=== PATIENT | female | born 1965 | race African-American/Black ===

== ENCOUNTER 2018-07-12 09:28 | Inpatient (IN) | payer OTHER ==
[2018-07-12 09:46] VITALS: BMI 20.9
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
[2018-07-12] MEDS ORDERED: P-EPHED 60MG/TRIPROLIDI 2.5MG TABLET PO PRN (11:48)
[2018-07-12] MEDS ORDERED: LOPERAMIDE HCL 2 MG CAPSULE PO PRN (11:48)
[2018-07-12] MEDS ORDERED: ACETAMINOPHEN 325 MG TABLET (FP) PO PRN (11:48)
[2018-07-12] MEDS ORDERED: hydrOXYzine PAMOATE 25 MG CAPSULE (FP) PO PRN (11:48)
[2018-07-12] MEDS ORDERED: MAG HYDROX/AL HYDROX/SIMETH 30 ML UNIT-DOSE CUP PO PRN (11:48)
[2018-07-12] MEDS ORDERED: MENTHOL/PHENOL 1 EACH UD MM PRN (11:48)
[2018-07-12] MEDS ORDERED: guaiFENesin/D-METHORPHAN HB 10 ML UNIT-DOSE CUPS PO PRN (11:48)
[2018-07-12] MEDS ORDERED: MAGNESIUM CITRATE 300 ML BOTTLE PO PRN (11:48)
[2018-07-12] MEDS ORDERED: METHADONE HCL 10 MG TABLET (FOR DETOX USE ONLY) PO ONE ×2 (12:30→23:00)
[2018-07-12] MEDS: diazePAM 5 MG TABLET PO PRN ×2 (12:35→22:36)
[2018-07-12] MEDS: AMMONIUM LACTATE 12% LOTION 225 GM BOTTLE TP SCH ×2 (14:01→22:37)
[2018-07-12] MEDS: cloNIDine HCL 0.1 MG TABLET PO SCH (22:36)
[2018-07-12] MEDS: MELATONIN 5 MG TABLETS PO PRN (22:36)
[2018-07-12] MEDS: CYCLOBENZAPRINE HCL 10 MG TABLET (FP) PO PRN (22:36)
[2018-07-12] MEDS: MAGNESIUM HYDROX 2400MG/30ML ORAL SUSPENSION 30 ML CUP PO PRN (22:40)
[2018-07-12 22:49] LABS: URINE APPEARANCE SLCLOUDY; URINE BILIRUBIN NEGATIVE (<2.0 mg/dL); URINE COLOR YELLOW; URINE GLUCOSE (UA) NEGATIVE (NEGATIVE); URINE KETONE NEGATIVE (NEGATIVE); URINE LEUK ESTERASE NEGATIVE (NEGATIVE); URINE NITRITE POSITIVE (NEGATIVE); URINE PROTEIN NEGATIVE (NEGATIVE); URINE UROBILINOGEN NEGATIVE mg/dL (0.2-1.0)
[2018-07-12 22:55] LABS: EPI CELLS RARE /HPF (FEW); URINE MUCUS RARE
[2018-07-12] MEDS: THIAMINE HCL 100 MG TABLET (FP) PO SCH (23:00)
--- NOTE | 2018-07-13 09:59 | PN ---
S COWS - Scale Resting Pulse: 0= [place] 80 or Below Sweatin= Chills/Flushing Restless Observation: 1= Difficult to Sit Still Pupil Size: 1= Pupils >than Normal Bone or Joint Aches: 2= Severe Diffuse Aches Runny Nose/ Eye Tearin= Runny Nose/Eyes GI Upset > 30mins: 1= Stomach Cramp Tremor Observation of Outstretched Hands: 1= Tremor [place], Not Seen Yawning Observation: 1= 1-2x During Session Anxiety or Irritability: 1=Feels Anxious/Irritable Goose Flesh Skin: 3=Piloerection COWS Score: 14 BHS Progress Note (SOAP) Subjective: running nose body aches joints pain back pain tremor sweat anxiety Objective: 07/13/18 09:59 Vital Signs Temperature 98.3 F 07/13/18 09:23 Pulse Rate 65 07/13/18 09:23 Respiratory Rate 18 07/13/18 09:23 Blood Pressure 113/71 07/13/18 09:23 O2 Sat by Pulse Oximetry (%) Laboratory Last Values Urine Color Yellow 07/12/18 22:30 Urine Appearance Slcloudy 07/12/18 22:30 Urine pH 6.0 (5.0-8.0) 07/12/18 22:30 Ur Specific [place] 1.020 (1.010-1.035) 07/12/18 22:30 Urine Protein Negative (NEGATIVE) 07/12/18 22:30 Urine Glucose (UA) Negative (NEGATIVE) 07/12/18 22:30 Urine Ketones Negative (NEGATIVE) 07/12/18 22:30 Urine Blood Negative (NEGATIVE) 07/12/18 22:30 Urine Nitrite Positive (NEGATIVE) 07/12/18 22:30 Urine Bilirubin Negative (<2.0 mg/dL) 07/12/18 22:30 Urine Urobilinogen Negative mg/dL (0.2-1.0) 07/12/18 22:30 Ur Leukocyte Esterase Negative (NEGATIVE) 07/12/18 22:30 Urine WBC (Auto) 2 /hpf (3-5) 07/12/18 22:30 Urine RBC (Auto) <1 /hpf (0-3) 07/12/18 22:30 Ur Epithelial Cells Rare /HPF (FEW) 07/12/18 22:30 Urine Mucus Rare 07/12/18 22:30 lab noted Assessment: 07/13/18 10:00 withdrawal sx Plan: continue detox
[2018-07-13] MEDS ORDERED: METHADONE HCL 10 MG TABLET (FOR DETOX USE ONLY) PO ONE (10:00)
[2018-07-13 10:30] LABS: HEMOGLOBIN 11.3 GM/dL (10.7-15.3); MCH 36.3 pg (25.7-33.7); MCHC 35.2 g/dl (32.0-36.0); MEAN CELL VOLUME 103.2 fl (80-96); MEAN PLT VOLUME 8.6 fl (7.5-11.1); PLATELET COUNT 202 K/MM3 (134-434); RBC 3.11 M/mm3 (3.60-5.2); RDW 14.5 % (11.6-15.6); WHITE BLOOD COUNT 2.3 K/mm3 (4.0-10.0)
[2018-07-13 10:45] LABS: ALK PHOS 113 U/L (45-117); ANION GAP 6 MMOL/L (8-16); BILIRUBIN,TOTAL 0.1 mg/dL (0.2-1); BLOOD UREA NITROGEN 25 mg/dL (7-18); CALCIUM 8.3 mg/dL (8.5-10.1); CHLORIDE 106 mmol/L (98-107); CO2 29 mmol/L (21-32); CREATININE 0.9 mg/dL (0.55-1.3); GLUCOSE,RANDOM 85 mg/dL (74-106); POTASSIUM 4.3 mmol/L (3.5-5.1); SGOT/AST 35 U/L (15-37); SGPT/ALT 58 U/L (13-61); SODIUM 141 mmol/L (136-145); TOT PROT 6.8 g/dl (6.4-8.2)
[2018-07-13] MEDS: AMMONIUM LACTATE 12% LOTION 225 GM BOTTLE TP SCH ×2 (11:00→22:09)
[2018-07-13] MEDS: PRENATAL VITAMINS W/ FOLIC ACID TABLET (FP) PO SCH (11:10)
[2018-07-13] MEDS: cloNIDine HCL 0.1 MG TABLET PO SCH ×2 (11:10→22:07)
[2018-07-13] MEDS: diazePAM 5 MG TABLET PO PRN ×2 (11:14→22:07)
[2018-07-13] MEDS: IBUPROFEN 400 MG TABLET (FP) PO PRN (19:27)
[2018-07-13] MEDS: MAGNESIUM HYDROX 2400MG/30ML ORAL SUSPENSION 30 ML CUP PO PRN (22:06)
[2018-07-13] MEDS: THIAMINE HCL 100 MG TABLET (FP) PO SCH (22:06)
[2018-07-14] MEDS ORDERED: METHADONE HCL 5 MG TABLET (FOR DETOX USE ONLY) PO ONE (10:00)
[2018-07-14] MEDS: cloNIDine HCL 0.1 MG TABLET PO SCH ×2 (10:29→22:11)
[2018-07-14] MEDS: PRENATAL VITAMINS W/ FOLIC ACID TABLET (FP) PO SCH (10:29)
[2018-07-14] MEDS: diazePAM 5 MG TABLET PO PRN (10:30)
[2018-07-14] MEDS: AMMONIUM LACTATE 12% LOTION 225 GM BOTTLE TP SCH ×2 (10:30→22:36)
--- NOTE | 2018-07-14 11:58 | PN ---
BHS COWS - Scale Resting Pulse: 0= [place] 80 or Below Sweatin= No chills or Flushing Restless Observation: 1= Difficult to Sit Still Pupil Size: 2= Moderately Dilated Bone or Joint Aches: 2= Severe Diffuse Aches Runny Nose/ Eye Tearin= None GI Upset > 30mins: 2= Nausea/Diarrhea Tremor Observation of Outstretched Hands: 0= None Yawning Observation: 0= None Anxiety or Irritability: 2=Irritable/Anxious Goose Flesh Skin: 0=Smooth Skin COWS Score: 9 BHS Progress Note (SOAP) Subjective: PATIENT ANXIETY, RESTLESS. C/O NAUSEA/DIARRHEA AND DISCHARGE FROM NIPPLES X MONTHS. DENIES PAIN/TENDERNESS BREASTS. Objective: 07/14/18 11:58 Laboratory Tests 07/12/18 07/13/18 07/13/18 22:30 07:30 07:30 WBC 2.3 L RBC 3.11 L Hgb 11.3 Hct 32.0 L MCV 103.2 H MCH 36.3 H MCHC 35.2 RDW 14.5 Plt Count 202 MPV 8.6 Sodium 141 Potassium 4.3 Chloride 106 Carbon Dioxide 29 Anion Gap 6 L BUN 25 H Creatinine 0.9 Creat Clearance w eGFR > 60 Random Glucose 85 Calcium 8.3 L Total Bilirubin 0.1 L AST 35 ALT 58 Alkaline Phosphatase 113 Total Protein 6.8 Albumin 3.0 L Urine Color Yellow Urine Appearance Slcloudy Urine pH 6.0 Ur Specific [place] 1.020 Urine Protein Negative Urine Glucose (UA) Negative Urine Ketones Negative Urine Blood Negative Urine Nitrite Positive Urine Bilirubin Negative Urine Urobilinogen Negative Ur Leukocyte Esterase Negative Urine WBC (Auto) 2 Urine RBC (Auto) <1 Ur Epithelial Cells Rare Urine Mucus Rare RPR Titer 07/13/18 07:30 WBC RBC Hgb Hct MCV MCH MCHC RDW Plt Count MPV Sodium Potassium Chloride Carbon Dioxide Anion Gap BUN Creatinine Creat Clearance w eGFR Random Glucose Calcium Total Bilirubin AST ALT Alkaline Phosphatase Total Protein Albumin Urine Color Urine Appearance Urine pH Ur Specific [place] Urine Protein Urine Glucose (UA) Urine Ketones Urine Blood Urine Nitrite Urine Bilirubin Urine Urobilinogen Ur Leukocyte Esterase Urine WBC (Auto) Urine RBC (Auto) Ur Epithelial Cells Urine Mucus RPR Titer Nonreactive PE: SKIN WARM AND DRY ALERT AND ORIENTED X 3 B/L BREAST SOFT, NO PALPABLE LUMPS, + SMALL AMOUNT OF MILKY DISCHARGE FROM B/L NIPPLES CAR S1S2 RESP CTA BL EXT FULL ROM, AMB AD SUBHASH +ANXIETY 07/14/18 12:01 Assessment: 07/14/18 12:01 WITHDRAWAL SX NIPPLE DISCHARGE Plan: CONTINUE DETOX ENCOURAGE ORAL FLUIDS PATIENT RECOMMENDED TO FOLLOW UP WITH PCP UPON D/C TO ADDRESS BREAST SYMPTOMS AND EDUCATED ON IMPORTANCE OF HAVING FOLLOW UP DONE CASSIDY PATIENT VERBALIZED UNDERSTANDING OF INFORMATION PROVIDED CONTINUE TO MONITOR CLINICALLY
[2018-07-14] MEDS: MELATONIN 5 MG TABLETS PO PRN (22:12)
[2018-07-14] MEDS: THIAMINE HCL 100 MG TABLET (FP) PO SCH (22:12)
--- NOTE | 2018-07-15 08:47 | PN ---
BHS Progress Note (SOAP) Subjective: sweats shakes irritable interrupted sleep Objective: 07/15/18 08:43 Vital Signs Temperature 98.2 F 07/15/18 06:38 Pulse Rate 68 07/15/18 06:38 Respiratory Rate 18 07/15/18 06:38 Blood Pressure 121/74 07/15/18 06:38 O2 Sat by Pulse Oximetry (%) Laboratory Tests 07/12/18 07/13/18 07/13/18 22:30 07:30 07:30 WBC 2.3 L RBC 3.11 L Hgb 11.3 Hct 32.0 L MCV 103.2 H MCH 36.3 H MCHC 35.2 RDW 14.5 Plt Count 202 MPV 8.6 Sodium 141 Potassium 4.3 Chloride 106 Carbon Dioxide 29 Anion Gap 6 L BUN 25 H Creatinine 0.9 Creat Clearance w eGFR > 60 Random Glucose 85 Calcium 8.3 L Total Bilirubin 0.1 L AST 35 ALT 58 Alkaline Phosphatase 113 Total Protein 6.8 Albumin 3.0 L Urine Color Yellow Urine Appearance Slcloudy Urine pH 6.0 Ur Specific [place] 1.020 Urine Protein Negative Urine Glucose (UA) Negative Urine Ketones Negative Urine Blood Negative Urine Nitrite Positive Urine Bilirubin Negative Urine Urobilinogen Negative Ur Leukocyte Esterase Negative Urine WBC (Auto) 2 Urine RBC (Auto) <1 Ur Epithelial Cells Rare Urine Mucus Rare RPR Titer 07/13/18 07:30 WBC RBC Hgb Hct MCV MCH MCHC RDW Plt Count MPV Sodium Potassium Chloride Carbon Dioxide Anion Gap BUN Creatinine Creat Clearance w eGFR Random Glucose Calcium Total Bilirubin AST ALT Alkaline Phosphatase Total Protein Albumin Urine Color Urine Appearance Urine pH Ur Specific [place] Urine Protein Urine Glucose (UA) Urine Ketones Urine Blood Urine Nitrite Urine Bilirubin Urine Urobilinogen Ur Leukocyte Esterase Urine WBC (Auto) Urine RBC (Auto) Ur Epithelial Cells Urine Mucus RPR Titer Nonreactive aaox3 ambulating no acute distress Assessment: 07/15/18 08:46 withdrawal sx Plan: continue detox increase fluids
[2018-07-15] MEDS ORDERED: METHADONE HCL 5 MG TABLET (FOR DETOX USE ONLY) PO ONE (10:00)
[2018-07-15] MEDS: cloNIDine HCL 0.1 MG TABLET PO SCH ×2 (10:18→22:34)
[2018-07-15] MEDS: PRENATAL VITAMINS W/ FOLIC ACID TABLET (FP) PO SCH (10:18)
[2018-07-15] MEDS: CYCLOBENZAPRINE HCL 10 MG TABLET (FP) PO PRN ×2 (10:18→19:29)
[2018-07-15] MEDS: diazePAM 5 MG TABLET PO PRN (10:19)
[2018-07-15 10:25] LABS: BASO % 0.3 % (0-2.0); EOS % 2.7 % (0-4.5); HEMATOCRIT 32.8 % (32.4-45.2); HEMOGLOBIN 10.9 GM/dL (10.7-15.3); LYMPH % 40.6 % (8-40); MCH 31.9 pg (25.7-33.7); MCHC 33.1 g/dl (32.0-36.0); MEAN CELL VOLUME 96.6 fl (80-96); MEAN PLT VOLUME 8.6 fl (7.5-11.1); NEUT % 42.4 % (42.8-82.8); PLATELET COUNT 214 K/MM3 (134-434); RDW 14.9 % (11.6-15.6); WHITE BLOOD COUNT 3.4 K/mm3 (4.0-10.0)
[2018-07-15] MEDS: AMMONIUM LACTATE 12% LOTION 225 GM BOTTLE TP SCH ×2 (11:00→22:37)
[2018-07-15] MEDS: MELATONIN 5 MG TABLETS PO PRN (22:34)
[2018-07-15] MEDS: THIAMINE HCL 100 MG TABLET (FP) PO SCH (22:34)
[2018-07-16] MEDS ORDERED: METHADONE HCL 10 MG TABLET (FOR DETOX USE ONLY) PO ONE (10:00)
[2018-07-16] MEDS: PRENATAL VITAMINS W/ FOLIC ACID TABLET (FP) PO SCH (10:27)
[2018-07-16] MEDS: cloNIDine HCL 0.1 MG TABLET PO SCH ×2 (10:27→22:18)
[2018-07-16] MEDS: AMMONIUM LACTATE 12% LOTION 225 GM BOTTLE TP SCH ×2 (10:28→22:20)
--- NOTE | 2018-07-16 10:33 | PN ---
S Progress Note (SOAP) Subjective: feeling better no body aches no joints pain sleep better at night social with peers in day room and hallway Objective: 07/16/18 10:31 Vital Signs Temperature 100.4 F H 07/16/18 09:06 Pulse Rate 69 07/16/18 09:06 Respiratory Rate 18 07/16/18 09:06 Blood Pressure 120/68 07/16/18 09:06 O2 Sat by Pulse Oximetry (%) Laboratory Last Values WBC 3.4 K/mm3 (4.0-10.0) L 07/15/18 07:00 RBC 3.40 M/mm3 (3.60-5.2) L 07/15/18 07:00 Hgb 10.9 GM/dL (10.7-15.3) 07/15/18 07:00 Hct 32.8 % (32.4-45.2) 07/15/18 07:00 MCV 96.6 fl (80-96) H D 07/15/18 07:00 MCH 31.9 pg (25.7-33.7) D 07/15/18 07:00 MCHC 33.1 g/dl (32.0-36.0) 07/15/18 07:00 RDW 14.9 % (11.6-15.6) 07/15/18 07:00 Plt Count 214 K/MM3 (134-434) 07/15/18 07:00 MPV 8.6 fl (7.5-11.1) 07/15/18 07:00 Absolute Neuts (auto) 1.4 K/mm3 (1.5-8.0) L 07/15/18 07:00 Neutrophils % 42.4 % (42.8-82.8) L 07/15/18 07:00 Lymphocytes % 40.6 % (8-40) H 07/15/18 07:00 Monocytes % 14.0 % (3.8-10.2) H 07/15/18 07:00 Eosinophils % 2.7 % (0-4.5) 07/15/18 07:00 Basophils % 0.3 % (0-2.0) 07/15/18 07:00 Nucleated RBC % 0 % (0-0) 07/15/18 07:00 Sodium 141 mmol/L (136-145) 07/13/18 07:30 Potassium 4.3 mmol/L (3.5-5.1) 07/13/18 07:30 Chloride 106 mmol/L (98-107) 07/13/18 07:30 Carbon Dioxide 29 mmol/L (21-32) 07/13/18 07:30 Anion Gap 6 MMOL/L (8-16) L 07/13/18 07:30 BUN 25 mg/dL (7-18) H 07/13/18 07:30 Creatinine 0.9 mg/dL (0.55-1.3) 07/13/18 07:30 Creat Clearance w eGFR > 60 (>60) 07/13/18 07:30 Random Glucose 85 mg/dL (74-106) 07/13/18 07:30 Calcium 8.3 mg/dL (8.5-10.1) L 07/13/18 07:30 Total Bilirubin 0.1 mg/dL (0.2-1) L 07/13/18 07:30 AST 35 U/L (15-37) 07/13/18 07:30 ALT 58 U/L (13-61) 07/13/18 07:30 Alkaline Phosphatase 113 U/L (45-117) 07/13/18 07:30 Total Protein 6.8 g/dl (6.4-8.2) 07/13/18 07:30 Albumin 3.0 g/dl (3.4-5.0) L 07/13/18 07:30 Urine Color Yellow 07/12/18 22:30 Urine Appearance Slcloudy 07/12/18 22:30 Urine pH 6.0 (5.0-8.0) 07/12/18 22:30 Ur Specific [place] 1.020 (1.010-1.035) 07/12/18 22:30 Urine Protein Negative (NEGATIVE) 07/12/18 22:30 Urine Glucose (UA) Negative (NEGATIVE) 07/12/18 22: Urine Ketones Negative (NEGATIVE) 07/12/18 22:30 Urine Blood Negative (NEGATIVE) 07/12/18 22:30 Urine Nitrite Positive (NEGATIVE) 07/12/18 22:30 Urine Bilirubin Negative (<2.0 mg/dL) 07/12/18 22: Urine Urobilinogen Negative mg/dL (0.2-1.0) 07/12/18 22:30 Ur Leukocyte Esterase Negative (NEGATIVE) 07/12/18 22:30 Urine WBC (Auto) 2 /hpf (3-5) 07/12/18 22:30 Urine RBC (Auto) <1 /hpf (0-3) 07/12/18 22:30 Ur Epithelial Cells Rare /HPF (FEW) 07/12/18 22:30 Urine Mucus Rare 07/12/18 22:30 RPR Titer Nonreactive (NONREACTIVE) 07/13/18 07:30 lab noted Assessment: 07/16/18 10:32 mild withdrawal sx Plan: medically supervised detox
[2018-07-16] MEDS: IBUPROFEN 400 MG TABLET (FP) PO PRN (20:37)
[2018-07-16] MEDS: THIAMINE HCL 100 MG TABLET (FP) PO SCH (22:18)
[2018-07-16] MEDS: MELATONIN 5 MG TABLETS PO PRN (22:18)
[2018-07-17] MEDS ORDERED: METHADONE HCL 5 MG TABLET (FOR DETOX USE ONLY) PO ONE (06:00)
--- NOTE | 2018-07-17 08:45 | DS ---
[facility] Detox Discharge Summary Admission Date: 07/12/18 Discharge Date: 07/17/18 - History Present History: Opioid Dependence Additional Comments: 52 years old female admitted on 07/12/18 for opiate withdrawal sx completed opiate detox regimen tolerated well denies opiate withdrawal sx alert oriented x 3 no acute distress aftercare [facility] - Physical Exam Results Vital Signs: Vital Signs Temperature 98.1 F 07/17/18 06:56 Pulse Rate 53 L 07/17/18 06:56 Respiratory Rate 18 07/17/18 06:56 Blood Pressure 130/77 07/17/18 06:56 O2 Sat by Pulse Oximetry (%) Pertinent Admission Physical Exam Findings: opiate withdrawal sx Vital Signs Temperature 98.2 F 07/17/18 09:43 Pulse Rate 65 07/17/18 09:43 Respiratory Rate 18 07/17/18 09:43 Blood Pressure 114/78 07/17/18 09:43 O2 Sat by Pulse Oximetry (%) Laboratory Last Values WBC 3.4 K/mm3 (4.0-10.0) L 07/15/18 07:00 RBC 3.40 M/mm3 (3.60-5.2) L 07/15/18 07:00 Hgb 10.9 GM/dL (10.7-15.3) 07/15/18 07:00 Hct 32.8 % (32.4-45.2) 07/15/18 07:00 MCV 96.6 fl (80-96) H D 07/15/18 07:00 MCH 31.9 pg (25.7-33.7) D 07/15/18 07:00 MCHC 33.1 g/dl (32.0-36.0) 07/15/18 07:00 RDW 14.9 % (11.6-15.6) 07/15/18 07:00 Plt Count 214 K/MM3 (134-434) 07/15/18 07:00 MPV 8.6 fl (7.5-11.1) 07/15/18 07:00 Absolute Neuts (auto) 1.4 K/mm3 (1.5-8.0) L 07/15/18 07:00 Neutrophils % 42.4 % (42.8-82.8) L 07/15/18 07:00 Lymphocytes % 40.6 % (8-40) H 07/15/18 07:00 Monocytes % 14.0 % (3.8-10.2) H 07/15/18 07:00 Eosinophils % 2.7 % (0-4.5) 07/15/18 07:00 Basophils % 0.3 % (0-2.0) 07/15/18 07:00 Nucleated RBC % 0 % (0-0) 07/15/18 07:00 Sodium 141 mmol/L (136-145) 07/13/18 07:30 Potassium 4.3 mmol/L (3.5-5.1) 07/13/18 07:30 Chloride 106 mmol/L (98-107) 07/13/18 07:30 Carbon Dioxide 29 mmol/L (21-32) 07/13/18 07:30 Anion Gap 6 MMOL/L (8-16) L 07/13/18 07:30 BUN 25 mg/dL (7-18) H 07/13/18 07:30 Creatinine 0.9 mg/dL (0.55-1.3) 07/13/18 07:30 Creat Clearance w eGFR > 60 (>60) 07/13/18 07:30 Random Glucose 85 mg/dL (74-106) 07/13/18 07:30 Calcium 8.3 mg/dL (8.5-10.1) L 07/13/18 07:30 Total Bilirubin 0.1 mg/dL (0.2-1) L 07/13/18 07:30 AST 35 U/L (15-37) 07/13/18 07:30 ALT 58 U/L (13-61) 07/13/18 07:30 Alkaline Phosphatase 113 U/L (45-117) 07/13/18 07:30 Total Protein 6.8 g/dl (6.4-8.2) 07/13/18 07:30 Albumin 3.0 g/dl (3.4-5.0) L 07/13/18 07:30 Urine Color Yellow 07/12/18 22:30 Urine Appearance Slcloudy 07/12/18 22:30 Urine pH 6.0 (5.0-8.0) 07/12/18 22:30 Ur Specific [place] 1.020 (1.010-1.035) 07/12/18 22:30 Urine Protein Negative (NEGATIVE) 07/12/18 22:30 Urine Glucose (UA) Negative (NEGATIVE) 07/12/18 22:30 Urine Ketones Negative (NEGATIVE) 07/12/18 22:30 Urine Blood Negative (NEGATIVE) 07/12/18 22:30 Urine Nitrite Positive (NEGATIVE) 07/12/18 22:30 Urine Bilirubin Negative (<2.0 mg/dL) 07/12/18 22:30 Urine Urobilinogen Negative mg/dL (0.2-1.0) 07/12/18 22:30 Ur Leukocyte Esterase Negative (NEGATIVE) 07/12/18 22:30 Urine WBC (Auto) 2 /hpf (3-5) 07/12/18 22:30 Urine RBC (Auto) <1 /hpf (0-3) 07/12/18 22:30 Ur Epithelial Cells Rare /HPF (FEW) 07/12/18 22:30 Urine Mucus Rare 07/12/18 22:30 RPR Titer Nonreactive (NONREACTIVE) 07/13/18 07:30 lab noted - Treatment Hospital Course: Detox Protocol Followed, Detoxed Safely, Responded well, Discharged Condition Good, Rehab Referral Accepted Patient has Accepted a Rehab Referral to: [facility] - Medication Discharge Medications: Ambulatory Orders NK [No Known Home Medication] 07/12/18 - Diagnosis (1) Nicotine dependence Current Visit: Yes Status: Acute Qualifiers: Nicotine product type: cigarettes Substance use status: in withdrawal Qualified Code(s): F17.213 - Nicotine dependence, cigarettes, with withdrawal (2) Weight loss Current Visit: Yes Status: Acute (3) HIV (human immunodeficiency virus infection) Current Visit: Yes Status: Chronic (4) Opioid dependence with withdrawal Current Visit: Yes Status: Acute - AMA Did Patient Leave Against Medical Advice: No
[2018-07-17 09:43] VITALS: BP 114/78; PULSE 65; TEMP 98.2
[2018-07-17] MEDS: PRENATAL VITAMINS W/ FOLIC ACID TABLET (FP) PO SCH (10:42)
[2018-07-17] MEDS: AMMONIUM LACTATE 12% LOTION 225 GM BOTTLE TP SCH (10:43)
[2018-07-17] MEDS: cloNIDine HCL 0.1 MG TABLET PO SCH (10:44)
== END 2018-07-17 11:37 | disposition other institution (70) | DRG 773 ==
LOC: YASAS 09:28 → Y6N 11:46
PROVIDERS: ADMIT Neuromusculoskeletal Medicine & OMM; ATTEND Neuromusculoskeletal Medicine & OMM
PROC: HZ2ZZZZ Detoxification Services for Substance Abuse Treatment (ICD-10-PCS; principal; 2018-07-12)
DX: F11.23 Opioid dependence with withdrawal (principal); F14.20 Cocaine dependence, uncomplicated; F17.213 Nicotine dependence, cigarettes, with withdrawal; L85.3 Xerosis cutis; B18.1 Chronic viral hepatitis B without delta-agent; Z21 Asymptomatic human immunodeficiency virus [HIV] infection status; R63.4 Abnormal weight loss; Z68.21 Body mass index [BMI] 21.0-21.9, adult; Z90.49 Acquired absence of other specified parts of digestive tract; Z87.59 Personal history of other complications of pregnancy, childbirth and the puerperium; S22.32XD Fracture of one rib, left side, subsequent encounter for fracture with routine healing; X58.XXXD Exposure to other specified factors, subsequent encounter
CPT/HCPCS: 36415; 80053; 81003; 81015; 85025; 85027; 86593; J0735

== ENCOUNTER 2018-07-17 11:08 | Inpatient (IN) | payer OTHER ==
[2018-07-17 12:04] VITALS: BMI 21.8
[2018-07-17] MEDS ORDERED: LOPERAMIDE HCL 2 MG CAPSULE PO PRN (12:53)
[2018-07-17] MEDS ORDERED: MAGNESIUM HYDROX 2400MG/30ML ORAL SUSPENSION 30 ML CUP PO PRN (12:53)
[2018-07-17] MEDS ORDERED: MAG HYDROX/AL HYDROX/SIMETH 30 ML UNIT-DOSE CUP PO PRN (12:53)
[2018-07-17] MEDS ORDERED: ACETAMINOPHEN 325 MG TABLET (FP) PO PRN (12:53)
[2018-07-17] MEDS ORDERED: guaiFENesin/D-METHORPHAN HB 10 ML UNIT-DOSE CUPS PO PRN (12:53)
[2018-07-17] MEDS ORDERED: NICOTINE POLACRILEX 2 MG GUM BUC PRN (12:53)
[2018-07-17] MEDS ORDERED: P-EPHED 60MG/TRIPROLIDI 2.5MG TABLET PO PRN (12:53)
[2018-07-17] MEDS ORDERED: MAGNESIUM CITRATE 300 ML BOTTLE PO PRN (12:53)
[2018-07-17] MEDS ORDERED: MENTHOL/PHENOL 1 EACH UD MM PRN (12:53)
--- NOTE | 2018-07-17 12:55 | HP ---
JOSEPH [facility] Rehab Assess/Revision - Admission History Admitted to Rehab from: [facility] Date of Admission to Rehab: 07/17/18 - Vital signs Vital Signs: Vital Signs Period Temp Pulse Resp BP Sys/Gaines Pulse Ox Last 24 Hr 97.9 F-97.9 F 78-78 18-18 123-123/88-88 - Findings Detox History & Physical reviewed: Yes Concur with findings: Yes Inpatient Rehab Admission - Initial Determination Are CD services needed?: Yes Free of communicable disease: Yes Not in need of hospitalization: Yes - Rehab Admission Criteria Patient is meeting Inpatient Rehab admission criteria:: Yes
[2018-07-17] MEDS: THIAMINE HCL 100 MG TABLET (FP) PO SCH (21:49)
[2018-07-18] MEDS: hydrOXYzine PAMOATE 50 MG CAPSULE (FP) PO PRN ×2 (00:38→21:16)
[2018-07-18] MEDS: PRENATAL VITAMINS W/ FOLIC ACID TABLET (FP) PO SCH (10:01)
[2018-07-18] MEDS: NICOTINE 14 MG/24 HOURS TOPICAL PATCH TD SCH (10:02)
--- NOTE | 2018-07-18 12:15 | HP ---
Psychiatrist Admission - Data Date of interview: 07/18/18 Admission source: [facility] Identifying data: This is the first admission to [facility] for thsi 52 years old female AA single mother of 30 yo son,supported by [facility]. Medical History: Significnant for HIV+,H/O Cholecystectomy,Ectopic . Psychiatric History: Patient denies . Physical/Sexual Abuse/Trauma History: Patient denies. Vital Signs: Vital Signs - 24 hr 07/18/18 07/18/18 03:30 06:58 Temperature 98.0 F Pulse Rate 54 L Respiratory 16 17 Rate Blood Pressure 131/89 Allergies/Adverse Reactions: Allergies Allergy/AdvReac Type Severity Reaction Status Date / Time No Known Allergies Allergy Verified 07/12/18 10:11 Concur with the findings of this exam: Yes - Substance Abuse/Tx History Hx Alcohol Use: No Hx Substance Use: Yes (crack since 18 yo,spending $200 daily,heroin since 29 yo, 10 bags daily) Substance Use Type: Cocaine, Heroin Hx Substance Use Treatment: Yes (completed inpatient rehab [facility],was absinent 6 months) Mental Status Exam - Mental Status Exam Alert and Oriented to: Time, Place, Person Cognitive Function: Grossly Intact Patient Appearance: Well Groomed Mood: Euthymic Affect: Normal Range Patient Behavior: Cooperative Speech Pattern: Clear Voice Loudness: Normal Thought Process: Goal Oriented Thought Disorder: Not Present Hallucinations: Denies Suicidal Ideation: Denies Homicidal Ideation: Denies Insight/Judgement: Fair Sleep: Fair Appetite: Good Muscle strength/Tone: Normal Gait/Station: Normal Psychiatric Findings - Problem List ([place] 1, 2,3) (1) Cocaine dependence Current Visit: Yes Status: Chronic Qualifiers: (2) Fracture of rib of left side Current Visit: Yes Status: Resolved (3) History of cholecystectomy Current Visit: Yes Status: Inactive (4) History of ectopic Current Visit: Yes Status: Resolved (5) Nicotine dependence Current Visit: Yes Status: Chronic Qualifiers: (6) Opioid dependence Current Visit: Yes Status: Acute (7) HIV (human immunodeficiency virus infection) Current Visit: Yes Status: Chronic - Initial Treatment Plan Initial Treatment Plan: Will monitor progress.
[2018-07-18] MEDS: THIAMINE HCL 100 MG TABLET (FP) PO SCH (21:16)
[2018-07-19] MEDS: PRENATAL VITAMINS W/ FOLIC ACID TABLET (FP) PO SCH (11:00)
[2018-07-19] MEDS: NICOTINE 14 MG/24 HOURS TOPICAL PATCH TD SCH (11:00)
[2018-07-19] MEDS: THIAMINE HCL 100 MG TABLET (FP) PO SCH (23:06)
[2018-07-20] MEDS: NICOTINE 14 MG/24 HOURS TOPICAL PATCH TD SCH (09:33)
[2018-07-20] MEDS: PRENATAL VITAMINS W/ FOLIC ACID TABLET (FP) PO SCH (09:33)
[2018-07-20] MEDS: IBUPROFEN 400 MG TABLET (FP) PO PRN (15:35)
[2018-07-20] MEDS: hydrOXYzine PAMOATE 50 MG CAPSULE (FP) PO PRN (21:43)
[2018-07-20] MEDS: THIAMINE HCL 100 MG TABLET (FP) PO SCH (21:43)
[2018-07-20] MEDS: MELATONIN 5 MG TABLETS PO PRN (21:43)
[2018-07-21] MEDS: NICOTINE 14 MG/24 HOURS TOPICAL PATCH TD SCH (11:00)
[2018-07-21] MEDS: PRENATAL VITAMINS W/ FOLIC ACID TABLET (FP) PO SCH (11:00)
[2018-07-21] MEDS: LIDOCAINE 5% TOPICAL PATCH TP SCH (13:18)
[2018-07-21] MEDS: LIDOCAINE PATCH REMOVAL MC SCH (22:13)
[2018-07-21] MEDS: THIAMINE HCL 100 MG TABLET (FP) PO SCH (22:13)
[2018-07-22] MEDS: IBUPROFEN 400 MG TABLET (FP) PO PRN (09:00)
[2018-07-22] MEDS: LIDOCAINE 5% TOPICAL PATCH TP SCH (09:01)
[2018-07-22] MEDS: PRENATAL VITAMINS W/ FOLIC ACID TABLET (FP) PO SCH (09:01)
[2018-07-22] MEDS: NICOTINE 14 MG/24 HOURS TOPICAL PATCH TD SCH (09:01)
[2018-07-22] MEDS: hydrOXYzine PAMOATE 50 MG CAPSULE (FP) PO PRN (21:25)
[2018-07-22] MEDS: THIAMINE HCL 100 MG TABLET (FP) PO SCH (21:25)
[2018-07-22] MEDS: LIDOCAINE PATCH REMOVAL MC SCH (21:25)
[2018-07-22] MEDS: MELATONIN 5 MG TABLETS PO PRN (21:25)
[2018-07-23] MEDS: PRENATAL VITAMINS W/ FOLIC ACID TABLET (FP) PO SCH (09:52)
[2018-07-23] MEDS: NICOTINE 14 MG/24 HOURS TOPICAL PATCH TD SCH (09:53)
[2018-07-23] MEDS: LIDOCAINE 5% TOPICAL PATCH TP SCH (09:53)
[2018-07-23] MEDS: MELATONIN 5 MG TABLETS PO PRN (21:20)
[2018-07-23] MEDS: THIAMINE HCL 100 MG TABLET (FP) PO SCH (21:20)
[2018-07-23] MEDS: LIDOCAINE PATCH REMOVAL MC SCH (21:20)
[2018-07-23] MEDS: hydrOXYzine PAMOATE 50 MG CAPSULE (FP) PO PRN (21:20)
[2018-07-24 07:17] VITALS: TEMP 98.2
[2018-07-24] MEDS ORDERED: PT OWN MED DRAWER 7, Y5N ONE (08:19)
[2018-07-24] MEDS: PRENATAL VITAMINS W/ FOLIC ACID TABLET (FP) PO SCH (09:34)
[2018-07-24] MEDS: LIDOCAINE 5% TOPICAL PATCH TP SCH (09:34)
[2018-07-24] MEDS: IBUPROFEN 400 MG TABLET (FP) PO PRN (09:35)
[2018-07-24] MEDS: NICOTINE 14 MG/24 HOURS TOPICAL PATCH TD SCH (09:38)
[2018-07-24] MEDS: MELATONIN 5 MG TABLETS PO PRN (21:23)
[2018-07-24] MEDS: THIAMINE HCL 100 MG TABLET (FP) PO SCH (21:23)
[2018-07-24] MEDS: hydrOXYzine PAMOATE 50 MG CAPSULE (FP) PO PRN (21:23)
[2018-07-24] MEDS: LIDOCAINE PATCH REMOVAL MC SCH (21:24)
[2018-07-25] MEDS: PRENATAL VITAMINS W/ FOLIC ACID TABLET (FP) PO SCH (09:47)
[2018-07-25] MEDS: NICOTINE 14 MG/24 HOURS TOPICAL PATCH TD SCH (09:47)
[2018-07-25] MEDS: LIDOCAINE 5% TOPICAL PATCH TP SCH (09:47)
[2018-07-25] MEDS: IBUPROFEN 400 MG TABLET (FP) PO PRN (09:47)
[2018-07-25] MEDS ORDERED: COLLOIDAL OATMEAL 1 BAR EACH TP PRN (10:08)
[2018-07-25] MEDS: MELATONIN 5 MG TABLETS PO PRN (21:44)
[2018-07-25] MEDS: hydrOXYzine PAMOATE 50 MG CAPSULE (FP) PO PRN (21:45)
[2018-07-25] MEDS: LIDOCAINE PATCH REMOVAL MC SCH (21:45)
[2018-07-25] MEDS: THIAMINE HCL 100 MG TABLET (FP) PO SCH (21:46)
[2018-07-26] MEDS: PRENATAL VITAMINS W/ FOLIC ACID TABLET (FP) PO SCH (10:00)
[2018-07-26] MEDS: LIDOCAINE 5% TOPICAL PATCH TP SCH (10:00)
[2018-07-26] MEDS: NICOTINE 14 MG/24 HOURS TOPICAL PATCH TD SCH (10:01)
[2018-07-26] MEDS: LIDOCAINE PATCH REMOVAL MC SCH (21:53)
[2018-07-26] MEDS: THIAMINE HCL 100 MG TABLET (FP) PO SCH (21:53)
[2018-07-27 07:36] VITALS: BP 140/92; PULSE 77
[2018-07-27] MEDS: IBUPROFEN 400 MG TABLET (FP) PO PRN (10:05)
[2018-07-27] MEDS: LIDOCAINE 5% TOPICAL PATCH TP SCH (10:46)
[2018-07-27] MEDS: PRENATAL VITAMINS W/ FOLIC ACID TABLET (FP) PO SCH (11:00)
[2018-07-27] MEDS: NICOTINE 14 MG/24 HOURS TOPICAL PATCH TD SCH (11:00)
[2018-07-27] MEDS: MELATONIN 5 MG TABLETS PO PRN (21:13)
[2018-07-27] MEDS: hydrOXYzine PAMOATE 50 MG CAPSULE (FP) PO PRN (21:14)
[2018-07-27] MEDS: THIAMINE HCL 100 MG TABLET (FP) PO SCH (21:14)
[2018-07-27] MEDS: LIDOCAINE PATCH REMOVAL MC SCH (21:23)
--- NOTE | 2018-07-28 08:24 | PN ---
Psychiatric Progress Note Vital Signs: Vital Signs Period Temp Pulse Resp BP Sys/Gaines Pulse Ox Last 24 Hr Date of Session: 07/28/18 Chief Complaint:: Discharge visit HPI: Patient addressed Cocaine,Opioid dependence . Current Medications: Active Medications Generic Name Dose Route Start Last Admin Trade Name Freq PRN Reason Stop Dose Admin Acetaminophen 650 mg 07/17/18 12:53 Tylenol - PO Q4H PRN FEVER Al Hydroxide/Mg Hydroxide 30 ml 07/17/18 12:53 07/25/18 09:46 Mylanta Oral Suspension - PO 30 ml Q6H PRN Administration DYSPEPSIA Colloidal Oatmeal 1 applic 07/25/18 10:08 07/25/18 12:38 Aveeno Soap - TP 1 bar DAILY PRN Administration HYGEINE Eucalyptus/Menthol/Phenol/Sorbitol 1 each 07/17/18 12:53 Cepastat Lozenge - MM Q4H PRN SORE THROAT Guaifenesin 10 ml 07/17/18 12:53 Robitussin Dm - PO Q6H PRN COUGH Hydroxyzine Pamoate 50 mg 07/17/18 12:53 07/27/18 21:14 Vistaril - PO 50 mg Q4H PRN Administration AGITATION Ibuprofen 400 mg 07/17/18 12:53 07/27/18 10:05 Motrin - PO 400 mg Q6H PRN Administration Pain Level 4-6 Lidocaine 1 patch 07/21/18 12:00 07/27/18 10:46 Lidoderm Patch - TP 1 patch DAILY MYRA Administration Loperamide HCl 4 mg 07/17/18 12:53 Imodium - PO Q6H PRN DIARRHEA Magnesium Citrate 300 ml 07/17/18 12:53 07/25/18 21:45 Citroma - PO 300 ml Q48H PRN Administration CONSTIPATION Magnesium Hydroxide 30 ml 07/17/18 12:53 07/24/18 16:05 Milk Of Magnesia - PO 30 ml DAILY PRN Administration CONSTIPATION Melatonin 5 mg 07/17/18 22:00 07/27/18 21:13 Melatonin PO 5 mg HS PRN Administration INSOMNIA Miscellaneous 1 each 07/21/18 22:00 07/27/18 21:23 Lidoderm Patch Removal MC Not Given DAILY@2200 MYRA Nicotine 14 mg 07/18/18 10:00 07/27/18 11:00 Nicoderm Patch - TD Not Given DAILY MYRA Nicotine Polacrilex 2 mg 07/17/18 12:53 07/25/18 19:09 Nicorette Gum - BUC 2 mg Q2H PRN Administration NICOTINE REPLACEMENT RX Multivit/Folic Acid/Iron 1 tab 07/18/18 10:00 07/27/18 11:00 Vitamins (Sjr) - PO Not Given DAILY MYRA Pseudoephedrine/Triprolidine 1 combo 07/17/18 12:53 Actifed - PO TID PRN NASAL CONGESTION Thiamine HCl 100 mg 07/17/18 22:00 07/27/18 21:14 Vitamin B1 - PO Not Given HS MYRA Current Side Effect: No Lab tests ordered: No Lab tests reviewed: Yes Provider note:: Patient completed this program today .she has met her treatment goals and dana continue to address her issues on outpatient basis. Patient identifies areas of difficulties.Supportive therapy Psychiatric Treatment Plan - Problem List (1) Cocaine dependence Qualifiers: (5) Nicotine dependence Qualifiers:
== END 2018-07-28 08:35 | disposition home or self-care (01) | DRG 772 ==
LOC: YASAS 11:08 → Y3E 11:10
PROVIDERS: ADMIT Psychiatry & Neurology Psychiatry; ATTEND Psychiatry & Neurology Psychiatry
PROC: HZ42ZZZ Group Counseling for Substance Abuse Treatment, Cognitive-Behavioral (ICD-10-PCS; principal; 2018-07-17)
DX: F11.20 Opioid dependence, uncomplicated (principal); F14.20 Cocaine dependence, uncomplicated; F17.210 Nicotine dependence, cigarettes, uncomplicated; Z21 Asymptomatic human immunodeficiency virus [HIV] infection status; S22.32XA Fracture of one rib, left side, initial encounter for closed fracture; Z90.49 Acquired absence of other specified parts of digestive tract; Z87.59 Personal history of other complications of pregnancy, childbirth and the puerperium

== ENCOUNTER 2018-11-06 16:10 | Inpatient (IN) | payer OTHER ==
[2018-11-06 17:10] VITALS: BMI 21.6
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
[2018-11-06] MEDS ORDERED: MAGNESIUM CITRATE 300 ML BOTTLE PO PRN (19:26)
[2018-11-06] MEDS ORDERED: P-EPHED 60MG/TRIPROLIDI 2.5MG TABLET PO PRN (19:26)
[2018-11-06] MEDS ORDERED: MAGNESIUM HYDROX 2400MG/30ML ORAL SUSPENSION 30 ML CUP PO PRN (19:26)
[2018-11-06] MEDS ORDERED: MELATONIN 5 MG TABLETS PO PRN (19:26)
[2018-11-06] MEDS ORDERED: NICOTINE POLACRILEX 2 MG GUM BUC PRN (19:26)
[2018-11-06] MEDS ORDERED: MAG HYDROX/AL HYDROX/SIMETH 30 ML UNIT-DOSE CUP PO PRN (19:26)
[2018-11-06] MEDS ORDERED: ACETAMINOPHEN 325 MG TABLET (FP) PO PRN ×2 (19:26)
[2018-11-06] MEDS ORDERED: BISMUTH SUBSALICYLATE 524 MG/30 ML UD PO PRN (19:26)
[2018-11-06] MEDS ORDERED: guaiFENesin 200 MG/10 ML 10 ML UNIT-DOSE CUPS PO PRN (19:26)
[2018-11-06] MEDS ORDERED: cloNIDine HCL 0.1 MG TABLET PO PRN (19:26)
[2018-11-06] MEDS ORDERED: METHADONE HCL 10 MG TABLET (FOR DETOX USE ONLY) PO ONE ×2 (20:30→23:00)
[2018-11-06] MEDS ORDERED: BACITRACIN 0.9 GM PACKET TP ONE (20:45)
[2018-11-06] MEDS: THIAMINE HCL 100 MG TABLET (FP) PO SCH (22:36)
[2018-11-06] MEDS: CHLORHEXIDINE GLUCONATE 0.12% 15ML CUP MM SCH (22:36)
[2018-11-07] MEDS: MENTHOL/PHENOL 1 EACH UD MM PRN ×3 (04:00→20:02)
[2018-11-07] MEDS: CHLORHEXIDINE GLUCONATE 0.12% 15ML CUP MM SCH ×2 (09:41→22:03)
[2018-11-07] MEDS: PRENATAL VITAMINS W/ FOLIC ACID TABLET (FP) PO SCH (09:41)
[2018-11-07] MEDS: NICOTINE 14 MG/24 HOURS TOPICAL PATCH TD SCH (09:43)
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
[2018-11-07] MEDS ORDERED: METHADONE HCL 10 MG TABLET (FOR DETOX USE ONLY) PO ONE (10:00)
[2018-11-07 11:21] LABS: HEMATOCRIT 34.7 % (32.4-45.2); HEMOGLOBIN 11.8 GM/dL (10.7-15.3); MCH 32.4 pg (25.7-33.7); MCHC 34.1 g/dl (32.0-36.0); PLATELET COUNT 188 K/MM3 (134-434); RBC 3.65 M/mm3 (3.60-5.2); WHITE BLOOD COUNT 2.8 K/mm3 (4.0-10.0)
[2018-11-07 12:00] LABS: ALBUMIN 3.6 g/dl (3.4-5.0); ALK PHOS 114 U/L (45-117); ANION GAP 6 MMOL/L (8-16); BILIRUBIN,TOTAL 0.2 mg/dL (0.2-1); BLOOD UREA NITROGEN 26 mg/dL (7-18); CALCIUM 9.1 mg/dL (8.5-10.1); CHLORIDE 107 mmol/L (98-107); CO2 29 mmol/L (21-32); CREATININE 0.8 mg/dL (0.55-1.3); GLUCOSE,RANDOM 72 mg/dL (74-106); POTASSIUM 4.4 mmol/L (3.5-5.1); SGOT/AST 73 U/L (15-37); SGPT/ALT 85 U/L (13-61); SODIUM 142 mmol/L (136-145); TOT PROT 8.3 g/dl (6.4-8.2)
--- NOTE | 2018-11-07 14:59 | PN ---
BHS COWS - Scale Resting Pulse: 0= ND 80 or Below Sweatin= Chills/Flushing Restless Observation: 0= Sits Still Pupil Size: 0= Normal to Room Light Bone or Joint Aches: 1= Mild Discomfort Runny Nose/ Eye Tearin= Nasal Congestion GI Upset > 30mins: 1= Stomach Cramp Tremor Observation of Outstretched Hands: 1= Tremor [place], Not Seen Yawning Observation: 0= None Anxiety or Irritability: 0= None Goose Flesh Skin: 3=Piloerection COWS Score: 8 BHS Progress Note (SOAP) Subjective: pt states she was fine this morning, with sore throat this afternoon- same as yesterday- no fevers O: Vital Signs - 24 hr 11/06/18 11/06/18 11/07/18 17:08 22:13 06:00 Temperature 98.2 F 99.0 F 98.2 F Pulse Rate 87 81 68 Respiratory 18 18 16 Rate Blood Pressure 126/73 143/86 133/70 11/07/18 11/07/18 09:20 13:53 Temperature 96.3 F L 98.2 F Pulse Rate 67 63 Respiratory 18 18 Rate Blood Pressure 135/73 130/67 Laboratory Tests 11/07/18 11/07/18 11/07/18 07:00 07:00 07:00 WBC 2.8 L RBC 3.65 Hgb 11.8 Hct 34.7 MCV 95.0 MCH 32.4 MCHC 34.1 RDW 15.0 Plt Count 188 MPV 9.0 Sodium 142 Potassium 4.4 Chloride 107 Carbon Dioxide 29 Anion Gap 6 L BUN 26 H Creatinine 0.8 Creat Clearance w eGFR 75.03 Random Glucose 72 L Calcium 9.1 Total Bilirubin 0.2 AST 73 H ALT 85 H Alkaline Phosphatase 114 Total Protein 8.3 H Albumin 3.6 RPR Titer Nonreactive pt with h/o HIV continue heroin detox protocol- d/w pt MAT- suboxone/methadone f/u PCP at discharge
[2018-11-07] MEDS: THIAMINE HCL 100 MG TABLET (FP) PO SCH (22:03)
[2018-11-07] MEDS: METHOCARBAMOL 500 MG TABLET PO PRN (22:03)
[2018-11-07] MEDS: traZODone HCL 50 MG TABLET (FP) PO SCH (22:03)
[2018-11-08] MEDS ORDERED: METHADONE HCL 10 MG TABLET (FOR DETOX USE ONLY) PO ONE (10:00)
[2018-11-08] MEDS: PRENATAL VITAMINS W/ FOLIC ACID TABLET (FP) PO SCH (10:25)
[2018-11-08] MEDS: NICOTINE 14 MG/24 HOURS TOPICAL PATCH TD SCH (10:25)
--- NOTE | 2018-11-08 10:56 | PN ---
BHS Progress Note (SOAP) Subjective: c/o body aches, back pain, sore throat Objective: 11/08/18 10:56 Vital Signs Temperature 97.7 F 11/08/18 09:35 Pulse Rate 71 11/08/18 09:35 Respiratory Rate 18 11/08/18 09:35 Blood Pressure 142/88 11/08/18 09:35 O2 Sat by Pulse Oximetry (%) Laboratory Last Values WBC 2.8 K/mm3 (4.0-10.0) L 11/07/18 07:00 RBC 3.65 M/mm3 (3.60-5.2) 11/07/18 07:00 Hgb 11.8 GM/dL (10.7-15.3) 11/07/18 07:00 Hct 34.7 % (32.4-45.2) 11/07/18 07:00 MCV 95.0 fl (80-96) 11/07/18 07:00 MCH 32.4 pg (25.7-33.7) 11/07/18 07:00 MCHC 34.1 g/dl (32.0-36.0) 11/07/18 07:00 RDW 15.0 % (11.6-15.6) 11/07/18 07:00 Plt Count 188 K/MM3 (134-434) 11/07/18 07:00 MPV 9.0 fl (7.5-11.1) 11/07/18 07:00 Sodium 142 mmol/L (136-145) 11/07/18 07:00 Potassium 4.4 mmol/L (3.5-5.1) 11/07/18 07:00 Chloride 107 mmol/L (98-107) 11/07/18 07:00 Carbon Dioxide 29 mmol/L (21-32) 11/07/18 07:00 Anion Gap 6 MMOL/L (8-16) L 11/07/18 07:00 BUN 26 mg/dL (7-18) H 11/07/18 07:00 Creatinine 0.8 mg/dL (0.55-1.3) 11/07/18 07:00 Creat Clearance w eGFR 75.03 (>60) 11/07/18 07:00 Random Glucose 72 mg/dL (74-106) L 11/07/18 07:00 Calcium 9.1 mg/dL (8.5-10.1) 11/07/18 07:00 Total Bilirubin 0.2 mg/dL (0.2-1) 11/07/18 07:00 AST 73 U/L (15-37) H 11/07/18 07:00 ALT 85 U/L (13-61) H 11/07/18 07:00 Alkaline Phosphatase 114 U/L (45-117) 11/07/18 07:00 Total Protein 8.3 g/dl (6.4-8.2) H 11/07/18 07:00 Albumin 3.6 g/dl (3.4-5.0) 11/07/18 07:00 RPR Titer Nonreactive (NONREACTIVE) 11/07/18 07:00 11/08/18 14:27 Ax3 no distress back pain full ROM ambulating Assessment: 11/08/18 11:14 withdrawal sx acute pharyngitis Plan: withdrawal continue detox increase PO fluids continue to monitor
[2018-11-08] MEDS: CHLORHEXIDINE GLUCONATE 0.12% 15ML CUP MM SCH ×2 (12:56→22:26)
[2018-11-08] MEDS: MENTHOL/PHENOL 1 EACH UD MM PRN (19:42)
[2018-11-08] MEDS: traZODone HCL 50 MG TABLET (FP) PO SCH (22:26)
[2018-11-08] MEDS: THIAMINE HCL 100 MG TABLET (FP) PO SCH (22:26)
[2018-11-09] MEDS ORDERED: METHADONE HCL 10 MG TABLET (FOR DETOX USE ONLY) PO ONE (10:00)
[2018-11-09] MEDS ORDERED: IBUPROFEN 400 MG TABLET (FP) PO ONE (10:08)
[2018-11-09] MEDS: NICOTINE 14 MG/24 HOURS TOPICAL PATCH TD SCH (10:24)
[2018-11-09] MEDS: CHLORHEXIDINE GLUCONATE 0.12% 15ML CUP MM SCH ×2 (10:24→22:25)
[2018-11-09] MEDS: PRENATAL VITAMINS W/ FOLIC ACID TABLET (FP) PO SCH (10:24)
[2018-11-09] MEDS ORDERED: cloNIDine HCL 0.1 MG TABLET PO PRN (15:53)
--- NOTE | 2018-11-09 15:54 | PN ---
[facility] Progress Note (SOAP) Subjective: Headache, neck pain Objective: 11/09/18 15:49 Last Vital Signs Temp Pulse Resp BP Pulse Ox 98.3 F 71 18 149/79 11/09/18 13:13 11/09/18 13:13 11/09/18 13:13 11/09/18 13:13 b/p noted Laboratory Tests 11/07/18 11/07/18 11/07/18 07:00 07:00 07:00 WBC 2.8 L RBC 3.65 Hgb 11.8 Hct 34.7 MCV 95.0 MCH 32.4 MCHC 34.1 RDW 15.0 Plt Count 188 MPV 9.0 Sodium 142 Potassium 4.4 Chloride 107 Carbon Dioxide 29 Anion Gap 6 L BUN 26 H Creatinine 0.8 Creat Clearance w eGFR 75.03 Random Glucose 72 L Calcium 9.1 Total Bilirubin 0.2 AST 73 H ALT 85 H Alkaline Phosphatase 114 Total Protein 8.3 H Albumin 3.6 RPR Titer Nonreactive Labs reviewed: bun 26 Assessment: 11/09/18 15:51 Withdrawal symptoms Noted with azotemia and elevated b/p Plan: Continue detox Azotemia: encouraged PO water intake Elevated b/p without dx of htn: clonidine 0.1mg PO q8hr prn if b/p > 140/90
[2018-11-09] MEDS: METHOCARBAMOL 500 MG TABLET PO PRN (20:08)
[2018-11-09] MEDS: IBUPROFEN 400 MG TABLET (FP) PO PRN (20:08)
[2018-11-09] MEDS: THIAMINE HCL 100 MG TABLET (FP) PO SCH (22:24)
[2018-11-09] MEDS: traZODone HCL 50 MG TABLET (FP) PO SCH (22:25)
[2018-11-10] MEDS: IBUPROFEN 400 MG TABLET (FP) PO PRN (05:57)
[2018-11-10] MEDS ORDERED: METHADONE HCL 5 MG TABLET (FOR DETOX USE ONLY) PO ONE (06:00)
[2018-11-10 09:45] VITALS: BP 128/70; PULSE 68; TEMP 98.4
[2018-11-10] MEDS: CHLORHEXIDINE GLUCONATE 0.12% 15ML CUP MM SCH (10:10)
[2018-11-10] MEDS: PRENATAL VITAMINS W/ FOLIC ACID TABLET (FP) PO SCH (10:10)
[2018-11-10] MEDS: NICOTINE 14 MG/24 HOURS TOPICAL PATCH TD SCH (10:11)
--- NOTE | 2018-11-10 16:07 | DS ---
[facility] Detox Discharge Summary Admission Date: 11/06/18 Discharge Date: 11/10/18 - History Present History: Cocaine Dependence, Opioid Dependence Additional Comments: PATIENT SCHEDULED FOR DISCHARGE FROM DETOX UNIT TO DAY. PATIENT GOING TO [facility] ([place] [place]) FOR AFTERCARE. PATIENT WAS DISCHARGED FROM DETOX UNIT TO BE TAKEN OVER TO REHAB UNIT IN STABLE MEDICAL CONDITION. Pertinent Past History: H.I.V., History of Schizophrenia, Nicotine Dependence, Weight Loss, Dry Skin, History of Back Pain, Sore Throat. - Physical Exam Results Vital Signs: Vital Signs Temperature 98.4 F 11/10/18 09:45 Pulse Rate 68 11/10/18 09:45 Respiratory Rate 16 11/10/18 09:45 Blood Pressure 128/70 11/10/18 09:45 O2 Sat by Pulse Oximetry (%) Pertinent Admission Physical Exam Findings: WITHDRAWAL SYMPTOMS. Laboratory Tests 11/07/18 11/07/18 11/07/18 07:00 07:00 07:00 WBC 2.8 L RBC 3.65 Hgb 11.8 Hct 34.7 MCV 95.0 MCH 32.4 MCHC 34.1 RDW 15.0 Plt Count 188 MPV 9.0 Sodium 142 Potassium 4.4 Chloride 107 Carbon Dioxide 29 Anion Gap 6 L BUN 26 H Creatinine 0.8 Creat Clearance w eGFR 75.03 Random Glucose 72 L Calcium 9.1 Total Bilirubin 0.2 AST 73 H ALT 85 H Alkaline Phosphatase 114 Total Protein 8.3 H Albumin 3.6 RPR Titer Nonreactive LABS NOTED. - Treatment Hospital Course: Detox Protocol Followed, Detoxed Safely, Responded well, Discharged Condition Good, Rehab Referral Accepted Patient has Accepted a Rehab Referral to: [facility] ([place], [place]). - Medication Discharge Medications: Ambulatory Orders NK [No Known Home Medication] 07/12/18 - Diagnosis (1) Dry skin Status: Acute (2) Opioid dependence with withdrawal Status: Acute (3) Sore throat Status: Acute (4) Weight loss Status: Acute (5) Back pain Status: Chronic Qualifiers: Back pain location: low back pain Chronicity: unspecified Back pain laterality: unspecified Sciatica presence: unspecified whether sciatica present Qualified Code(s): M54.5 - Low back pain (6) Cocaine dependence Status: Chronic Qualifiers: Substance use status: in withdrawal Qualified Code(s): F14.23 - Cocaine dependence with withdrawal (7) HIV (human immunodeficiency virus infection) Status: Chronic Qualifiers: HIV symptom status: unspecified Qualified Code(s): B20 - Human immunodeficiency virus [HIV] disease (8) Nicotine dependence Status: Chronic Qualifiers: Nicotine product type: cigarettes Substance use status: uncomplicated Qualified Code(s): F17.210 - Nicotine dependence, cigarettes, uncomplicated (9) Substance-induced sleep disorder Status: Acute - AMA Did Patient Leave Against Medical Advice: No
== END 2018-11-10 13:21 | disposition other institution (70) | DRG 773 ==
LOC: YASAS 16:10 → Y6N 20:20
PROVIDERS: ADMIT Surgery; ATTEND Surgery
PROC: HZ2ZZZZ Detoxification Services for Substance Abuse Treatment (ICD-10-PCS; principal; 2018-11-06)
DX: F11.23 Opioid dependence with withdrawal (principal); F14.20 Cocaine dependence, uncomplicated; F17.213 Nicotine dependence, cigarettes, with withdrawal; F20.9 Schizophrenia, unspecified; F19.282 Other psychoactive substance dependence with psychoactive substance-induced sleep disorder; Z21 Asymptomatic human immunodeficiency virus [HIV] infection status; L85.3 Xerosis cutis; M54.5 Low back pain; J02.9 Acute pharyngitis, unspecified; R51 Headache; R63.4 Abnormal weight loss; Z68.21 Body mass index [BMI] 21.0-21.9, adult
CPT/HCPCS: 36415; 80053; 85027; 86593

== ENCOUNTER 2018-11-10 13:43 | Inpatient (IN) | payer OTHER ==
[2018-11-10] MEDS ORDERED: ACETAMINOPHEN 325 MG TABLET (FP) PO PRN (16:12)
[2018-11-10] MEDS ORDERED: MAG HYDROX/AL HYDROX/SIMETH 30 ML UNIT-DOSE CUP PO PRN (16:12)
[2018-11-10] MEDS ORDERED: MAGNESIUM CITRATE 300 ML BOTTLE PO PRN (16:12)
[2018-11-10] MEDS ORDERED: MAGNESIUM HYDROX 2400MG/30ML ORAL SUSPENSION 30 ML CUP PO PRN (16:12)
[2018-11-10] MEDS ORDERED: P-EPHED 60MG/TRIPROLIDI 2.5MG TABLET PO PRN (16:12)
[2018-11-10] MEDS ORDERED: LOPERAMIDE HCL 2 MG CAPSULE PO PRN (16:12)
[2018-11-10] MEDS ORDERED: guaiFENesin 200 MG/10 ML 10 ML UNIT-DOSE CUPS PO PRN (16:12)
--- NOTE | 2018-11-10 16:14 | HP ---
[facility] Rehab Assess/Revision - Admission History Admitted to Rehab from: [facility] Date of Admission to Rehab: 11/10/2018 - Vital signs Vital Signs: NOTED; STABLE. - Findings Detox History & Physical reviewed: Yes Concur with findings: Yes Comments/Additional Findings: PATIENT'S MEDICAL / MEDICATION HISTORY REVIEWED PRIOR TO DISCHARGE FROM DETOX UNIT. PATIENT WAS DISCHARGED FROM DETOX UNIT TO BE TAKEN OVER TO REHAB UNIT IN STABLE MEDICAL CONDITION. Inpatient Rehab Admission - Rehab Decision to Admit Inpatient rehab admission?: Yes - Initial Determination Are CD services needed?: Yes Free of communicable disease: Yes Not in need of hospitalization: Yes - Rehab Admission Criteria Previous failed treatment: Yes Poor recovery environment: Yes Comorbidities: Yes Lacks judgement: No Patient is meeting Inpatient Rehab admission criteria:: Yes
[2018-11-10] MEDS: IBUPROFEN 400 MG TABLET (FP) PO PRN (16:57)
[2018-11-10] MEDS: MENTHOL/PHENOL 1 EACH UD MM PRN (16:58)
[2018-11-10] MEDS ORDERED: NICOTINE POLACRILEX 2 MG GUM BUC PRN (21:03)
[2018-11-10] MEDS: THIAMINE HCL 100 MG TABLET (FP) PO SCH (21:45)
[2018-11-10] MEDS: MELATONIN 5 MG TABLETS PO PRN (21:45)
[2018-11-10] MEDS: traZODone HCL 50 MG TABLET (FP) PO SCH (21:45)
[2018-11-10] MEDS: CHLORHEXIDINE GLUCONATE 0.12% 15ML CUP MM SCH (21:46)
[2018-11-11] MEDS: MENTHOL/PHENOL 1 EACH UD MM PRN ×2 (06:22→16:01)
[2018-11-11] MEDS: NICOTINE 14 MG/24 HOURS TOPICAL PATCH TD SCH (10:10)
[2018-11-11] MEDS: PRENATAL VITAMINS W/ FOLIC ACID TABLET (FP) PO SCH (10:10)
[2018-11-11] MEDS: IBUPROFEN 400 MG TABLET (FP) PO PRN (10:11)
[2018-11-11] MEDS: CHLORHEXIDINE GLUCONATE 0.12% 15ML CUP MM SCH ×2 (10:12→21:32)
--- NOTE | 2018-11-11 12:30 | PN ---
S Progress Note (SOAP) Subjective: patient c/o sore throat, painhful swallowing, difficulty eating, swollen neck, gargle has not helped,voice is hoarse Objective: some exudates on tonsils, lymph nodes swollen in neck 11/11/18 12:25 Assessment: throat infection 11/11/18 12:28 Plan: amoxicillin given
--- NOTE | 2018-11-11 19:30 | PN ---
[facility] Progress Note (SOAP) Subjective: Pt complaining of constipation for the last 3 days- no BM. Says Maalox does not work for her. d/w pt to try mag citrate
[2018-11-11] MEDS: traZODone HCL 50 MG TABLET (FP) PO SCH (21:31)
[2018-11-11] MEDS: THIAMINE HCL 100 MG TABLET (FP) PO SCH (21:31)
[2018-11-11] MEDS: AMOXICILLIN 500 MG CAPSULE (FP) PO SCH (21:32)
[2018-11-11] MEDS: MELATONIN 5 MG TABLETS PO PRN (21:32)
[2018-11-11] MEDS ORDERED: AMOXICILLIN ORAL SUSPENSION - 250 MG/5 ML PO SCH (22:00)
[2018-11-12] MEDS: IBUPROFEN 400 MG TABLET (FP) PO PRN ×2 (06:17→15:08)
[2018-11-12] MEDS ORDERED: cloNIDine HCL 0.1 MG TABLET PO ONE (06:24)
--- NOTE | 2018-11-12 06:27 | PN ---
S Progress Note Note: Patient's blood pressure is B/P 183/112. Patient is asymptomatic Vital Signs Temperature 100.4 F H 11/12/18 06:29 Pulse Rate 75 11/12/18 06:29 Respiratory Rate 18 11/12/18 06:29 Blood Pressure 183/112 H 11/12/18 06:29 O2 Sat by Pulse Oximetry (%) Action: Clonidine 0.1mg tablet oral ordered
[2018-11-12] MEDS: CHLORHEXIDINE GLUCONATE 0.12% 15ML CUP MM SCH ×2 (10:38→21:57)
[2018-11-12] MEDS: AMOXICILLIN 500 MG CAPSULE (FP) PO SCH (10:38)
[2018-11-12] MEDS: PRENATAL VITAMINS W/ FOLIC ACID TABLET (FP) PO SCH (10:38)
[2018-11-12] MEDS: NICOTINE 14 MG/24 HOURS TOPICAL PATCH TD SCH (10:38)
--- NOTE | 2018-11-12 10:43 | PN ---
[facility] Progress Note (SOAP) Subjective: Patient with fever and hypertensive this AM. Seen yesterday for sore throat and started on Amoxicillin. Objective: 11/12/18 10:39 Vital Signs - 24 hr 11/12/18 11/12/18 11/12/18 00:30 03:30 06:29 Temperature 100.4 F H Pulse Rate 75 Respiratory 20 18 18 Rate Blood Pressure 183/112 H 11/12/18 11/12/18 11/12/18 06:57 08:01 10:11 Temperature 100.4 F H 99.1 F 98.1 F Pulse Rate 75 67 Respiratory 18 18 Rate Blood Pressure 183/112 H 145/100 119/75 11/12/18 10:39 Patient found resting in bed, lethargic. Skin warn, moist, Lungs clear, heart rate audible, S1 S2 Regular, neck lymph nodes tender. 11/12/18 10:42 Assessment: 11/12/18 10:41 Fever Plan: Continue Amoxicillin, temperature/BP every 4 hours during this shift, Continue to monitor.
[2018-11-12] MEDS ORDERED: PT OWN MED DRAWER 7, Y5N ONE (11:11)
[2018-11-12] MEDS: MENTHOL/PHENOL 1 EACH UD MM PRN ×2 (15:08→21:58)
--- NOTE | 2018-11-12 20:03 | PN ---
S Progress Note Note: Pt with HIV. Last Cd4> 400 according to pt and had undetectable VL. But pt has not taken ARV meds for several months. Pt with sore throat- empirically put on amoxacillin- pt states not getting better- consider esophageal candidiasis if still with difficultly swallowing. Pt with fever 101.3 and R thumb pain- O: Vital Signs - 24 hr 11/12/18 11/12/18 11/12/18 00:30 03:30 06:29 Temperature 100.4 F H Pulse Rate 75 Respiratory 20 18 18 Rate Blood Pressure 183/112 H 11/12/18 11/12/18 11/12/18 06:57 08:01 10:11 Temperature 100.4 F H 99.1 F 98.1 F Pulse Rate 75 67 Respiratory 18 18 Rate Blood Pressure 183/112 H 145/100 119/75 11/12/18 16:12 Temperature 101.3 F H Pulse Rate 83 Respiratory 18 Rate Blood Pressure 163/106 H fever 101 BP high a/p: R thumb paronychia- will give bactrim and pt to put warm soaks tonight. If not better may need to have I and D of thumb. d/w pt and nurse
[2018-11-12] MEDS: SULFAMETHOXAZOLE/TRIMETHOPRIM 800MG/160MG D.S. TABLET PO SCH (21:56)
[2018-11-12] MEDS: THIAMINE HCL 100 MG TABLET (FP) PO SCH (21:56)
[2018-11-12] MEDS: traZODone HCL 50 MG TABLET (FP) PO SCH (21:56)
[2018-11-12] MEDS: MELATONIN 5 MG TABLETS PO PRN (21:57)
[2018-11-13] MEDS: IBUPROFEN 400 MG TABLET (FP) PO PRN ×2 (06:42→23:07)
[2018-11-13] MEDS ORDERED: PT OWN MED DRAWER 7, Y5N ONE (08:32)
[2018-11-13] MEDS: SULFAMETHOXAZOLE/TRIMETHOPRIM 800MG/160MG D.S. TABLET PO SCH ×2 (09:22→22:07)
[2018-11-13] MEDS: PRENATAL VITAMINS W/ FOLIC ACID TABLET (FP) PO SCH (09:23)
[2018-11-13] MEDS: CHLORHEXIDINE GLUCONATE 0.12% 15ML CUP MM SCH (09:23)
[2018-11-13] MEDS: NICOTINE 14 MG/24 HOURS TOPICAL PATCH TD SCH (09:23)
--- NOTE | 2018-11-13 11:02 | PN ---
[facility] Progress Note (SOAP) Subjective: Client continues with fever. Dry cough. Objective: Continues with fevers, in bed 11/13/18 11:00 Vital Signs - 24 hr 11/12/18 11/12/18 11/12/18 14:50 16:12 20:57 Temperature 100.3 F H 101.3 F H 101.2 F H Pulse Rate 83 78 Respiratory 18 18 Rate Blood Pressure 163/106 H 159/104 H 11/12/18 11/12/18 11/13/18 22:34 23:23 00:30 Temperature 101.2 F H 100.4 F H Pulse Rate 78 78 Respiratory 18 18 18 Rate Blood Pressure 159/104 H 152/94 11/13/18 11/13/18 11/13/18 03:30 07:06 07:55 Temperature 101.3 F H 99.4 F Pulse Rate 104 H Respiratory 18 20 Rate Blood Pressure 131/92 11/13/18 10:27 Temperature 99.0 F Pulse Rate Respiratory Rate Blood Pressure 11/13/18 11:00 Assessment: Fevers of unknown origin, possibly PJP (PCP) 11/13/18 11: Plan: Continue Bactrim, CXR tomorrow.
[2018-11-13] MEDS: MELATONIN 5 MG TABLETS PO PRN (22:07)
[2018-11-13] MEDS: traZODone HCL 50 MG TABLET (FP) PO SCH (22:07)
[2018-11-13] MEDS: MENTHOL/PHENOL 1 EACH UD MM PRN (22:07)
[2018-11-13] MEDS: THIAMINE HCL 100 MG TABLET (FP) PO SCH (22:07)
[2018-11-14] MEDS: PRENATAL VITAMINS W/ FOLIC ACID TABLET (FP) PO SCH (10:04)
[2018-11-14] MEDS: SULFAMETHOXAZOLE/TRIMETHOPRIM 800MG/160MG D.S. TABLET PO SCH ×2 (10:04→22:21)
[2018-11-14] MEDS: NICOTINE 14 MG/24 HOURS TOPICAL PATCH TD SCH (10:05)
[2018-11-14] MEDS: IBUPROFEN 400 MG TABLET (FP) PO PRN (11:19)
[2018-11-14] MEDS: THIAMINE HCL 100 MG TABLET (FP) PO SCH (22:21)
[2018-11-14] MEDS: MELATONIN 5 MG TABLETS PO PRN (22:21)
[2018-11-14] MEDS: traZODone HCL 50 MG TABLET (FP) PO SCH (22:21)
[2018-11-15] MEDS: PRENATAL VITAMINS W/ FOLIC ACID TABLET (FP) PO SCH (10:44)
[2018-11-15] MEDS: SULFAMETHOXAZOLE/TRIMETHOPRIM 800MG/160MG D.S. TABLET PO SCH ×2 (10:44→22:10)
[2018-11-15] MEDS: NICOTINE 14 MG/24 HOURS TOPICAL PATCH TD SCH (10:44)
[2018-11-15] MEDS: MENTHOL/PHENOL 1 EACH UD MM PRN (15:32)
[2018-11-15] MEDS: traZODone HCL 50 MG TABLET (FP) PO SCH (22:10)
[2018-11-15] MEDS: MELATONIN 5 MG TABLETS PO PRN (22:10)
[2018-11-15] MEDS: THIAMINE HCL 100 MG TABLET (FP) PO SCH (22:10)
[2018-11-16] MEDS: NICOTINE 14 MG/24 HOURS TOPICAL PATCH TD SCH (09:59)
[2018-11-16] MEDS: SULFAMETHOXAZOLE/TRIMETHOPRIM 800MG/160MG D.S. TABLET PO SCH ×2 (09:59→22:00)
[2018-11-16] MEDS: PRENATAL VITAMINS W/ FOLIC ACID TABLET (FP) PO SCH (09:59)
[2018-11-16] MEDS: MELATONIN 5 MG TABLETS PO PRN (21:58)
[2018-11-16] MEDS: traZODone HCL 50 MG TABLET (FP) PO SCH (21:58)
[2018-11-16] MEDS: THIAMINE HCL 100 MG TABLET (FP) PO SCH (21:58)
--- NOTE | 2018-11-17 09:48 | PN ---
[facility] Progress Note Note: CXR RESULTS APPRECIATED. NEGATIVE FOR ACUTE INFECTION/PNA. BACTRIM CONTINUED AND PATIENT REMAINS AFEBRILE. CONTINUE TO MONITOR CLINICALLY. Vital Signs Temperature 98.2 F 11/16/18 06:55 Pulse Rate 84 11/16/18 06:55 Respiratory Rate 16 11/17/18 00:30 Blood Pressure 105/71 11/16/18 06:55 O2 Sat by Pulse Oximetry (%)
[2018-11-17] MEDS: SULFAMETHOXAZOLE/TRIMETHOPRIM 800MG/160MG D.S. TABLET PO SCH ×2 (10:11→21:59)
[2018-11-17] MEDS: NICOTINE 14 MG/24 HOURS TOPICAL PATCH TD SCH (10:11)
[2018-11-17] MEDS: PRENATAL VITAMINS W/ FOLIC ACID TABLET (FP) PO SCH (10:12)
[2018-11-17] MEDS: CHLORHEXIDINE GLUCONATE 0.12% 15ML CUP MM SCH ×2 (11:06→22:00)
--- NOTE | 2018-11-17 12:34 | PN ---
[facility] Progress Note Note: PATIENT SEEN FOR C/O SORE THROAT AND REQUEST TO START SUBOXONE MAT FOR OPIOD DEPENDENCE. PATIENT WAS TREATED FOR FEVER LAST WEEK WITH BACTRIM AND HAD CXR COMPLETED. RESULTS NEGATIVE FOR ACUTE INFECTION. PATIENT ALSO C/O OPIOD CRAVINGS AND HAS HX OF OPIOD DEPENDENCE( 10 BAGS DAILY) AND HIV. PATIENT IS NONCOMPLIANT WITH HIV MEDICATION. NO FEVERS REPORTED IN LAST 24 HOURS. AND HIV. PATIENT IS NONCOMPLIANT WITH HIV MEDICATION. NO FEVERS REPORTED IN LAST 24 HOURS. Vital Signs Temperature 98.2 F 11/16/18 06:55 Pulse Rate 84 11/16/18 06:55 Respiratory Rate 16 11/17/18 00:30 Blood Pressure 105/71 11/16/18 06:55 O2 Sat by Pulse Oximetry (%) PE: ALERT AND ORIENTED X 3 SKIN WARM AND DRY ENT NO NASAL DISCHARGE, PHARYNX PINK, SMALL PINPOINT WHITE SUBSTANCE NOTED AT LEFT TONSILAR AREA, NO REDNESS NOTED NECK SUPPLE, NO JVD CAR S1S2 RESP CTA BL EXT FULL ROM, AMB AD SUBHASH, NO TREMORS A/P: PHARYNGITIS OPIOD DEPENDENCE WILL ORDER THROAT C/S RESUME PERIDEX MM CHECK URINE HCG/DRUG SCREEN PATIENT [facility] [place], [place] [phone] BY FAHAD COUNSELOR ISTOP REVIEWED AND NEGATIVE FOR ACTIVE NARCOTIC PRESCRIPTIONS ONCE URINE RESULTS AVAILABLE, START SUBOXONE.
[2018-11-17] MEDS: THIAMINE HCL 100 MG TABLET (FP) PO SCH (21:59)
[2018-11-17] MEDS: traZODone HCL 50 MG TABLET (FP) PO SCH (21:59)
[2018-11-17] MEDS: MELATONIN 5 MG TABLETS PO PRN (22:00)
--- NOTE | 2018-11-18 09:40 | PN ---
S Progress Note Note: Patient with urine toxicology positive for methadone; will repeat today. Discussed with patient. On trazadone.
[2018-11-18] MEDS: PRENATAL VITAMINS W/ FOLIC ACID TABLET (FP) PO SCH (09:54)
[2018-11-18] MEDS: CHLORHEXIDINE GLUCONATE 0.12% 15ML CUP MM SCH ×2 (09:54→22:52)
[2018-11-18] MEDS: NICOTINE 14 MG/24 HOURS TOPICAL PATCH TD SCH (09:54)
[2018-11-18] MEDS: SULFAMETHOXAZOLE/TRIMETHOPRIM 800MG/160MG D.S. TABLET PO SCH ×2 (09:54→22:51)
--- NOTE | 2018-11-18 09:56 | PN ---
S Progress Note (SOAP) Subjective: Client continuing to complain of throat pain on left side. States that peridex mouthwash helps for a few minutes after use. Reports no difficulty swallowing, but drinking juice darby. HIV positive, has not take medications in 3 months, reports that her CD4 count was 3; viral load unknown. Objective: PE: Vital Signs (72 hours) 11/16/18 11/16/18 11/16/18 00:30 03:30 06:55 Temperature 98.2 F Pulse Rate 84 Respiratory 18 18 18 Rate Blood Pressure 105/71 11/17/18 11/18/18 11/18/18 00:30 00:30 03:30 Temperature Pulse Rate Respiratory 16 18 18 Rate Blood Pressure 11/18/18 06:39 Temperature 98.3 F Pulse Rate 84 Respiratory 18 Rate Blood Pressure 103/78 PE: Afebrile, voice hoarse, small white area on left side of throat, skin dry, cool to touch, lungs clear, heart rate regular. CXR negative. Throat culture negative. 11/18/18 09:58 11/18/18 10:00 11/18/18 10:01 Assessment: Impression: Based on client history of HIV, it is possible that she may have thrush. 11/18/18 10:00 Plan: Will treat empirically for Thrush, Nystatin Swish and Swallow ordered.
[2018-11-18] MEDS ORDERED: PT OWN MED DRAWER 7, Y5N ONE (10:34)
[2018-11-18] MEDS: NYSTATIN 500,000 UNITS/5 ML SUSPENSION PO SCH ×4 (11:42→23:30)
[2018-11-18] MEDS: traZODone HCL 50 MG TABLET (FP) PO SCH (22:51)
[2018-11-18] MEDS: THIAMINE HCL 100 MG TABLET (FP) PO SCH (22:52)
[2018-11-19] MEDS: NYSTATIN 500,000 UNITS/5 ML SUSPENSION PO SCH ×2 (06:00→11:43)
--- NOTE | 2018-11-19 09:55 | PN ---
[facility] Progress Note (SOAP) Subjective: sore on inner lip under lower denture, reports it is painful.Pt has hx of herpes and HIV; presently being treated empirically for esophageal thrush. Objective: 11/19/18 09:52 Open area under denture, surrounded with raised red area. Assessment: 11/19/18 09:54 aphthous ulcer Plan: Patient already has Peridex mouthwash, which should help with discomfort of ulcer. Self-resolving
[2018-11-19] MEDS: SULFAMETHOXAZOLE/TRIMETHOPRIM 800MG/160MG D.S. TABLET PO SCH ×2 (10:05→21:54)
[2018-11-19] MEDS: NICOTINE 14 MG/24 HOURS TOPICAL PATCH TD SCH (10:05)
[2018-11-19] MEDS: CHLORHEXIDINE GLUCONATE 0.12% 15ML CUP MM SCH ×2 (10:05→21:55)
[2018-11-19] MEDS: PRENATAL VITAMINS W/ FOLIC ACID TABLET (FP) PO SCH (10:05)
[2018-11-19] MEDS: hydrOXYzine PAMOATE 50 MG CAPSULE (FP) PO PRN (10:07)
[2018-11-19] MEDS: BENZOCAINE 20 % GEL TUBE MM PRN (16:50)
[2018-11-19] MEDS: THIAMINE HCL 100 MG TABLET (FP) PO SCH (21:54)
[2018-11-19] MEDS: MELATONIN 5 MG TABLETS PO PRN (21:54)
[2018-11-19] MEDS: traZODone HCL 50 MG TABLET (FP) PO SCH (21:54)
[2018-11-20] MEDS: NYSTATIN 500,000 UNITS/5 ML SUSPENSION PO SCH ×4 (01:15→17:00)
[2018-11-20] MEDS: SULFAMETHOXAZOLE/TRIMETHOPRIM 800MG/160MG D.S. TABLET PO SCH ×2 (09:51→21:16)
[2018-11-20] MEDS: CHLORHEXIDINE GLUCONATE 0.12% 15ML CUP MM SCH ×2 (09:52→21:17)
[2018-11-20] MEDS: PRENATAL VITAMINS W/ FOLIC ACID TABLET (FP) PO SCH (09:52)
[2018-11-20] MEDS: NICOTINE 14 MG/24 HOURS TOPICAL PATCH TD SCH (09:53)
[2018-11-20] MEDS: THIAMINE HCL 100 MG TABLET (FP) PO SCH (21:16)
[2018-11-20] MEDS: traZODone HCL 50 MG TABLET (FP) PO SCH (21:16)
[2018-11-20] MEDS: MELATONIN 5 MG TABLETS PO PRN (21:17)
[2018-11-20] MEDS: BENZOCAINE 20 % GEL TUBE MM PRN (21:17)
[2018-11-21] MEDS: NYSTATIN 500,000 UNITS/5 ML SUSPENSION PO SCH ×4 (00:20→17:16)
[2018-11-21] MEDS: SULFAMETHOXAZOLE/TRIMETHOPRIM 800MG/160MG D.S. TABLET PO SCH ×2 (09:55→21:50)
[2018-11-21] MEDS: NICOTINE 14 MG/24 HOURS TOPICAL PATCH TD SCH (09:56)
[2018-11-21] MEDS: CHLORHEXIDINE GLUCONATE 0.12% 15ML CUP MM SCH ×2 (09:56→21:51)
[2018-11-21] MEDS: PRENATAL VITAMINS W/ FOLIC ACID TABLET (FP) PO SCH (09:56)
--- NOTE | 2018-11-21 13:33 | PN ---
[facility] COWS - Scale Resting Pulse: 0= IN 80 or Below Sweatin= Chills/Flushing Restless Observation: 1= Difficult to Sit Still Pupil Size: 2= Moderately Dilated Bone or Joint Aches: 1= Mild Discomfort Runny Nose/ Eye Tearin= None GI Upset > 30mins: 2= Nausea/Diarrhea Tremor Observation of Outstretched Hands: 0= None Yawning Observation: 0= None Anxiety or Irritability: 2=Irritable/Anxious Goose Flesh Skin: 0=Smooth Skin COWS Score: 9 [facility] Progress Note (SOAP) Subjective: PATIENT SEEN TO INITIATE SUBOXONE MAT. PATIENT HAS HX OF OPIOD DISORDER AND DETOXED OFF HEROIN HERE AT [facility] BEFORE BEING ADMITTED TO REHAB. PATIENT HAS HX OF SUBOXONE TREATMENT IN PAST AND CURRENTLY CONNECTED TO [facility] IN [place], [place]. FOR AFTERCARE. URINE DRUG SCREEN COMPLETED TODAY AND NEGATIVE FOR ALL CONTROLLED SUBSTANCES INCLUDING METHADONE. Vital Signs Temperature 98.5 F 11/21/18 06:55 Pulse Rate 90 11/21/18 06:55 Respiratory Rate 18 11/21/18 06:55 Blood Pressure 112/81 11/21/18 06:55 O2 Sat by Pulse Oximetry (%) PE: ALERT AND ORIENTED X 3 SKIN WARM AND DRY, + CHILLS CAR S1S2 RESP CTA BL EXT NO VISIBLE TREMORS AMB AD SUBHASH +ANXIETY AND MILDLY RESTLESS A/P: WITHDRAWAL SX OPIOD USE DISORDER SUBOXONE MAT WILL START SUBOXONE 2MG BID TODAY THEN INCREASE TO 8MG DAILY STARTING TOMORROW CONTINUE TO MONITOR CLINICALLY
[2018-11-21] MEDS: BENZOCAINE 20 % GEL TUBE MM PRN (13:39)
[2018-11-21] MEDS ORDERED: BUPRENORPHINE/NALOXONE 2 MG/0.5 MG FILM PACKET SL ONE ×2 (13:45→22:00)
[2018-11-21] MEDS: THIAMINE HCL 100 MG TABLET (FP) PO SCH (21:49)
[2018-11-21] MEDS: MELATONIN 5 MG TABLETS PO PRN (21:50)
[2018-11-21] MEDS: traZODone HCL 50 MG TABLET (FP) PO SCH (21:50)
[2018-11-22] MEDS: NYSTATIN 500,000 UNITS/5 ML SUSPENSION PO SCH ×5 (00:08→23:57)
[2018-11-22] MEDS: hydrOXYzine PAMOATE 50 MG CAPSULE (FP) PO PRN (02:49)
[2018-11-22] MEDS: BENZOCAINE 20 % GEL TUBE MM PRN (09:05)
[2018-11-22] MEDS: CHLORHEXIDINE GLUCONATE 0.12% 15ML CUP MM SCH ×2 (10:07→21:00)
[2018-11-22] MEDS: SULFAMETHOXAZOLE/TRIMETHOPRIM 800MG/160MG D.S. TABLET PO SCH ×2 (10:07→21:00)
[2018-11-22] MEDS: BUPRENORPHINE/NALOXONE 8 MG/2 MG FILM PACKET SL SCH (10:07)
[2018-11-22] MEDS: PRENATAL VITAMINS W/ FOLIC ACID TABLET (FP) PO SCH (10:07)
[2018-11-22] MEDS: NICOTINE 14 MG/24 HOURS TOPICAL PATCH TD SCH (10:08)
[2018-11-22] MEDS: THIAMINE HCL 100 MG TABLET (FP) PO SCH (21:00)
[2018-11-22] MEDS: MELATONIN 5 MG TABLETS PO PRN (21:00)
[2018-11-22] MEDS: traZODone HCL 50 MG TABLET (FP) PO SCH (21:00)
[2018-11-23] MEDS ORDERED: PT OWN MED DRAWER 7, Y5N ONE (00:45)
[2018-11-23] MEDS: NYSTATIN 500,000 UNITS/5 ML SUSPENSION PO SCH ×4 (06:19→23:43)
[2018-11-23] MEDS: NICOTINE 14 MG/24 HOURS TOPICAL PATCH TD SCH (09:56)
[2018-11-23] MEDS: PRENATAL VITAMINS W/ FOLIC ACID TABLET (FP) PO SCH (09:56)
[2018-11-23] MEDS: SULFAMETHOXAZOLE/TRIMETHOPRIM 800MG/160MG D.S. TABLET PO SCH ×2 (09:56→23:40)
[2018-11-23] MEDS: BUPRENORPHINE/NALOXONE 8 MG/2 MG FILM PACKET SL SCH (09:56)
[2018-11-23] MEDS: CHLORHEXIDINE GLUCONATE 0.12% 15ML CUP MM SCH ×2 (09:57→23:40)
[2018-11-23] MEDS: IBUPROFEN 400 MG TABLET (FP) PO PRN (17:58)
--- NOTE | 2018-11-23 18:39 | PN ---
S Progress Note (SOAP) Subjective: c/o sore throat x several days. Throat is getting worse. C/o chills. [place] SOB. Denies ear pain. Objective: A&O x3. Lungs CTA. No nasal congestion/discharge. Throat w/ diffuse white patches. Slight increased erythema posterior pharynx. Vital Signs - 24 hr 11/23/18 11/23/18 11/23/18 00:30 03:30 06:56 Temperature 101.9 F H Pulse Rate 100 H Respiratory 18 18 18 Rate Blood Pressure 111/67 11/23/18 17:55 Temperature 103.2 F H Pulse Rate Respiratory Rate Blood Pressure Microbiology 11/17/18 12:10 Throat Throat Culture - Final NO BETA HEMOLYTIC STREPTOCOCCI ISOLATED Assessment: Oral candidacies. HIV(+) Possible URI Suboxone Maintenance Plan: Encourage increased fluids. Continue nystatin swish and swallow Ibuprofen 400 mg PO Q6H x 3 doses, then prn Monitor temperature Q4H Zithromax 1000 mg once. Valtrex 1000 mg once
[2018-11-23] MEDS ORDERED: AZITHROMYCIN 250 MG TABLET PO ONE (18:42)
[2018-11-23] MEDS ORDERED: valACYclovir HCL 500 MG TABLET (FP) PO ONE (23:00)
[2018-11-23] MEDS: THIAMINE HCL 100 MG TABLET (FP) PO SCH (23:40)
[2018-11-23] MEDS: traZODone HCL 50 MG TABLET (FP) PO SCH (23:40)
[2018-11-24] MEDS ORDERED: diphenhydrAMINE HCL 25 MG CAPSULE (FP) PO ONE (04:30)
[2018-11-24] MEDS: IBUPROFEN 400 MG TABLET (FP) PO PRN (05:54)
[2018-11-24] MEDS: NYSTATIN 500,000 UNITS/5 ML SUSPENSION PO SCH (05:54)
[2018-11-24] MEDS: BENZOCAINE 20 % GEL TUBE MM PRN (05:55)
[2018-11-24 06:54] VITALS: BP 112/56; PULSE 95
[2018-11-24 08:02] VITALS: TEMP 99
[2018-11-24] MEDS: SULFAMETHOXAZOLE/TRIMETHOPRIM 800MG/160MG D.S. TABLET PO SCH (09:41)
[2018-11-24] MEDS: PRENATAL VITAMINS W/ FOLIC ACID TABLET (FP) PO SCH (09:41)
[2018-11-24] MEDS: BUPRENORPHINE/NALOXONE 8 MG/2 MG FILM PACKET SL SCH (09:41)
[2018-11-24] MEDS: NICOTINE 14 MG/24 HOURS TOPICAL PATCH TD SCH (09:41)
[2018-11-24] MEDS: CHLORHEXIDINE GLUCONATE 0.12% 15ML CUP MM SCH (09:42)
[2018-11-24] MEDS ORDERED: PT OWN MED DRAWER 7, Y5N ONE (09:44)
--- NOTE | 2018-11-24 12:44 | PN ---
[facility] Progress Note Note: REHAB DISCHARGE NOTE: PATIENT COMPLETED REHAB TODAY AND REPORTS ACCOMPLISHING ALL REHAB GOALS. ALTHOUGH PATIENT HAD FEVER YESTERDAY WHICH WAS TREATED WITH AZITHROMYCIN AND STARTED ON [place] S/S, PATIENT IS MEDICALLY STABLE AND DENIES SI/HI. PATIENT ALSO HAD THROAT C/S AND CXR DONE WHICH WERE BOTH NEGATIVE. FEVER LIKELY RELATED TO HIV STATUS AND NONCOMPLIANCE WITH TREATMENT. PATIENT RECOMMENDED TO STAY IN REHAB FOR OBSERVATION BUT REQUESTED TO BE D/C HOME DUE TO DAY. PATIENT HAS APPT WITH [facility] TO CONTINUE MAT AND MEDICAL FOLLOW UP. PATIENT ENCOURAGED TO ATTEND GROUP MEETINGS AND OUTPATIEN TREATMENT PREVENT RELAPSE. Vital Signs Temperature 99 F 11/24/18 08:01 Pulse Rate 95 H 11/24/18 06:53 Respiratory Rate 18 11/24/18 06:53 Blood Pressure 112/56 L 11/24/18 06:53 O2 Sat by Pulse Oximetry (%) PE: ALERT AND ORIENTED X 3 SKIN WARM AND DRY CAR S1S2 RESP CTA BL EXT FULL ROM, NO EDEMA Home Medications Medication Instructions Recorded Buprenorphine/Naloxone [Suboxone 1 each SL DAILY #7 packet MDD 11/24/18 8Mg/2Mg Sl Film -] 8mg/2mg Naloxone HCl [Narcan] 4 mg NS PRN PRN #1 kit 11/24/18 Nystatin Oral Suspension - 500,000 units PO Q6H #240 ml 11/24/18 [Nystatin Oral Susp 097250 Units/5 ML -]
== END 2018-11-24 09:50 | disposition home or self-care (01) | DRG 772 ==
LOC: YASAS 13:43 → Y3W 13:44
PROVIDERS: ADMIT Neuromusculoskeletal Medicine & OMM; ATTEND Neuromusculoskeletal Medicine & OMM
PROC: HZ42ZZZ Group Counseling for Substance Abuse Treatment, Cognitive-Behavioral (ICD-10-PCS; principal; 2018-11-10)
DX: F10.20 Alcohol dependence, uncomplicated (principal); F14.20 Cocaine dependence, uncomplicated; F17.210 Nicotine dependence, cigarettes, uncomplicated; B20 Human immunodeficiency virus [HIV] disease; B37.0 Candidal stomatitis; B37.81 Candidal esophagitis; J06.9 Acute upper respiratory infection, unspecified; J02.9 Acute pharyngitis, unspecified; R50.9 Fever, unspecified; L03.011 Cellulitis of right finger; Z91.5 Personal history of self-harm
CPT/HCPCS: 71046-TC-FY; 87070; J0735

== ENCOUNTER 2019-09-23 15:44 | Emergency (ER) | payer OTHER ==
[2019-09-23 16:13] VITALS: TEMP 98.4; BMI 24.1
--- NOTE | 2019-09-23 16:51 | PDOC ---
Documentation entered by Arlene Nova SCRIBE, acting as scribe for Leon Corrigan MD. Leon Corrigan MD: This documentation has been prepared by the Rohini knox Xhesika, SCRIBE, under my direction and personally reviewed by me in its entirety. I confirm that the documentation accurately reflects all work, treatment, procedures, and medical decision making performed by me. Attending Attestation - Resident Resident Name: RustamsandyLiberty - ED Attending Attestation I have performed the following: I have examined & evaluated the patient, The case was reviewed & discussed with the resident, I agree w/resident's findings & plan, Exceptions are as noted - HPI HPI: 09/23/19 16:48 The patient is a 54 year old female with a significant PMH of HIV, heroin (nasal ) and crack/cocaine dependence who presents to the emergency department [facility] from [facility] for overdose. Per [facility] note the patient was seen to be vomiting during registration and unresponsive to verbal questioning. Pt was given intranasal narcan x 2 with improved level of consciousness prior to arrival to ED. Pt admits to using heroin and crack/cocaine (lasted used this morning). She has no complaints at this time and is requesting to return to detox. Last dose of narcan was given prior to pt's arrival to ED, at approx 3:30. Allergies: NKDA - Physicial Exam PE: 09/23/19 16:49 GENERAL: Awake, alert, and fully oriented, in no acute distress. HEAD: No signs of trauma EYES: PERRLA, EOMI, sclera anicteric, conjunctiva clear ENT: Auricles normal inspection, hearing grossly normal, nares patent, oropharynx clear without exudates. Moist mucosa NECK: Nontender, no stepoffs, Normal ROM, supple, no lymphadenopathy, JVD, or masses LUNGS: Breath sounds equal, clear to auscultation bilaterally. No wheezes, and no crackles HEART: Regular rate and rhythm, normal S1 and S2, no murmurs, rubs or gallops ABDOMEN: Soft, nontender, normoactive bowel sounds. No guarding, no rebound. No masses EXTREMITIES: Normal range of motion, no edema. No clubbing or cyanosis. No cords, erythema, or tenderness NEUROLOGICAL: Cranial nerves II through XII intact. 5/5 strength and sensation in all extremities, Normal speech, normal gait, normal cerebellar function SKIN: Warm, Dry, normal turgor, no rashes or lesions noted. - Medical Decision Making 09/23/19 16:52 54 F with likely heroin overdose, now awake and alert. Pt last received narcan over 1.5 hours ago and continues to protect her airway without significant signs of opiate overdose. Denies SI/HI/AVH. Clinically stable to return to detox. Pt is well appearing, with normal vitals. Clinically stable for DC at this time. I discussed the physical exam findings, ancillary test results and final diagnoses with the patient. I answered all of the patient's questions. The patient was satisfied with the care received and felt comfortable with the discharge plan and treatment plan. The patient agrees to follow up with the primary care physician within 24-72 hours.
--- NOTE | 2019-09-23 16:54 | PDOC ---
History of Present Illness - General Chief Complaint: Overdose Stated Complaint: OVERDOSE Time Seen by Provider: 09/23/19 16:37 - History of Present Illness Initial Comments: Sabrina Cottrell is a 54yo woman with a PMH of polysubstance abuse (heroin, crack cocaine) who presents from detox intake due to unresponsiveness. Per notes from detox, Ms Cottrell was unresponsive and apnic unless stimulated. She was given intranasal narcan x2 with marked improvement in her mental status and level of alertness. Currently, Ms Cottrell endorses using "a pinch" of heroin but is unable to say when; she states it was at 5:30pm today. She additionally endorses using crack cocaine, most recently this morning, and "has been up for 2 days." She reports being sleepy. Past History - Past Medical History Allergies/Adverse Reactions: Allergies Allergy/AdvReac Type Severity Reaction Status Date / Time No Known Allergies Allergy Verified 11/06/18 20:19 Home Medications: Ambulatory Orders Clindamycin [Cleocin -] 150 mg PO Q8H 7 Days #63 capsule 09/23/19 Anemia: No Asthma: No Cancer: No Cardiac Disorders: No CVA: No COPD: No CHF: No Dementia: No Diabetes: No GI Disorders: No Disorders: No HTN: No Hypercholesterolemia: No Kidney Stones: No Liver Disease: No Seizures: No Thyroid Disease: No - Surgical History Abdominal Surgery: No Appendectomy: No Cardiac Surgery: No Cholecystectomy: Yes (in 1988) Lung Surgery: No Neurologic Surgery: No Orthopedic Surgery: No - Reproductive History PID: No - Psycho Social/Smoking Cessation Hx Smoking History: Current every day smoker Have you smoked in the past 12 months: Yes Number of Cigarettes Smoked Daily: 5 Cigars Per Day: 0 Information on smoking cessation initiated: No 'Breaking Loose' booklet given: 11/06/18 Hx Alcohol Use: Yes Drug/Substance Use Hx: Yes Substance Use Type: Cocaine, Heroin Hx Substance Use Treatment: Yes Review of Systems - Review of Systems Comments:: Pt declines to answer questions *Physical Exam - Vital Signs Last Vital Signs Temp Pulse Resp BP Pulse Ox 98.4 F 77 20 144/85 100 09/23/19 16:07 09/23/19 16:07 09/23/19 16:07 09/23/19 16:07 09/23/19 16:11 - Physical Exam General: In no acute distress HEENT: Atraumatic, PERRL, EOMI, voice normal Cards: RRR Pulm: Comfortable on room air, normal RR rate, sats in high 90's while sleeping Ext: Atraumatic. No LE edema. ROM intact. Moves all extremities Neuro: Somnolent but easily arousable. Oriented x3, CN grossly intact, normal speech, motor/sensory grossly intact and symmetric Psych: Agitated, angry Medical Decision Making - Medical Decision Making 09/23/19 16:48 Sabrina Cottrell is a 54yo woman with a PMH of polysubstance abuse (heroin, crack cocaine) who presents from detox intake due to unresponsiveness, reportedly apnic unless stimulated. Her breathing and mental status normalized after being given narcan. She endorses taking "a pinch" of heroin today but is unsure what time. - Somnolent but easily arousable. Alert and oriented though - Vitals WNL, no respiratory compromise - Pt becoming agitated w/ questioning, states she needs to go back to detox. States that she does not need to answer questions, yelled at staff to leave her alone, and she can "do whatever I want to do" when asked to stop yelling at staff. - Awake, responsive, breathing normally one hour after receiving narcan. Will send back to detox for additional management. 09/23/19 17:18 - Pt now reporting painful, swollen LLE for one week. States she was seen at [facility] and was "supposed to get shots" for the pain/swelling - LLE noted to have swelling, TTP and fluctuance over anterior sullivan. No posterior calf pain w/ palpation or foot dorsiflexion. No swelling of posterior leg, ankle, or foot. No erythema appreciated though pt has dark skin, difficult to determine - Suspect possible superficial abscess, possible superficial thrombophlebitis, cellulitis. Low susp for DVT given no posterior pain or swelling, but will evaluate - Duplex US ordered for evaluation prior to transport to detox 09/23/19 18:16 - DVT study negative - Will give abx for likely LLE cellulitis given anterior swelling and pain. Seen with Dr Oneill. Discussed with Dr Corrigan. Liberty Martinez PGY2 Discharge - Discharge Information Problems reviewed: Yes Clinical Impression/Diagnosis: Opiate overdose Qualifiers: Encounter type: initial encounter Injury intent: accidental or unintentional Qualified Code(s): T40.601A - Poisoning by unspecified narcotics, accidental ( unintentional), initial encounter Cellulitis Qualifiers: Site of cellulitis: extremity Site of cellulitis of extremity: lower extremity Laterality: left Qualified Code(s): L03.116 - Cellulitis of left lower limb Condition: Stable Disposition: HOME - Admission No - Additional Discharge Information Prescriptions: Clindamycin [Cleocin -] 150 mg PO Q8H 7 Days #63 capsule - Follow up/Referral Referrals: [facility] [place] [Provider Group] - Patient Discharge Instructions Patient Printed Discharge Instructions: DI for Drug Overdose in Adults Additional Instructions: Discharge Instructions: You were seen in the emergency department after an overdose. You admitted to using heroin just before the incident. It is strongly recommended that you stop using all drugs and other substances. Please proceed directly to detox at [address] [place] [address] for assistance. Your leg swelling was evaluated for possible blood clot, but no clot or pocket of fluid was found. You most likely have a skin infection called cellulitis. You have been prescribed an antibiotic called clindamycin. You should take 450mg every 8 hours for 7 days. This has been sent to the pharmacy at [address] [place] [address]. Seek immediate care for any additional overdose, chest pain, difficulty breathing, one-sided weakness, confusion, or any medical emergency. - Post Discharge Activity
[2019-09-23 18:01] VITALS: BP 138/82; PULSE 72
--- NOTE | 2019-09-25 15:46 | EKG ---
Test Reason : Blood Pressure : / mmHG Vent. Rate : 079 BPM Atrial Rate : 079 BPM P-R Int : 122 ms QRS Dur : 094 ms QT Int : 410 ms P-R-T Axes : 019 -02 045 degrees QTc Int : 470 ms NORMAL SINUS RHYTHM NONSPECIFIC T WAVE ABNORMALITY PROLONGED QT ABNORMAL ECG NO PREVIOUS ECGS AVAILABLE Confirmed by JUAN CONNOR MD ([id number]) on 09/25/2019 3:46:40 PM Referred By: Confirmed By:JUAN CONNOR MD
== END 2019-09-23 19:00 | disposition home or self-care (01) ==
LOC: JER 15:44
PROC: 3E0337Z Introduction of Electrolytic and Water Balance Substance into Peripheral Vein, Percutaneous Approach (ICD-10-PCS; principal; 2019-09-23)
PROC: 3E03329 Introduction of Other Anti-infective into Peripheral Vein, Percutaneous Approach (ICD-10-PCS; 2019-09-23)
PROC: 3E033NZ Introduction of Analgesics, Hypnotics, Sedatives into Peripheral Vein, Percutaneous Approach (ICD-10-PCS; 2019-09-23)
DX: L03.116 Cellulitis of left lower limb (principal); F11.10 Opioid abuse, uncomplicated; F14.10 Cocaine abuse, uncomplicated; Z90.49 Acquired absence of other specified parts of digestive tract
CPT/HCPCS: 93005; 93010; 93971-TC; 99282-25

== ENCOUNTER 2019-09-23 21:46 | Emergency (ER) | payer OTHER ==
[2019-09-23 22:05] VITALS: BP 137/87; PULSE 112; TEMP 101.2; BMI 16.1
[2019-09-23] MEDS ORDERED: SODIUM CHLORIDE IV ONE (23:35)
--- NOTE | 2019-09-23 23:46 | PDOC ---
Attending Attestation - Resident Resident Name: Dillon Subramanian - ED Attending Attestation I have performed the following: The case was reviewed & discussed with the resident - HPI HPI: 09/24/19 00:29 see below - Physicial Exam PE: 09/24/19 00:29 see below - Medical Decision Making 09/24/19 00:29 54-year-old female sent for evaluation of fever On arrival due to fever sepsis evaluation ordered On attempt to examine and interview the patient patient stated she did not need an evaluation and only wanted a piece of bread She became verbally aggressive with staff stating she can do what she wants and nobody is going to tell her what to do She refused to get undressed and would not comply with questioning and or exam Security was contacted and patient refusing to leave facility Due to aggressive behavior and noncompliance with care plan [place] [employer] contacted
--- NOTE | 2019-09-24 00:31 | PDOC ---
History of Present Illness - General Chief Complaint: SIRS, Suspected/Possible Stated Complaint: FEVER Time Seen by Provider: 09/23/19 23:46 Past History - Past Medical History Allergies/Adverse Reactions: Allergies Allergy/AdvReac Type Severity Reaction Status Date / Time No Known Allergies Allergy Verified 09/23/19 22:05 Home Medications: Ambulatory Orders Unobtainable 09/24/19 Anemia: No Asthma: No Cancer: No Cardiac Disorders: No CVA: No COPD: No CHF: No Dementia: No Diabetes: No GI Disorders: No Disorders: No HTN: No Hypercholesterolemia: No Kidney Stones: No Liver Disease: No Seizures: No Thyroid Disease: No - Surgical History Abdominal Surgery: No Appendectomy: No Cardiac Surgery: No Cholecystectomy: Yes (in 1988) Lung Surgery: No Neurologic Surgery: No Orthopedic Surgery: No - Reproductive History PID: No - Psycho Social/Smoking Cessation Hx Smoking History: Never smoked Have you smoked in the past 12 months: No Number of Cigarettes Smoked Daily: 5 Cigars Per Day: 0 Information on smoking cessation initiated: No 'Breaking Loose' booklet given: 11/06/18 Hx Alcohol Use: No Drug/Substance Use Hx: No Substance Use Type: Cocaine, Heroin Hx Substance Use Treatment: Yes *Physical Exam - Vital Signs Last Vital Signs Temp Pulse Resp BP Pulse Ox 101.2 F H 112 H 22 H 137/87 100 09/23/19 21:55 09/23/19 21:55 09/23/19 21:55 09/23/19 21:55 09/23/19 21:55 ED Treatment Course - LABORATORY CBC & Chemistry Diagram: 09/24/19 01:16 09/24/19 01:16 - RADIOLOGY Radiology Studies Ordered: Category Date Time Status CHEST X-RAY PORTABLE* [RAD] Stat Radiology 09/23/19 23:35 Ordered Medical Decision Making - Medical Decision Making 09/24/19 00:27 Patient [facility]. Patient refusing to cooperate with exam and irate. Attempted multiple times to direct patient to allow examination. Patient yelling and swearing at staff. Patient able to ambulate and oriented however continually repeating she wants a sandwich and saying there is nothing wrong with her. Attempted to explain food must wait for medical evaluation however patient observed to be drinking from sink. Patient remains uncooperative. Patient refuses to leave ER. Police called - patient to be escorted from ER. 09/24/19 00:50 [place] Police presented and patient more cooperative and saying she will stay. HPI, Exam and ROS able to be performed following this. HPI: Patient is a 54 yo female w/ pmh of polysubstance abuse (crack cocaine and heroin, last use this morning), HIV (not on medications, last CD4 unknown) who presents for evaluation from [facility] for fever. Patient denies other complaints. Was previously evaluated today in this ER following heroin use w/ narcan. Patient had US performed for LLE swelling which was negative and was sent back to [facility]. Returned to ED 2/2 fever. ROS: GENERAL/CONSTITUTIONAL: +Fever today only. No weakness. HEAD, EYES, EARS, NOSE AND THROAT: No change in vision. No ear pain or discharge. No sore throat. CARDIOVASCULAR: No chest pain or shortness of breath RESPIRATORY: No cough, wheezing, or hemoptysis. GASTROINTESTINAL: No nausea, vomiting, diarrhea or constipation. GENITOURINARY: No dysuria, frequency, or change in urination. MUSCULOSKELETAL: No joint or muscle swelling or pain. No neck or back pain. SKIN: No rash NEUROLOGIC: No headache, vertigo, loss of consciousness, or change in strength/ sensation. ENDOCRINE: No increased thirst. No abnormal weight change HEMATOLOGIC/LYMPHATIC: No anemia, easy bleeding, or history of blood clots. ALLERGIC/IMMUNOLOGIC: No hives or skin allergy. PE: GENERAL: +Patient febrile. Awake, alert, and fully oriented, in no acute distress HEAD: No signs of trauma, normocephalic, atraumatic EYES: PERRLA, EOMI, sclera anicteric, conjunctiva clear ENT: Auricles normal inspection, hearing grossly normal, nares patent, oropharynx clear without exudates. Moist mucosa NECK: Normal ROM, supple, no lymphadenopathy, JVD, or masses LUNGS: No distress, speaks full sentences, clear to auscultation bilaterally HEART: Regular rate and rhythm, normal S1 and S2, no murmurs, rubs or gallops, peripheral pulses normal and equal bilaterally. ABDOMEN: +2 large scars noted to abdomen patient reports are 2/2 hernia repair and gall bladder removal. Soft, nontender, normoactive bowel sounds. No guarding, no rebound. No masses EXTREMITIES: +Left lower extremity swollen and tender. Normal inspection, Normal range of motion, no edema. No clubbing or cyanosis. NEUROLOGICAL: Cranial nerves II through XII grossly intact. Normal speech, normal gait, no focal sensorimotor deficits SKIN: Warm, Dry, normal turgor, no rashes or lesions noted. A/P: Ms. Cottrell is a 54 yo female w/ pmh as described who presents for evaluation of symptoms of fever from detox. Patient evaluated with sepsis workup. Significant findings include swollen LLE which was previously evaluated today w/ US for DVT (negative). Patient laboratory workup negative. Labs grossly wnl. EKG normal sinus. CXR negative. Suspect fever 2/2 cellulitic process on LLE. Patient given IV ABX and home Rx. Discharging to home. Discharge - Discharge Information Problems reviewed: Yes Clinical Impression/Diagnosis: Cellulitis Qualifiers: Site of cellulitis: extremity Site of cellulitis of extremity: lower extremity Laterality: left Qualified Code(s): L03.116 - Cellulitis of left lower limb Disposition: HOME - Follow up/Referral - Patient Discharge Instructions Patient Printed Discharge Instructions: DI for Fever (Symptom) -- Adult, DI for Cellulitis -- Adult Additional Instructions: You were evaluated today in the ER and found to have a cellulitis on your leg. We started you on antibiotics and believe you are safe for discharge. Take all medications as proscribed. Please follow-up with primary care physician for further evaluation. Return to ER if any fever, chills, or other concerning symptoms. - Post Discharge Activity
--- NOTE | 2019-09-24 01:03 | PDOC ---
Attending Attestation - Resident Resident Name: Kenneth Sandy - ED Attending Attestation I have performed the following: I have examined & evaluated the patient, The case was reviewed & discussed with the resident, I agree w/resident's findings & plan - HPI HPI: 09/24/19 01:02 see resident hpi - Physicial Exam PE: 09/24/19 01:02 agree with resident exam - Medical Decision Making 09/24/19 01:02 54-year-old female sent for evaluation for fever Patient originally aggressive with staff refusing to be seen After contact with security team patient is now calm and compliant with exam Plan for sepsis evaluation and admission prior to return to detox
[2019-09-24] MEDS ORDERED: ACETAMINOPHEN INJECTION 100 ML IVPB ONE (01:31)
[2019-09-24] MEDS: ACETAMINOPHEN 1000 MG/100 ML VIAL (NON FORMULARY) IVPB ONE ×2 (01:39→03:38)
[2019-09-24 02:01] LABS: BASO % 0.3 % (0-2.0); EOS % 0.2 % (0-4.5); HEMATOCRIT 32.1 % (32.4-45.2); HEMOGLOBIN 10.9 GM/dL (10.7-15.3); LYMPH % 18.6 % (8-40); MCH 33.6 pg (25.7-33.7); MCHC 34.1 g/dl (32.0-36.0); MEAN CELL VOLUME 98.5 fl (80-96); MEAN PLT VOLUME 9.3 fl (7.5-11.1); MONO % 10.6 % (3.8-10.2); NEUT % 70.3 % (42.8-82.8); PLATELET COUNT 155 K/MM3 (134-434); RBC 3.26 M/mm3 (3.60-5.2); RDW 16.5 % (11.6-15.6); WHITE BLOOD COUNT 5.5 K/mm3 (4.0-10.0)
[2019-09-24 02:02] LABS: VENOUS PC02 49.2 mmHg (38-52); VENOUS PH 7.39 (7.31-7.41)
[2019-09-24 02:05] LABS: VENOUS PO2 < 49 mmHg (28-48)
[2019-09-24 02:23] LABS: INR 0.99 (0.83-1.09); PROTHROMBIN TIME (PATIENT) 11.7 SEC (9.7-13.0)
[2019-09-24 02:26] LABS: ACTIVATED PTT 31.2 SECONDS (25.2-36.5)
[2019-09-24 02:29] LABS: BILIRUBIN,TOTAL 0.3 mg/dL (0.2-1); BLOOD UREA NITROGEN 20.8 mg/dL (7-18); CALCIUM 8.4 mg/dL (8.5-10.1); CREATININE 1.2 mg/dL (0.55-1.3); POTASSIUM 4.4 mmol/L (3.5-5.1); TOT PROT 7.8 g/dl (6.4-8.2)
[2019-09-24 02:54] LABS: URINE APPEARANCE CLEAR; URINE BILIRUBIN NEGATIVE (NEGATIVE); URINE COLOR YELLOW; URINE GLUCOSE (UA) NEGATIVE (NEGATIVE); URINE KETONE NEGATIVE (NEGATIVE); URINE LEUK ESTERASE NEGATIVE (NEGATIVE); URINE NITRITE NEGATIVE (NEGATIVE); URINE PROTEIN TRACE (NEGATIVE); URINE UROBILINOGEN 0.2 mg/dL (0.2-1.0)
[2019-09-24] MEDS ORDERED: CLINDAMYCIN 600MG PREMIX IVPB 600 MG/50 ML BAG IVPB ONE ×2 (03:35)
--- NOTE | 2019-09-24 14:25 | EKG ---
Test Reason : Blood Pressure : / mmHG Vent. Rate : 085 BPM Atrial Rate : 085 BPM P-R Int : 116 ms QRS Dur : 094 ms QT Int : 398 ms P-R-T Axes : 040 -01 053 degrees QTc Int : 473 ms NORMAL SINUS RHYTHM NORMAL ECG WHEN COMPARED WITH ECG OF 23-SEP-2019 20:56, INCOMPLETE RIGHT BUNDLE BRANCH BLOCK IS NO LONGER PRESENT QT HAS LENGTHENED Confirmed by ZACHARY GARCIA, MINERVA ([id number]) on 09/24/2019 2:25:34 PM Referred By: Confirmed By:MINERVA SHARMA MD
--- NOTE | 2019-09-27 14:17 | EKG ---
Test Reason : Blood Pressure : / mmHG Vent. Rate : 080 BPM Atrial Rate : 080 BPM P-R Int : 120 ms QRS Dur : 092 ms QT Int : 360 ms P-R-T Axes : 043 014 025 degrees QTc Int : 415 ms NORMAL SINUS RHYTHM INCOMPLETE RIGHT BUNDLE BRANCH BLOCK NONSPECIFIC T WAVE ABNORMALITY ABNORMAL ECG Confirmed by MD DOROTHY, ANYI ([id number]) on 09/27/2019 2:17:04 PM Referred By: Confirmed By:ANYI DE LA CRUZ MD
== END 2019-09-24 07:03 | disposition home or self-care (01) ==
LOC: JER 21:46
PROC: 3E033NZ Introduction of Analgesics, Hypnotics, Sedatives into Peripheral Vein, Percutaneous Approach (ICD-10-PCS; principal; 2019-09-23)
PROC: 3E03329 Introduction of Other Anti-infective into Peripheral Vein, Percutaneous Approach (ICD-10-PCS; 2019-09-23)
PROC: 3E0337Z Introduction of Electrolytic and Water Balance Substance into Peripheral Vein, Percutaneous Approach (ICD-10-PCS; 2019-09-23)
DX: L03.116 Cellulitis of left lower limb (principal)
CPT/HCPCS: 36415; 71045-TC-FY; 80053; 81003; 82803; 83605; 84484; 85025; 85610; 85730; 87040; 87086; 87804; 93005; 93010; 99282-25; J0131; J7030

== ENCOUNTER 2019-09-24 08:21 | Inpatient (IN) | payer OTHER ==
[2019-09-24 09:29] VITALS: BMI 19.3
--- NOTE | 2019-09-24 10:04 | HP ---
COWS - Scale Sweatin= Chills/Flushing Restless Observation: 0= Sits Still Pupil Size: 0= Normal to Room Light Bone or Joint Aches: 1= Mild Discomfort Runny Nose/ Eye Tearin= Nasal Congestion GI Upset > 30mins: 1= Stomach Cramp Tremor Observation: 0= None Yawning Observation: 0= None Anxiety or Irritability: 0= None Goose Flesh Skin: 0=Smooth Skin CIWA Score - Admission Criteria OASAS Guidelines: Admission for Medically Managed Detox: Requires at least one of the followin. CIWA greater than 12 2. Seizures within the past 24 hours 3. Delirium tremens within the past 24 hours 4. Hallucinations within the past 24 hours 5. Acute intervention needed for co occurring medical disorder 6. Acute intervention needed for co occurring psychiatric disorder 7. Severe withdrawal that cannot be handled at a lower level of care (continued vomiting, continued diarrhea, abnormal vital signs) requiring intravenous medication and/or fluids 8. Admitting History and Physical - Admission Chief Complaint: Ms. Cottrell is a 54 yo woman who returns from [facility] ED after an OD yesterday in the [facility] waiting area and subsequent fever. She returns for admission to detox History of Present Illness: Ms. Cottrell is a 54 yo woman who returns from [facility] ED after an OD yesterday in the [facility] waiting area. She returned to [facility] and was noted to have a fever and returned to the ED where she was tx with IV Clindamycin for the question of left leg cellulits. PMH: HIV + PSH: madan, hernia repair: incisional, ectopic Substance use history Heroin: first use age 29 y, last use yesterday, quantity: 10 bags, OD yesterday. Inhalation Crack: first use age 18 y, last use yesterday, $250/day History Source: Patient Limitations to Obtaining History: Other (sleepy) - Past Medical History ...LMP: 04/28/12 ...: No - Past Surgical History Past Surgical History: Yes: Cholecystectomy, Hernia Repair - Smoking History Smoking history: Current every day smoker Have you smoked in the past 12 months: No Aproximately how many cigarettes per day: 6 - Alcohol/Substance Use Hx Alcohol Use: No History of Substance Use: reports: Cocaine, Heroin Admission ROS S - HPI Allergies/Adverse Reactions: Allergies Allergy/AdvReac Type Severity Reaction Status Date / Time No Known Allergies Allergy Verified 09/24/19 09:24 - Ebola screening Have you traveled outside of the country in the last 21 days: No Have you had contact with anyone from an Ebola affected area: No Have you been sick,other than usual withdrawal symptoms: No Do you have a fever: No - Review of Systems Constitutional: Other (Pt unable to cooperate fully, falls asleep unless stimulated) Respiratory: reports: No Symptoms reported Cardiac: reports: No Symptoms Reported GI: reports: No Symptoms Reported Musculoskeletal: reports: Other (left calf swelling and tender) Patient History - Patient Medical History Hx Anemia: No Hx Asthma: No Hx Chronic Obstructive Pulmonary Disease (COPD): No Hx Cancer: No Hx Cardiac Disorders: No Hx Congestive Heart Failure: No Hx Hypertension: No Hx Hypercholesterolemia: No Hx Pacemaker: No HX Cerebrovascular Accident: No Hx Seizures: No Hx Dementia: No Hx Diabetes: No Hx Gastrointestinal Disorders: No Hx Liver Disease: No Hx Genitourinary Disorders: No Hx Sexually Transmitted Disorders: No Hx Renal Disease (ESRD): No Hx Thyroid Disease: No Hx Human Immunodeficiency Virus (HIV): Yes (since 1997) Hx Hepatitis C: No Hx Depression: No Hx Suicide Attempt: No Hx Bipolar Disorder: No Hx Schizophrenia: No - Patient Surgical History Past Surgical History: Yes Hx Neurologic Surgery: No Hx Cataract Extraction: No Hx Cardiac Surgery: No Hx Lung Surgery: No Hx Breast Surgery: No Hx Breast Biopsy: No Hx Abdominal Surgery: No Hx Appendectomy: No Hx Cholecystectomy: Yes (in 1988) Hx Genitourinary Surgery: No Hx Section: No Hx Orthopedic Surgery: No Other Surgical History: Incisional hernia repair/ ectopic Anesthesia Reaction: No - PPD History Previous Implant?: Yes Documented Results: Negative w/o proof Implanted On Prior R Admission?: Yes Date: 07/14/18 Results: 0mm - Reproductive History Last Menstrual Period: 04/28/12 Patient : No - Smoking Cessation Smoking history: Current every day smoker Have you smoked in the past 12 months: No Aproximately how many cigarettes per day: 6 Cigars Per Day: 0 Hx Chewing Tobacco Use: No Initiated information on smoking cessation: Yes 'Breaking Loose' booklet given: 09/24/19 - Substances abused Heroin Substance route: Inhalation Frequency: Daily Amount used: 10 bags Age of first use: 29 Date of last use: 09/23/19 Crack Substance route: Smoking Frequency: Daily Amount used: $250 Age of first use: 18 Date of last use: 09/23/19 Admission Physical Exam [facility] - Vital Signs Vital Signs: Vital Signs - 24 hr 09/24/19 09:22 Temperature 98.3 F Pulse Rate 79 Respiratory 18 Rate Blood Pressure 131/85 - Physical General Appearance: Yes: No Apparent Distress, Nourished, Thin, Other (sleepy, arousable) HEENTM: Yes: Hearing grossly Normal, Normal Voice Respiratory: Yes: Lungs Clear Neck: Yes: Within Normal Limits Cardiology: Yes: Regular Rate, S1, S2 Abdominal: Yes: Normal Bowel Sounds, Non Tender, Flat Back: Yes: Normal Inspection Extremities: Yes: Swelling (left calf tender) Neurological: Yes: Other (sleepy, easily aroused but falls back to sleep almost immediately) Integumentary: Yes: Other (multiple scars on forearms) - Diagnostic (1) Cocaine abuse Current Visit: Yes Status: Acute (2) Cellulitis Current Visit: Yes Status: Acute Qualifiers: Site of cellulitis: extremity Site of cellulitis of extremity: lower extremity Laterality: left Qualified Code(s): L03.116 - Cellulitis of left lower limb (3) Opioid dependence with withdrawal Current Visit: Yes Status: Acute Cleared for Admission [facility] - Detox or Rehab [facility] Level of Care: Medically Managed Breathalyzer - Breathalyzer Breathalyzer: 0 Urine Drug Screen - Test Device Lot number: [id number] Expiration date: 07/13/21 - Control Is test valid?: Yes - Results Drug screen NEGATIVE: Yes Urine drug screen results: SHIRA-Cocaine, FEN-Fentanyl, MOP-Opiates Inpatient Rehab Admission - Rehab Decision to Admit Inpatient rehab admission?: No
[2019-09-24] MEDS ORDERED: MAGNESIUM CITRATE 300 ML BOTTLE PO PRN (10:16)
[2019-09-24] MEDS ORDERED: IBUPROFEN 400 MG TABLET (FP) PO PRN (10:16)
[2019-09-24] MEDS ORDERED: MELATONIN 5 MG TABLETS PO PRN (10:16)
[2019-09-24] MEDS ORDERED: MAG HYDROX/AL HYDROX/SIMETH 30 ML UNIT-DOSE CUP PO PRN (10:16)
[2019-09-24] MEDS ORDERED: MENTHOL/PHENOL 1 EACH UD MM PRN (10:16)
[2019-09-24] MEDS ORDERED: BISMUTH SUBSALICYLATE 262 MG/15 ML BTL PO PRN (10:16)
[2019-09-24] MEDS ORDERED: METHOCARBAMOL 500 MG TABLET PO PRN (10:16)
[2019-09-24] MEDS ORDERED: MAGNESIUM HYDROX 2400MG/30ML ORAL SUSPENSION 30 ML CUP PO PRN (10:16)
[2019-09-24] MEDS ORDERED: ACETAMINOPHEN 325 MG TABLET (FP) PO PRN ×2 (10:16)
[2019-09-24] MEDS ORDERED: cloNIDine HCL 0.1 MG TABLET PO PRN (10:16)
[2019-09-24] MEDS ORDERED: METHADONE HCL 10 MG TABLET (FOR DETOX USE ONLY) PO ONE (10:40)
[2019-09-24] MEDS: CLINDAMYCIN HCL 150 MG CAPSULE (FP) PO SCH ×2 (12:51→17:58)
[2019-09-24] MEDS: THIAMINE HCL 100 MG TABLET (FP) PO SCH (22:38)
[2019-09-24] MEDS: hydrOXYzine PAMOATE 25 MG CAPSULE (FP) PO PRN (22:38)
[2019-09-25] MEDS: CLINDAMYCIN HCL 150 MG CAPSULE (FP) PO SCH ×4 (00:13→23:48)
[2019-09-25] MEDS ORDERED: METHADONE HCL 5 MG TABLET (FOR DETOX USE ONLY) ONE (09:02)
[2019-09-25] MEDS ORDERED: METHADONE HCL 10 MG TABLET (FOR DETOX USE ONLY) ONE (09:02)
[2019-09-25] MEDS ORDERED: METHADONE (DETOX) 20 MG, METHADONE (DETOX) 5 MG PO ONE (10:00)
[2019-09-25] MEDS: PRENATAL VITAMINS W/ FOLIC ACID TABLET (FP) PO SCH (10:54)
--- NOTE | 2019-09-25 13:40 | PN ---
BHS COWS - Scale Resting Pulse: 0= [place] 80 or Below Sweatin= Chills/Flushing Restless Observation: 1= Difficult to Sit Still Pupil Size: 0= Normal to Room Light Bone or Joint Aches: 2= Severe Diffuse Aches Runny Nose/ Eye Tearin= Nasal Congestion GI Upset > 30mins: 0= None Tremor Observation of Outstretched Hands: 2= Slight Tremor Visible Yawning Observation: 2= >3x During Session Anxiety or Irritability: 2=Irritable/Anxious Goose Flesh Skin: 0=Smooth Skin COWS Score: 11 S Progress Note (SOAP) Subjective: sweats shakes dry itchy skin body aches headache Objective: 09/25/19 13:38 Vital Signs Temperature 99.7 F H 09/25/19 09:17 Pulse Rate 77 09/25/19 09:17 Respiratory Rate 19 09/25/19 09:17 Blood Pressure 124/77 09/25/19 09:17 O2 Sat by Pulse Oximetry (%) labs noted on her visit to [place] ED; will repeat cbc and cmp aaox3 ambulating no acute distress Assessment: 09/25/19 13:41 withdrawals Plan: continue detox increase fluids pending lab results
[2019-09-25] MEDS: THIAMINE HCL 100 MG TABLET (FP) PO SCH (22:47)
[2019-09-25] MEDS: AMMONIUM LACTATE 12% LOTION 225 GM BOTTLE TP SCH (23:47)
[2019-09-26] MEDS: CLINDAMYCIN HCL 150 MG CAPSULE (FP) PO SCH ×5 (06:03→23:34)
[2019-09-26] MEDS: AMMONIUM LACTATE 12% LOTION 225 GM BOTTLE TP SCH ×3 (08:43→22:35)
[2019-09-26] MEDS ORDERED: METHADONE HCL 10 MG TABLET (FOR DETOX USE ONLY) PO ONE (10:00)
[2019-09-26 10:09] LABS: ALBUMIN 2.5 g/dl (3.4-5.0); BILIRUBIN,TOTAL 0.2 mg/dL (0.2-1); BLOOD UREA NITROGEN 21.1 mg/dL (7-18); CALCIUM 8.8 mg/dL (8.5-10.1); POTASSIUM 4.4 mmol/L (3.5-5.1); TOT PROT 7.2 g/dl (6.4-8.2)
[2019-09-26] MEDS: PRENATAL VITAMINS W/ FOLIC ACID TABLET (FP) PO SCH (10:31)
[2019-09-26 10:58] LABS: EOS % 1.6 % (0-4.5); HEMOGLOBIN 11.1 GM/dL (10.7-15.3); LYMPH % 39.6 % (8-40); MCH 33.2 pg (25.7-33.7); MCHC 33.6 g/dl (32.0-36.0); MEAN CELL VOLUME 98.9 fl (80-96); MEAN PLT VOLUME 9.5 fl (7.5-11.1); MONO % 21.6 % (3.8-10.2); NEUT % 36.2 % (42.8-82.8); PLATELET COUNT 144 K/MM3 (134-434); RBC 3.34 M/mm3 (3.60-5.2); RDW 16.7 % (11.6-15.6); WHITE BLOOD COUNT 2.8 K/mm3 (4.0-10.0)
[2019-09-26 14:04] LABS: ANISOCYTOSIS 0; MACROCYTOSIS 0; PLATELET ESTIMATE NORMAL
--- NOTE | 2019-09-26 14:58 | PN ---
S COWS - Scale Resting Pulse: 0= [place] 80 or Below Sweatin= Chills/Flushing Restless Observation: 1= Difficult to Sit Still Pupil Size: 0= Normal to Room Light Bone or Joint Aches: 1= Mild Discomfort Runny Nose/ Eye Tearin= None GI Upset > 30mins: 2= Nausea/Diarrhea Tremor Observation of Outstretched Hands: 1= Tremor [place], Not Seen Yawning Observation: 0= None Anxiety or Irritability: 1=Feels Anxious/Irritable Goose Flesh Skin: 0=Smooth Skin COWS Score: 7 S Progress Note (SOAP) Subjective: Interrupted sleep, fatigue Objective: 09/26/19 14:57 Withdrawal sx Vital Signs 09/26/19 09/26/19 09:50 13:31 Temperature 98.6 F 98.2 F Pulse Rate 73 75 Respiratory 18 20 Rate Blood Pressure 123/74 129/73 VSS Laboratory Last Values WBC 2.8 K/mm3 (4.0-10.0) L 09/26/19 07:30 RBC 3.34 M/mm3 (3.60-5.2) L 09/26/19 07:30 Hgb 11.1 GM/dL (10.7-15.3) 09/26/19 07:30 Hct 33.0 % (32.4-45.2) 09/26/19 07:30 MCV 98.9 fl (80-96) H 09/26/19 07:30 MCH 33.2 pg (25.7-33.7) 09/26/19 07:30 MCHC 33.6 g/dl (32.0-36.0) 09/26/19 07:30 RDW 16.7 % (11.6-15.6) H 09/26/19 07:30 Plt Count 144 K/MM3 (134-434) 09/26/19 07:30 MPV 9.5 fl (7.5-11.1) 09/26/19 07:30 Absolute Neuts (auto) 1.0 K/mm3 (1.5-8.0) L 09/26/19 07:30 Neutrophils % 36.2 % (42.8-82.8) L D 09/26/19 07:30 Neutrophils % (Manual) 43.9 % (42.8-82.8) 09/26/19 07:30 Band Neutrophils % 0.0 % 09/26/19 07:30 Lymphocytes % 39.6 % (8-40) D 09/26/19 07:30 Lymphocytes % (Manual) 32.7 % (8-40) 09/26/19 07:30 Monocytes % 21.6 % (3.8-10.2) H D 09/26/19 07:30 Monocytes % (Manual) 15 % (3.8-10.2) H 09/26/19 07:30 Eosinophils % 1.6 % (0-4.5) D 09/26/19 07:30 Eosinophils % (Manual) 2.0 % (0-4.5) 09/26/19 07:30 Basophils % 1.0 % (0-2.0) D 09/26/19 07:30 Basophils % (Manual) 0.0 % (0-2.0) 09/26/19 07:30 Myelocytes % (Man) 0 % (0-2) 09/26/19 07:30 Promyelocytes % (Man) 0 % (0-2) 09/26/19 07:30 Blast Cells % (Manual) 0 % (0-0) 09/26/19 07:30 Nucleated RBC % 0 % (0-0) 09/26/19 07:30 Metamyelocytes 0 % (0-2) 09/26/19 07:30 Hypochromia 1+ 09/26/19 07:30 Platelet Estimate Normal 09/26/19 07:30 Polychromasia 0 09/26/19 07:30 Poikilocytosis 0 09/26/19 07:30 Anisocytosis 0 09/26/19 07:30 Microcytosis 0 09/26/19 07:30 Macrocytosis 0 09/26/19 07:30 Stomatocytes 0 09/26/19 07:30 Sodium 141 mmol/L (136-145) 09/26/19 07:30 Potassium 4.4 mmol/L (3.5-5.1) 09/26/19 07:30 Chloride 106 mmol/L (98-107) 09/26/19 07:30 Carbon Dioxide 33 mmol/L (21-32) H 09/26/19 07:30 Anion Gap 2 MMOL/L (8-16) L 09/26/19 07:30 BUN 21.1 mg/dL (7-18) H 09/26/19 07:30 Creatinine 1.0 mg/dL (0.55-1.3) 09/26/19 07:30 Est GFR (CKD-EPI)AfAm 73.97 09/26/19 07:30 Est GFR (CKD-EPI)NonAf 63.82 09/26/19 07:30 Random Glucose 78 mg/dL (74-106) 09/26/19 07:30 Calcium 8.8 mg/dL (8.5-10.1) 09/26/19 07:30 Total Bilirubin 0.2 mg/dL (0.2-1) 09/26/19 07:30 AST 101 U/L (15-37) H 09/26/19 07:30 ALT 140 U/L (13-61) H 09/26/19 07:30 Alkaline Phosphatase 88 U/L (45-117) 09/26/19 07:30 Total Protein 7.2 g/dl (6.4-8.2) 09/26/19 07:30 Albumin 2.5 g/dl (3.4-5.0) L 09/26/19 07:30 RPR Titer Nonreactive (NONREACTIVE) 09/26/19 07:30 Labs noted, no panic values Assessment: 09/26/19 14:58 Withdrawal sx Plan: Continue detox
[2019-09-26] MEDS: THIAMINE HCL 100 MG TABLET (FP) PO SCH (22:34)
[2019-09-26] MEDS: hydrOXYzine PAMOATE 25 MG CAPSULE (FP) PO PRN (22:36)
[2019-09-27] MEDS: CLINDAMYCIN HCL 150 MG CAPSULE (FP) PO SCH ×3 (06:32→22:17)
[2019-09-27] MEDS ORDERED: METHADONE HCL 10 MG TABLET (FOR DETOX USE ONLY) ONE (09:18)
[2019-09-27] MEDS ORDERED: METHADONE HCL 5 MG TABLET (FOR DETOX USE ONLY) ONE (09:18)
[2019-09-27] MEDS ORDERED: METHADONE (DETOX) 10 MG, METHADONE (DETOX) 5 MG PO ONE (10:00)
[2019-09-27] MEDS: PRENATAL VITAMINS W/ FOLIC ACID TABLET (FP) PO SCH (10:32)
[2019-09-27] MEDS: AMMONIUM LACTATE 12% LOTION 225 GM BOTTLE TP SCH ×2 (10:32→22:17)
--- NOTE | 2019-09-27 16:43 | PN ---
BHS COWS - Scale Resting Pulse: 0= [place] 80 or Below Sweatin= Chills/Flushing Restless Observation: 0= Sits Still Pupil Size: 0= Normal to Room Light Bone or Joint Aches: 1= Mild Discomfort Runny Nose/ Eye Tearin= None GI Upset > 30mins: 1= Stomach Cramp Tremor Observation of Outstretched Hands: 2= Slight Tremor Visible Yawning Observation: 0= None Anxiety or Irritability: 2=Irritable/Anxious Goose Flesh Skin: 0=Smooth Skin COWS Score: 7 BHS Progress Note (SOAP) Subjective: Chills, sweating, tremor, interrupted sleep Objective: 09/27/19 16:39 Last Vital Signs Temp Pulse Resp BP Pulse Ox 98.2 F 65 18 115/82 09/27/19 12:55 09/27/19 12:55 09/27/19 12:55 09/27/19 12:55 Laboratory Tests 09/24/19 09/26/19 09/26/19 10:17 07:30 07:30 WBC 2.8 L RBC 3.34 L Hgb 11.1 Hct 33.0 MCV 98.9 H MCH 33.2 MCHC 33.6 RDW 16.7 H Plt Count 144 MPV 9.5 Absolute Neuts (auto) 1.0 L Neutrophils % 36.2 L D Neutrophils % (Manual) 43.9 Band Neutrophils % 0.0 Lymphocytes % 39.6 D Lymphocytes % (Manual) 32.7 Monocytes % 21.6 H D Monocytes % (Manual) 15 H Eosinophils % 1.6 D Eosinophils % (Manual) 2.0 Basophils % 1.0 D Basophils % (Manual) 0.0 Myelocytes % (Man) 0 Promyelocytes % (Man) 0 Blast Cells % (Manual) 0 Nucleated RBC % 0 Metamyelocytes 0 Hypochromia 1+ Platelet Estimate Normal Polychromasia 0 Poikilocytosis 0 Anisocytosis 0 Microcytosis 0 Macrocytosis 0 Stomatocytes 0 Sodium 141 Potassium 4.4 Chloride 106 Carbon Dioxide 33 H Anion Gap 2 L BUN 21.1 H Creatinine 1.0 Est GFR (CKD-EPI)AfAm 73.97 Est GFR (CKD-EPI)NonAf 63.82 Random Glucose 78 Calcium 8.8 Total Bilirubin 0.2 AST 101 H ALT 140 H Alkaline Phosphatase 88 Total Protein 7.2 Albumin 2.5 L POC Urine HCG, Qual Negative RPR Titer 09/26/19 07:30 WBC RBC Hgb Hct MCV MCH MCHC RDW Plt Count MPV Absolute Neuts (auto) Neutrophils % Neutrophils % (Manual) Band Neutrophils % Lymphocytes % Lymphocytes % (Manual) Monocytes % Monocytes % (Manual) Eosinophils % Eosinophils % (Manual) Basophils % Basophils % (Manual) Myelocytes % (Man) Promyelocytes % (Man) Blast Cells % (Manual) Nucleated RBC % Metamyelocytes Hypochromia Platelet Estimate Polychromasia Poikilocytosis Anisocytosis Microcytosis Macrocytosis Stomatocytes Sodium Potassium Chloride Carbon Dioxide Anion Gap BUN Creatinine Est GFR (CKD-EPI)AfAm Est GFR (CKD-EPI)NonAf Random Glucose Calcium Total Bilirubin AST ALT Alkaline Phosphatase Total Protein Albumin POC Urine HCG, Qual RPR Titer Nonreactive Labs reviewed: azotemia, transaminitis and hypoalbuminemia Assessment: 09/27/19 16:42 Withdrawal sxs Noted with azotemia, transaminitis and hypoalbuminemia Plan: Continue detox Encouraged PO water intake Azotemia: encouraged PO water intake Transaminitis: most likely due to substance use, repeat AST/ALT Hypoalbuminemia: encourage diet, add ensure one cup PO TID
[2019-09-27] MEDS: THIAMINE HCL 100 MG TABLET (FP) PO SCH (22:16)
[2019-09-27] MEDS: hydrOXYzine PAMOATE 25 MG CAPSULE (FP) PO PRN (22:18)
[2019-09-28] MEDS: CLINDAMYCIN HCL 150 MG CAPSULE (FP) PO SCH ×4 (05:15→18:14)
[2019-09-28] MEDS ORDERED: METHADONE HCL 10 MG TABLET (FOR DETOX USE ONLY) PO ONE (10:00)
[2019-09-28] MEDS: AMMONIUM LACTATE 12% LOTION 225 GM BOTTLE TP SCH ×2 (10:49→22:43)
[2019-09-28] MEDS: PRENATAL VITAMINS W/ FOLIC ACID TABLET (FP) PO SCH (10:49)
--- NOTE | 2019-09-28 11:56 | PN ---
BHS COWS - Scale Resting Pulse: 0= [place] 80 or Below Sweatin= No chills or Flushing Restless Observation: 1= Difficult to Sit Still Pupil Size: 0= Normal to Room Light Bone or Joint Aches: 0= None Runny Nose/ Eye Tearin= None GI Upset > 30mins: 0= None Tremor Observation of Outstretched Hands: 1= Tremor [place], Not Seen Yawning Observation: 0= None Anxiety or Irritability: 1=Feels Anxious/Irritable Goose Flesh Skin: 0=Smooth Skin COWS Score: 3 S Progress Note (SOAP) Subjective: knee discomfort restless Objective: 09/28/19 11:53 Vital Signs Temperature 98.2 F 09/28/19 08:48 Pulse Rate 64 09/28/19 08:48 Respiratory Rate 16 09/28/19 08:48 Blood Pressure 107/68 09/28/19 08:48 O2 Sat by Pulse Oximetry (%) aaox3 ambulating with a limp no acute distress Assessment: 09/28/19 11:54 withdrawals pt states her left knee has been this way for months she has fluid and has not taken the time to get it checked out. pt was encouraged to use a cane. pt in agreement. pt was also advised to see an orthopedic MD or her PCP after detox for treatment for the knee, pt in agreement. Plan: continue detox cane ordered d/c in am
[2019-09-28 13:18] LABS: SGOT/AST 102 U/L (15-37); SGPT/ALT 140 U/L (13-61)
[2019-09-28] MEDS: VITAMINS A AND D TOPICAL OINTMENT 60 GM TUBE TP SCH ×2 (15:23→18:15)
[2019-09-28] MEDS: hydrOXYzine PAMOATE 25 MG CAPSULE (FP) PO PRN (22:41)
[2019-09-28] MEDS: THIAMINE HCL 100 MG TABLET (FP) PO SCH (22:42)
[2019-09-29] MEDS: CLINDAMYCIN HCL 150 MG CAPSULE (FP) PO SCH ×2 (05:34)
[2019-09-29] MEDS ORDERED: METHADONE HCL 5 MG TABLET (FOR DETOX USE ONLY) PO ONE (06:00)
[2019-09-29 06:59] VITALS: TEMP 98.6
[2019-09-29] MEDS: VITAMINS A AND D TOPICAL OINTMENT 60 GM TUBE TP SCH (08:02)
--- NOTE | 2019-09-29 09:14 | DS ---
[facility] Detox Discharge Summary Admission Date: 09/24/19 Discharge Date: 09/29/19 - History Present History: Cocaine Dependence, Opioid Dependence - Physical Exam Results Vital Signs: Vital Signs Temperature 98.6 F 09/29/19 05:40 Pulse Rate 69 09/29/19 05:40 Respiratory Rate 16 09/29/19 05:40 Blood Pressure 142/81 09/29/19 05:40 O2 Sat by Pulse Oximetry (%) Pertinent Admission Physical Exam Findings: Vital Signs Temperature 98.6 F 09/29/19 05:40 Pulse Rate 69 09/29/19 05:40 Respiratory Rate 16 09/29/19 05:40 Blood Pressure 142/81 09/29/19 05:40 O2 Sat by Pulse Oximetry (%) Laboratory Tests 09/24/19 09/26/19 09/26/19 10:17 07:30 07:30 WBC 2.8 L RBC 3.34 L Hgb 11.1 Hct 33.0 MCV 98.9 H MCH 33.2 MCHC 33.6 RDW 16.7 H Plt Count 144 MPV 9.5 Absolute Neuts (auto) 1.0 L Neutrophils % 36.2 L D Neutrophils % (Manual) 43.9 Band Neutrophils % 0.0 Lymphocytes % 39.6 D Lymphocytes % (Manual) 32.7 Monocytes % 21.6 H D Monocytes % (Manual) 15 H Eosinophils % 1.6 D Eosinophils % (Manual) 2.0 Basophils % 1.0 D Basophils % (Manual) 0.0 Myelocytes % (Man) 0 Promyelocytes % (Man) 0 Blast Cells % (Manual) 0 Nucleated RBC % 0 Metamyelocytes 0 Hypochromia 1+ Platelet Estimate Normal Polychromasia 0 Poikilocytosis 0 Anisocytosis 0 Microcytosis 0 Macrocytosis 0 Stomatocytes 0 Sodium 141 Potassium 4.4 Chloride 106 Carbon Dioxide 33 H Anion Gap 2 L BUN 21.1 H Creatinine 1.0 Est GFR (CKD-EPI)AfAm 73.97 Est GFR (CKD-EPI)NonAf 63.82 Random Glucose 78 Calcium 8.8 Total Bilirubin 0.2 AST 101 H ALT 140 H Alkaline Phosphatase 88 Total Protein 7.2 Albumin 2.5 L POC Urine HCG, Qual Negative RPR Titer 09/26/19 09/28/19 07:30 08:47 WBC RBC Hgb Hct MCV MCH MCHC RDW Plt Count MPV Absolute Neuts (auto) Neutrophils % Neutrophils % (Manual) Band Neutrophils % Lymphocytes % Lymphocytes % (Manual) Monocytes % Monocytes % (Manual) Eosinophils % Eosinophils % (Manual) Basophils % Basophils % (Manual) Myelocytes % (Man) Promyelocytes % (Man) Blast Cells % (Manual) Nucleated RBC % Metamyelocytes Hypochromia Platelet Estimate Polychromasia Poikilocytosis Anisocytosis Microcytosis Macrocytosis Stomatocytes Sodium Potassium Chloride Carbon Dioxide Anion Gap BUN Creatinine Est GFR (CKD-EPI)AfAm Est GFR (CKD-EPI)NonAf Random Glucose Calcium Total Bilirubin AST 102 H ALT 140 H Alkaline Phosphatase Total Protein Albumin POC Urine HCG, Qual RPR Titer Nonreactive aaox3 ambulating no acute distress skin intact - Treatment Hospital Course: Detox Protocol Followed, Detoxed Safely, Responded well, Discharged Condition Good, Rehab Referral Accepted Patient has Accepted a Rehab Referral to: pt declined - Medication Discharge Medications: Ambulatory Orders Unobtainable 09/24/19 - Diagnosis (1) Cellulitis Current Visit: Yes Status: Resolved Qualifiers: Site of cellulitis: extremity Site of cellulitis of extremity: lower extremity Laterality: left Qualified Code(s): L03.116 - Cellulitis of left lower limb (2) Cocaine abuse Current Visit: Yes Status: Acute (3) Opioid dependence with withdrawal Current Visit: Yes Status: Chronic (4) Dry skin Current Visit: No Status: Acute (5) Opiate overdose Current Visit: No Status: Acute Qualifiers: Encounter type: initial encounter Injury intent: accidental or unintentional Qualified Code(s): T40.601A - Poisoning by unspecified narcotics , accidental (unintentional), initial encounter (6) Substance-induced sleep disorder Current Visit: No Status: Acute (7) Weight loss Current Visit: No Status: Acute (8) Back pain Current Visit: No Status: Chronic Qualifiers: Back pain location: low back pain Chronicity: unspecified Back pain laterality: unspecified Sciatica presence: unspecified whether sciatica present Qualified Code(s): M54.5 - Low back pain (9) Cocaine dependence Current Visit: Yes Status: Chronic Qualifiers: Substance use status: uncomplicated Qualified Code(s): F14.20 - Cocaine dependence, uncomplicated (10) HIV (human immunodeficiency virus infection) Current Visit: Yes Status: Chronic Qualifiers: HIV symptom status: unspecified Qualified Code(s): B20 - Human immunodeficiency virus [HIV] disease (11) Nicotine dependence Current Visit: Yes Status: Chronic Qualifiers: Nicotine product type: cigarettes Substance use status: uncomplicated Qualified Code(s): F17.210 - Nicotine dependence, cigarettes, uncomplicated (12) Opioid dependence Current Visit: Yes Status: Chronic Qualifiers: Substance use status: uncomplicated Qualified Code(s): F11.20 - Opioid dependence, uncomplicated - AMA Did Patient Leave Against Medical Advice: No
[2019-09-29 09:38] VITALS: BP 126/67; PULSE 74
== END 2019-09-29 10:20 | disposition home or self-care (01) | DRG 773 ==
LOC: YASAS 08:21 → Y6N 10:22
PROVIDERS: ADMIT Allergy & Immunology; ATTEND Allergy & Immunology
PROC: HZ2ZZZZ Detoxification Services for Substance Abuse Treatment (ICD-10-PCS; principal; 2019-09-24)
DX: F11.23 Opioid dependence with withdrawal (principal); F14.20 Cocaine dependence, uncomplicated; F17.210 Nicotine dependence, cigarettes, uncomplicated; F19.282 Other psychoactive substance dependence with psychoactive substance-induced sleep disorder; B20 Human immunodeficiency virus [HIV] disease; L98.8 Other specified disorders of the skin and subcutaneous tissue; L03.116 Cellulitis of left lower limb; R63.4 Abnormal weight loss; R79.89 Other specified abnormal findings of blood chemistry; R74.0 Nonspecific elevation of levels of transaminase and lactic acid dehydrogenase [LDH]; R77.0 Abnormality of albumin; Z86.59 Personal history of other mental and behavioral disorders
CPT/HCPCS: 36415; 80053; 81025; 84450; 84460; 85025; 86593; J0735

== ENCOUNTER 2020-02-26 14:55 | Inpatient (IN) | payer OTHER ==
--- NOTE | 2020-02-26 15:51 | BHS.RME ---
Substance Use & Tx History - Substance Use History Alcohol Substance amount: 1-2 pints vodka Frequency of use: Daily Substance route: Oral Date of Last Use: 02/25/20 Heroin Substance amount: one bundle Frequency of use: Daily Substance route: Inhalation (ex: sniffing or snorting) Date of Last Use: 02/25/20 Cocaine-Crack Substance amount: $300 Frequency of use: Daily Substance route: Smoking Date of Last Use: 02/25/20 Nicotine Substance amount: 7 cigs Frequency of use: Daily Substance route: Smoking Date of Last Use: 02/26/20 Physical/Psych/Mental Status - Behavior General Behavior: Decreased activity Eye Contact: Normal - Cooperativeness Cooperativeness: Cooperative - Thinking Thought Processes: Tight Thought content: Future oriented - Physical Health Problems Is patient presently having any pain?: No Does patient presently have any injuries (include location): No Does patient currently have a fever: No COWS - Scale Resting Pulse: 0= [place] 80 or Below Sweatin= No chills or Flushing Restless Observation: 0= Sits Still Pupil Size: 0= Normal to Room Light Bone or Joint Aches: 0= None Runny Nose/ Eye Tearin= Nasal Congestion GI Upset > 30mins: 3= Vomiting/Diarrhea Tremor Observation: 2= Slight Tremor Visible Yawning Observation: 0= None Anxiety or Irritability: 0= None Goose Flesh Skin: 0=Smooth Skin COWS Score: 6 CIWA Nausea/Vomitin-Int. Nausea w/Dry Heave Muscle Tremors: 2 Anxiety: 1-Mildly Anxious Agitation: 1-Slight > Activity Paroxysmal Sweats: No Perspiration Orientation: 0-Oriented Tacttile Disturbances: 0-None Auditory Disturbances: 0-None Visual Disturbances: 0-None Headache: 2-Mild CIWA-Ar Total Score: 10
[2020-02-26 16:20] VITALS: BMI 17.9
--- NOTE | 2020-02-26 17:44 | HP ---
COWS - Scale Resting Pulse: 0= [place] 80 or Below Sweatin= Chills/Flushing Restless Observation: 0= Sits Still Pupil Size: 1= Pupils >than Normal Bone or Joint Aches: 2= Severe Diffuse Aches (both legs) Runny Nose/ Eye Tearin= Nasal Congestion GI Upset > 30mins: 3= Vomiting/Diarrhea (vomiting x 2, diarrhea x 3) Tremor Observation: 2= Slight Tremor Visible Yawning Observation: 1= 1-2x During Session Anxiety or Irritability: 2=Irritable/Anxious Goose Flesh Skin: 0=Smooth Skin COWS Score: 13 CIWA Score Nausea/Vomitin-Int. Nausea w/Dry Heave Muscle Tremors: 3 Anxiety: 3 Agitation: 2 Paroxysmal Sweats: 1-Minimal Palms Moist Orientation: 0-Oriented Tacttile Disturbances: 0-None Auditory Disturbances: 0-None Visual Disturbances: 0-None Headache: 2-Mild CIWA-Ar Total Score: 15 - Admission Criteria OASAS Guidelines: Admission for Medically Managed Detox: Requires at least one of the followin. CIWA greater than 12 2. Seizures within the past 24 hours 3. Delirium tremens within the past 24 hours 4. Hallucinations within the past 24 hours 5. Acute intervention needed for co occurring medical disorder 6. Acute intervention needed for co occurring psychiatric disorder 7. Severe withdrawal that cannot be handled at a lower level of care (continued vomiting, continued diarrhea, abnormal vital signs) requiring intravenous medication and/or fluids 8. Admitting History and Physical - Past Medical History ...LMP: 04/28/12 - Past Surgical History Past Surgical History: Yes: Cholecystectomy, Hernia Repair - Smoking History Smoking history: Current every day smoker Have you smoked in the past 12 months: No Aproximately how many cigarettes per day: 6 - Alcohol/Substance Use Hx Alcohol Use: No History of Substance Use: reports: Cocaine, Heroin Admission [facility] Chief Complaint: Heroin and alcohol withdrawal symptoms Allergies/Adverse Reactions: Allergies Allergy/AdvReac Type Severity Reaction Status Date / Time No Known Allergies Allergy Verified 09/24/19 09:24 History of Present Illness: 54 years old female with a long history of alcohol and heroin dependence is seeking admission to detox. Patient's last admission to detox was for the period 09/24/2019-09/29/2019. She reports that she uses 12 bags of heroin daily and drinks 2 pints of vodka daily. She became dependent on both at age 18 and her last use was this morning. She has medical history of HIV+ and denies psych. history and suicidal ideation at this time. She is unemployed, lives in the [place] and denies legal issues. 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 Exam Limitations: Clinical Condition, Physical Impairment - Ebola screening Have you traveled outside of the country in the last 21 days: No Have you had contact with anyone from an Ebola affected area: No Have you been sick,other than usual withdrawal symptoms: No Do you have a fever: No - Review of Systems Constitutional: Chills, Malaise, Night Sweats, Changes in sleep EENT: reports: No Symptoms Reported Respiratory: reports: No Symptoms reported Cardiac: reports: No Symptoms Reported GI: reports: Diarrhea, Nausea, Poor Appetite, Poor Fluid Intake, Vomiting, Abdominal cramping : reports: No Symptoms Reported Musculoskeletal: reports: Muscle Pain, Other (bilateral leg pain) Integumentary: reports: Dryness, Flushing Neuro: reports: Tremors Endocrine: reports: No Symptoms Reported Hematology: reports: No Symptoms Reported Psychiatric: reports: Mood/Affect Appropiate, Orientated x3 Other Systems: Reviewed and Negative Patient History - Patient Medical History Hx Anemia: No Hx Asthma: No Hx Chronic Obstructive Pulmonary Disease (COPD): No Hx Cancer: No Hx Cardiac Disorders: No Hx Congestive Heart Failure: No Hx Hypertension: No Hx Hypercholesterolemia: No Hx Pacemaker: No HX Cerebrovascular Accident: No Hx Seizures: No Hx Dementia: No Hx Diabetes: No Hx Gastrointestinal Disorders: No Hx Liver Disease: No Hx Genitourinary Disorders: No Hx Sexually Transmitted Disorders: No Hx Renal Disease (ESRD): No Hx Thyroid Disease: No Hx Human Immunodeficiency Virus (HIV): Yes (since 1997 Non compliant with meds) Hx Hepatitis C: No Hx Depression: No Hx Suicide Attempt: No (Denies suicidal ideation at this time) Hx Bipolar Disorder: No Hx Schizophrenia: No - Patient Surgical History Past Surgical History: Yes Hx Neurologic Surgery: No Hx Cataract Extraction: No Hx Cardiac Surgery: No Hx Lung Surgery: No Hx Breast Surgery: No Hx Breast Biopsy: No Hx Abdominal Surgery: No Hx Appendectomy: No Hx Cholecystectomy: Yes (in 1988) Hx Genitourinary Surgery: No Hx Section: No Hx Orthopedic Surgery: No Other Surgical History: Incisional hernia repair/ ectopic Anesthesia Reaction: No - PPD History Previous Implant?: Yes Documented Results: Negative w/proof Implanted On Prior [facility] Admission?: Yes Date: 07/14/18 Results: 0mm PPD to be Administered?: Yes - Reproductive History Patient is a Female of Child Bearing Age (11 -55 yrs old): Yes Last Menstrual Period: 04/28/12 - Smoking Cessation Smoking history: Current every day smoker Have you smoked in the past 12 months: No Aproximately how many cigarettes per day: 6 Hx Chewing Tobacco Use: No Initiated information on smoking cessation: Yes 'Breaking Loose' booklet given: 02/26/20 - Substance & Tx. History Hx Alcohol Use: Yes Hx Substance Use: Yes Substance Use Type: Cocaine, Heroin, Opiates Hx Substance Use Treatment: Yes ([facility]) - Substances abused Alcohol Substance route: Oral Frequency: Daily Amount used: 2 pints Age of first use: 18 Date of last use: 02/26/20 Heroin Substance route: Inhalation Frequency: Daily Amount used: 12 bags Age of first use: 18 Date of last use: 02/26/20 Admission Physical Exam S - Vital Signs Vital Signs: Vital Signs - 24 hr 02/26/20 16:18 Temperature 97.8 F Pulse Rate 76 Respiratory 20 Rate Blood Pressure 131/88 - Physical General Appearance: Yes: Moderate Distress, Tremorous, Anxious HEENTM: Yes: Within Normal Limits Respiratory: Yes: Lungs Clear, Normal Breath Sounds, No Respiratory Distress Neck: Yes: Within Normal Limits Breast: Yes: Breast Exam Deferred Cardiology: Yes: Regular Rhythm, Regular Rate Abdominal: Yes: Normal Bowel Sounds Genitourinary: Yes: Within Normal Limits Back: Yes: Normal Inspection Musculoskeletal: Yes: Muscle Pain Extremities: Yes: Tremors Neurological: Yes: Within Normal Limits Integumentary: Yes: Warm Lymphatic: Yes: Within Normal Limits - Diagnostic (1) Dry skin Current Visit: Yes Status: Chronic (2) Cocaine dependence Current Visit: Yes Status: Chronic Qualifiers: Substance use status: uncomplicated Qualified Code(s): F14.20 - Cocaine dependence, uncomplicated (3) HIV (human immunodeficiency virus infection) Current Visit: Yes Status: Chronic Qualifiers: HIV symptom status: unspecified Qualified Code(s): B20 - Human immunodeficiency virus [HIV] disease (4) Nicotine dependence Current Visit: Yes Status: Chronic Qualifiers: Nicotine product type: cigarettes Substance use status: uncomplicated Qualified Code(s): F17.210 - Nicotine dependence, cigarettes, uncomplicated (5) Opioid dependence with withdrawal Current Visit: Yes Status: Acute (6) Alcohol dependence with withdrawal, uncomplicated Current Visit: Yes Status: Acute Cleared for Admission S - Detox or Rehab [facility] Level of Care: Medically Managed Detox Regimen/Protocol: Methadone/Librium Claeared for Rehab Admission: No Breathalyzer - Breathalyzer Breathalyzer: 0 Urine Drug Screen - Test Device Lot number: [id number] Expiration date: 04/18/21 - Control Is test valid?: Yes - Results Drug screen NEGATIVE: No Urine drug screen results: SHIRA-Cocaine, FEN-Fentanyl, MOP-Opiates, BZO- Benzodiazepines Inpatient Rehab Admission - Rehab Decision to Admit Inpatient rehab admission?: No
[2020-02-26] MEDS ORDERED: NICOTINE POLACRILEX 2 MG GUM BUC PRN (18:16)
[2020-02-26] MEDS ORDERED: chlordiazePOXIDE HCL 25 MG CAPSULE PO PRN (18:16)
[2020-02-26] MEDS ORDERED: IBUPROFEN 400 MG TABLET (FP) PO PRN (18:16)
[2020-02-26] MEDS ORDERED: MAGNESIUM HYDROX 2400MG/30ML ORAL SUSPENSION 30 ML CUP PO PRN (18:16)
[2020-02-26] MEDS ORDERED: MENTHOL/PHENOL 1 EACH UD MM PRN (18:16)
[2020-02-26] MEDS ORDERED: cloNIDine HCL 0.1 MG TABLET PO PRN (18:16)
[2020-02-26] MEDS ORDERED: ONDANSETRON *ODT* 4 MG TABLET SL ONE (18:16)
[2020-02-26] MEDS ORDERED: METHADONE HCL 10 MG TABLET (FOR DETOX USE ONLY) PO ONE (18:16)
[2020-02-26] MEDS ORDERED: MAG HYDROX/AL HYDROX/SIMETH 30 ML UNIT-DOSE CUP PO PRN (18:16)
[2020-02-26] MEDS ORDERED: MAGNESIUM CITRATE 300 ML BOTTLE PO PRN (18:16)
[2020-02-26] MEDS ORDERED: METHOCARBAMOL 500 MG TABLET PO PRN (18:16)
[2020-02-26] MEDS ORDERED: ACETAMINOPHEN 325 MG TABLET (FP) PO PRN ×2 (18:16)
[2020-02-26] MEDS ORDERED: BISMUTH SUBSALICYLATE 524 MG/30 ML UD PO PRN (18:16)
[2020-02-26] MEDS: hydrOXYzine PAMOATE 25 MG CAPSULE (FP) PO PRN (20:07)
[2020-02-26] MEDS: THIAMINE HCL 100 MG TABLET (FP) PO SCH (22:26)
[2020-02-26] MEDS: chlordiazePOXIDE HCL 25 MG CAPSULE PO SCH (22:26)
[2020-02-26] MEDS: MELATONIN 5 MG TABLETS PO SCH (22:27)
[2020-02-27] MEDS: hydrOXYzine PAMOATE 25 MG CAPSULE (FP) PO PRN (02:37)
[2020-02-27] MEDS: chlordiazePOXIDE HCL 25 MG CAPSULE PO SCH ×2 (05:58→11:06)
[2020-02-27] MEDS ORDERED: METHADONE HCL 10 MG TABLET (FOR DETOX USE ONLY) ONE (09:18)
[2020-02-27] MEDS ORDERED: METHADONE HCL 5 MG TABLET (FOR DETOX USE ONLY) ONE (09:18)
[2020-02-27] MEDS ORDERED: METHADONE (DETOX) 20 MG, METHADONE (DETOX) 5 MG PO ONE (10:00)
[2020-02-27] MEDS: PRENATAL VITAMINS W/ FOLIC ACID TABLET (FP) PO SCH (11:07)
[2020-02-27] MEDS: NICOTINE 14 MG/24 HOURS TOPICAL PATCH TD SCH (11:11)
[2020-02-27 11:35] LABS: HEMATOCRIT 32.7 % (32.4-45.2); HEMOGLOBIN 11.8 GM/dL (10.7-15.3); MCH 38.6 pg (25.7-33.7); MCHC 36.2 g/dl (32.0-36.0); MEAN CELL VOLUME 106.7 fl (80-96); MEAN PLT VOLUME 9.2 fl (7.5-11.1); PLATELET COUNT 222 K/MM3 (134-434); RBC 3.07 M/mm3 (3.60-5.2); RDW 18.1 % (11.6-15.6); WHITE BLOOD COUNT 2.7 K/mm3 (4.0-10.0)
--- NOTE | 2020-02-27 11:36 | EKG ---
Test Reason : Blood Pressure : / mmHG Vent. Rate : 061 BPM Atrial Rate : 061 BPM P-R Int : 122 ms QRS Dur : 092 ms QT Int : 424 ms P-R-T Axes : 041 001 004 degrees QTc Int : 426 ms NORMAL SINUS RHYTHM MINIMAL VOLTAGE CRITERIA FOR LVH, MAY BE NORMAL VARIANT BORDERLINE ECG WHEN COMPARED WITH ECG OF 24-SEP-2019 03:26, INVERTED T WAVES HAVE REPLACED NONSPECIFIC T WAVE ABNORMALITY IN INFERIOR LEADS Confirmed by MINERVA SHARMA MD ([id number]) on 02/27/2020 11:36:09 AM Referred By: Confirmed By:MINERVA SHARMA MD
[2020-02-27 11:46] LABS: ALBUMIN 2.7 g/dl (3.4-5.0); BILIRUBIN,TOTAL 0.3 mg/dL (0.2-1); BLOOD UREA NITROGEN 25.5 mg/dL (7-18); CALCIUM 8.5 mg/dL (8.5-10.1); CREATININE 1.1 mg/dL (0.55-1.3); POTASSIUM 4.2 mmol/L (3.5-5.1); TOT PROT 7.5 g/dl (6.4-8.2)
[2020-02-27] MEDS ORDERED: LORazepam 1 MG TABLET PO PRN (13:44)
--- NOTE | 2020-02-27 13:47 | PN ---
[facility] CIWA - CIWA Score Nausea/Vomitin-No Nausea/No Vomiting Muscle Tremors: None Anxiety: 3 Agitation: 2 Paroxysmal Sweats: 3 Orientation: 0-Oriented Tacttile Disturbances: 0-None Auditory Disturbances: 0-None Visual Disturbances: 0-None Headache: 2-Mild CIWA-Ar Total Score: 10 S COWS - Scale Resting Pulse: 0= [place] 80 or Below Sweatin= Beads of Sweat on Face Restless Observation: 1= Difficult to Sit Still Pupil Size: 0= Normal to Room Light Bone or Joint Aches: 2= Severe Diffuse Aches Runny Nose/ Eye Tearin= None GI Upset > 30mins: 0= None Tremor Observation of Outstretched Hands: 0= None Yawning Observation: 1= 1-2x During Session Anxiety or Irritability: 2=Irritable/Anxious Goose Flesh Skin: 0=Smooth Skin COWS Score: 9 [facility] Progress Note (SOAP) Subjective: c/o anxiety, sweats, headache, and muscle aches. Objective: 02/27/20 13:37 Vital Signs 02/27/20 02/27/20 02/27/20 06:29 08:50 13:06 Temperature 97.3 F L 97.8 F 97.9 F Pulse Rate 67 60 70 Respiratory 16 18 18 Rate Blood Pressure 104/70 108/74 106/71 O2 Sat by Pulse 98 98 Oximetry (%) Laboratory Last Values WBC 2.7 K/mm3 (4.0-10.0) L 02/27/20 07:55 RBC 3.07 M/mm3 (3.60-5.2) L 02/27/20 07:55 Hgb 11.8 GM/dL (10.7-15.3) 02/27/20 07:55 Hct 32.7 % (32.4-45.2) 02/27/20 07:55 MCV 106.7 fl (80-96) H 02/27/20 07:55 MCH 38.6 pg (25.7-33.7) H D 02/27/20 07:55 MCHC 36.2 g/dl (32.0-36.0) H 02/27/20 07:55 RDW 18.1 % (11.6-15.6) H 02/27/20 07:55 Plt Count 222 K/MM3 (134-434) D 02/27/20 07:55 MPV 9.2 fl (7.5-11.1) 02/27/20 07:55 Sodium 140 mmol/L (136-145) 02/27/20 07:55 Potassium 4.2 mmol/L (3.5-5.1) 02/27/20 07:55 Chloride 110 mmol/L (98-107) H 02/27/20 07:55 Carbon Dioxide 25 mmol/L (21-32) 02/27/20 07:55 Anion Gap 4 MMOL/L (8-16) L 02/27/20 07:55 BUN 25.5 mg/dL (7-18) H 02/27/20 07:55 Creatinine 1.1 mg/dL (0.55-1.3) 02/27/20 07:55 Est GFR (CKD-EPI)AfAm 65.92 02/27/20 07:55 Est GFR (CKD-EPI)NonAf 56.87 02/27/20 07:55 Random Glucose 127 mg/dL (74-106) H 02/27/20 07:55 Calcium 8.5 mg/dL (8.5-10.1) 02/27/20 07:55 Total Bilirubin 0.3 mg/dL (0.2-1) 02/27/20 07:55 AST 115 U/L (15-37) H 02/27/20 07:55 ALT 228 U/L (13-61) H 02/27/20 07:55 Alkaline Phosphatase 96 U/L (45-117) 02/27/20 07:55 Total Protein 7.5 g/dl (6.4-8.2) 02/27/20 07:55 Albumin 2.7 g/dl (3.4-5.0) L 02/27/20 07:55 Syphilis Serology Non-reactive (NONREACTIVE) 02/27/20 07:55 Labs noted with elevated AST/ALT. Assessment: 02/27/20 13:38 AOx 3, in no acute respiratory distress. Full ROM, ambulating in the unit. Withdrawal symptoms. Elevated liver enzymes. Plan: Continue detox and change librium protocol to ativan protocol.
[2020-02-27] MEDS ORDERED: LORazepam 2 MG TABLET PO SCH (17:00)
[2020-02-27] MEDS: LORazepam 1 MG TABLET PO SCH ×2 (18:12→22:23)
[2020-02-27] MEDS: THIAMINE HCL 100 MG TABLET (FP) PO SCH (22:23)
[2020-02-27] MEDS: MELATONIN 5 MG TABLETS PO SCH (22:23)
[2020-02-28] MEDS ORDERED: chlordiazePOXIDE HCL 25 MG CAPSULE PO SCH (05:00)
[2020-02-28] MEDS: LORazepam 1 MG TABLET PO SCH ×4 (05:54→22:05)
[2020-02-28] MEDS ORDERED: METHADONE HCL 10 MG TABLET (FOR DETOX USE ONLY) PO ONE (10:00)
[2020-02-28] MEDS: NICOTINE 14 MG/24 HOURS TOPICAL PATCH TD SCH (10:26)
[2020-02-28] MEDS: PRENATAL VITAMINS W/ FOLIC ACID TABLET (FP) PO SCH (10:26)
[2020-02-28] MEDS ORDERED: MASKS NR ONE (10:39)
--- NOTE | 2020-02-28 10:43 | PN ---
S CIWA - CIWA Score Nausea/Vomitin-Mild Nausea/No Vomiting Muscle Tremors: 3 Anxiety: 2 Agitation: 0-Normal Activity Paroxysmal Sweats: No Perspiration Orientation: 0-Oriented Tacttile Disturbances: 0-None Auditory Disturbances: 0-None Visual Disturbances: 2-Mild Sensitivity Headache: 0-None Present CIWA-Ar Total Score: 8 [facility] COWS - Scale Resting Pulse: 0= [place] 80 or Below Sweatin= No chills or Flushing Restless Observation: 0= Sits Still Pupil Size: 1= Pupils >than Normal Bone or Joint Aches: 1= Mild Discomfort Runny Nose/ Eye Tearin= Nasal Congestion GI Upset > 30mins: 2= Nausea/Diarrhea Tremor Observation of Outstretched Hands: 2= Slight Tremor Visible Yawning Observation: 0= None Anxiety or Irritability: 1=Feels Anxious/Irritable Goose Flesh Skin: 0=Smooth Skin COWS Score: 8 [facility] Progress Note (SOAP) Subjective: 54 years old female admitted on 02/26/20 for alcohol and opiate withdrawal sx management treating with ativan and methadone regiments feeling tired sitting on the edge of the bed eating breakfast tolerated food well Objective: 02/28/20 10:46 Vital Signs - 24 hr 02/27/20 02/27/20 02/27/20 13:06 16:32 20:58 Temperature 97.9 F 97.3 F L 97.3 F L Pulse Rate 70 70 61 Respiratory 18 18 16 Rate Blood Pressure 106/71 99/69 116/68 O2 Sat by Pulse 98 100 Oximetry (%) 02/28/20 02/28/20 06:27 08:48 Temperature 97.7 F 97.1 F L Pulse Rate 66 69 Respiratory 16 18 Rate Blood Pressure 124/75 120/81 O2 Sat by Pulse 99 Oximetry (%) Laboratory Tests 02/27/20 02/27/20 02/27/20 07:55 07:55 07:55 WBC 2.7 L RBC 3.07 L Hgb 11.8 Hct 32.7 MCV 106.7 H MCH 38.6 H D MCHC 36.2 H RDW 18.1 H Plt Count 222 D MPV 9.2 Sodium 140 Potassium 4.2 Chloride 110 H Carbon Dioxide 25 Anion Gap 4 L BUN 25.5 H Creatinine 1.1 Est GFR (CKD-EPI)AfAm 65.92 Est GFR (CKD-EPI)NonAf 56.87 Random Glucose 127 H Calcium 8.5 Total Bilirubin 0.3 AST 115 H ALT 228 H Alkaline Phosphatase 96 Total Protein 7.5 Albumin 2.7 L Syphilis Serology Non-reactive bun + ast elevation 02/28/20 10:47 lab noted Assessment: 02/28/20 10:47 alcohol and opiate withdrawal Plan: ativan and methadone regiments
[2020-02-28] MEDS: THIAMINE HCL 100 MG TABLET (FP) PO SCH (22:04)
[2020-02-28] MEDS: MELATONIN 5 MG TABLETS PO SCH (22:04)
[2020-02-29] MEDS ORDERED: chlordiazePOXIDE HCL 10 MG CAPSULE PO PRN
[2020-02-29] MEDS ORDERED: chlordiazePOXIDE HCL 10 MG CAPSULE PO SCH (05:00)
[2020-02-29] MEDS: LORazepam 0.5 MG TABLET PO SCH ×4 (05:38→22:09)
[2020-02-29] MEDS ORDERED: METHADONE HCL 5 MG TABLET (FOR DETOX USE ONLY) ONE (09:41)
[2020-02-29] MEDS ORDERED: METHADONE HCL 10 MG TABLET (FOR DETOX USE ONLY) ONE (09:41)
[2020-02-29] MEDS ORDERED: METHADONE (DETOX) 10 MG, METHADONE (DETOX) 5 MG PO ONE (10:00)
[2020-02-29] MEDS: PRENATAL VITAMINS W/ FOLIC ACID TABLET (FP) PO SCH (10:16)
[2020-02-29] MEDS: NICOTINE 14 MG/24 HOURS TOPICAL PATCH TD SCH (10:17)
--- NOTE | 2020-02-29 12:00 | PN ---
S CIWA - CIWA Score Nausea/Vomitin-Mild Nausea/No Vomiting Muscle Tremors: 1-None Visible, but [place] Anxiety: 1-Mildly Anxious Agitation: 0-Normal Activity Paroxysmal Sweats: No Perspiration Orientation: 0-Oriented Tacttile Disturbances: 0-None Auditory Disturbances: 0-None Visual Disturbances: 2-Mild Sensitivity Headache: 0-None Present CIWA-Ar Total Score: 5 [facility] COWS - Scale Resting Pulse: 0= [place] 80 or Below Sweatin= No chills or Flushing Restless Observation: 0= Sits Still Pupil Size: 1= Pupils >than Normal Bone or Joint Aches: 1= Mild Discomfort Runny Nose/ Eye Tearin= None GI Upset > 30mins: 1= Stomach Cramp Tremor Observation of Outstretched Hands: 1= Tremor [place], Not Seen Yawning Observation: 0= None Anxiety or Irritability: 1=Feels Anxious/Irritable Goose Flesh Skin: 0=Smooth Skin COWS Score: 5 S Progress Note (SOAP) Subjective: 54 years old female admitted on 02/26/20 for alcohol and opiate withdrawal sx management treating with ativan and methadone detox regiments feeling better today ambulating on hallway with cane slow steady alert oriented x 3 received counselor requests of cd4 and hiv virus load for aftercare referral agency due to detox facility does not monitoring hiv nor follow up infectious disease ARV treatment hold cd4 and hiv virus load count Objective: 02/29/20 12:00 Vital Signs - 24 hr 02/28/20 02/28/20 02/29/20 17:27 20:26 06:09 Temperature 97.7 F 97.7 F 97.1 F L Pulse Rate 69 100 H 70 Respiratory 16 16 16 Rate Blood Pressure 118/77 132/90 125/74 O2 Sat by Pulse 98 97 100 Oximetry (%) 02/29/20 02/29/20 09:12 10:00 Temperature 97.2 F L Pulse Rate 71 Respiratory 18 Rate Blood Pressure 106/69 O2 Sat by Pulse Oximetry (%) Laboratory Tests 02/26/20 02/26/20 02/27/20 16:20 19:10 07:55 WBC RBC Hgb Hct MCV MCH MCHC RDW Plt Count MPV Sodium Potassium Chloride Carbon Dioxide Anion Gap BUN Creatinine Est GFR (CKD-EPI)AfAm Est GFR (CKD-EPI)NonAf Random Glucose Calcium Total Bilirubin AST ALT Alkaline Phosphatase Total Protein Albumin POC Urine HCG, Qual Negative Syphilis Serology Non-reactive COVID-19 ([facility]) Not detected 02/27/20 02/27/20 07:55 07:55 WBC 2.7 L RBC 3.07 L Hgb 11.8 Hct 32.7 MCV 106.7 H MCH 38.6 H D MCHC 36.2 H RDW 18.1 H Plt Count 222 D MPV 9.2 Sodium 140 Potassium 4.2 Chloride 110 H Carbon Dioxide 25 Anion Gap 4 L BUN 25.5 H Creatinine 1.1 Est GFR (CKD-EPI)AfAm 65.92 Est GFR (CKD-EPI)NonAf 56.87 Random Glucose 127 H Calcium 8.5 Total Bilirubin 0.3 AST 115 H ALT 228 H Alkaline Phosphatase 96 Total Protein 7.5 Albumin 2.7 L POC Urine HCG, Qual Syphilis Serology COVID-19 ([facility]) 02/29/20 12:03 fasting glucose repeat bun repeat ast Assessment: 02/29/20 12:07 alcohol and opiate withdrawal Plan: ativan and methadone regiments
[2020-02-29] MEDS: THIAMINE HCL 100 MG TABLET (FP) PO SCH (21:21)
[2020-02-29] MEDS: MELATONIN 5 MG TABLETS PO SCH (23:11)
[2020-03-01] MEDS ORDERED: LORazepam 0.5 MG TABLET PO PRN
[2020-03-01] MEDS ORDERED: LORazepam 0.5 MG TABLET PO ONE (05:00)
[2020-03-01] MEDS ORDERED: chlordiazePOXIDE HCL 10 MG CAPSULE PO SCH (05:00)
[2020-03-01] MEDS ORDERED: METHADONE HCL 10 MG TABLET (FOR DETOX USE ONLY) PO ONE (10:00)
[2020-03-01] MEDS: PRENATAL VITAMINS W/ FOLIC ACID TABLET (FP) PO SCH (10:27)
--- NOTE | 2020-03-01 10:50 | PN ---
S CIWA - CIWA Score Nausea/Vomitin-Mild Nausea/No Vomiting Muscle Tremors: 1-None Visible, but [place] Anxiety: 1-Mildly Anxious Agitation: 0-Normal Activity Paroxysmal Sweats: No Perspiration Orientation: 0-Oriented Tacttile Disturbances: 0-None Auditory Disturbances: 0-None Visual Disturbances: 0-None Headache: 0-None Present CIWA-Ar Total Score: 3 S COWS - Scale Resting Pulse: 0= [place] 80 or Below Sweatin= No chills or Flushing Restless Observation: 0= Sits Still Pupil Size: 0= Normal to Room Light Bone or Joint Aches: 1= Mild Discomfort Runny Nose/ Eye Tearin= None GI Upset > 30mins: 0= None Tremor Observation of Outstretched Hands: 1= Tremor [place], Not Seen Yawning Observation: 0= None Anxiety or Irritability: 1=Feels Anxious/Irritable Goose Flesh Skin: 0=Smooth Skin COWS Score: 3 S Progress Note (SOAP) Subjective: 54 years old female admitted on 02/26/20 for alcohol and opiate withdrawal sx management treating with ativan and methadone detox regiments observed mr aviles sitting on the edge of the bed eating breakfast no trouble chewing nor swallowing tolerated food well ambulating from room to telephone room to counselor without cane steady gaits alert oriented x 3 Objective: 03/01/20 10:49 Vital Signs - 24 hr 02/29/20 02/29/20 02/29/20 12:44 14:13 16:51 Temperature 98.0 F 98.2 F Pulse Rate 79 76 Respiratory 18 18 Rate Blood Pressure 141/94 115/72 O2 Sat by Pulse 98 Oximetry (%) 02/29/20 02/29/20 03/01/20 21:05 23:14 05:52 Temperature 100.4 F H 98.4 F 98 F Pulse Rate 91 H 67 Respiratory 18 18 Rate Blood Pressure 122/98 122/73 O2 Sat by Pulse 99 100 Oximetry (%) 03/01/20 08:35 Temperature 97.1 F L Pulse Rate 70 Respiratory 18 Rate Blood Pressure 113/68 O2 Sat by Pulse Oximetry (%) Laboratory Tests 02/26/20 02/26/20 02/27/20 16:20 19:10 07:55 WBC RBC Hgb Hct MCV MCH MCHC RDW Plt Count MPV Sodium Potassium Chloride Carbon Dioxide Anion Gap BUN Creatinine Est GFR (CKD-EPI)AfAm Est GFR (CKD-EPI)NonAf Random Glucose Calcium Total Bilirubin AST ALT Alkaline Phosphatase Total Protein Albumin POC Urine HCG, Qual Negative Syphilis Serology Non-reactive COVID-19 ([facility]) Not detected 02/27/20 02/27/20 07:55 07:55 WBC 2.7 L RBC 3.07 L Hgb 11.8 Hct 32.7 MCV 106.7 H MCH 38.6 H D MCHC 36.2 H RDW 18.1 H Plt Count 222 D MPV 9.2 Sodium 140 Potassium 4.2 Chloride 110 H Carbon Dioxide 25 Anion Gap 4 L BUN 25.5 H Creatinine 1.1 Est GFR (CKD-EPI)AfAm 65.92 Est GFR (CKD-EPI)NonAf 56.87 Random Glucose 127 H Calcium 8.5 Total Bilirubin 0.3 AST 115 H ALT 228 H Alkaline Phosphatase 96 Total Protein 7.5 Albumin 2.7 L POC Urine HCG, Qual Syphilis Serology COVID-19 ([facility]) bun ast fasting pending 03/01/20 10:49 Assessment: 03/01/20 10:50 alcohol and opiate withdrawal Plan: ativan and methadone regiment
[2020-03-01] MEDS: NICOTINE 14 MG/24 HOURS TOPICAL PATCH TD SCH (10:51)
[2020-03-01 12:03] LABS: BLOOD UREA NITROGEN 27.9 mg/dL (7-18)
[2020-03-01] MEDS: MELATONIN 5 MG TABLETS PO SCH (22:23)
[2020-03-01] MEDS: THIAMINE HCL 100 MG TABLET (FP) PO SCH (22:23)
[2020-03-02] MEDS ORDERED: chlordiazePOXIDE HCL 10 MG CAPSULE PO ONE (05:00)
[2020-03-02] MEDS ORDERED: METHADONE HCL 5 MG TABLET (FOR DETOX USE ONLY) PO ONE (06:00)
[2020-03-02 08:59] VITALS: BP 106/63; PULSE 68; TEMP 96.8
[2020-03-02] MEDS: PRENATAL VITAMINS W/ FOLIC ACID TABLET (FP) PO SCH (09:41)
[2020-03-02] MEDS: NICOTINE 14 MG/24 HOURS TOPICAL PATCH TD SCH (09:42)
--- NOTE | 2020-03-02 11:44 | DS ---
[facility] Detox Discharge Summary Admission Date: 02/26/20 Discharge Date: 03/02/20 - History Present History: Alcohol Dependence, Opioid Dependence Additional Comments: 54 years old female admitted on 02/26/20 for alcohol and opiate withdrawal sx management treated with ativan and methadone detox regiments ms aviles has completed the ativan and methadone regiments and is tolerated well alert oriented x 3 speech coherently ambulating with cane slow steady cardiac [id number] regular rate rhythm respiratory clear lung sounds bilaterally on auscultation smoker's cough with yellow flame skin warm and dry Pertinent Past History: time for discharge 35 minutes - Physical Exam Results Vital Signs: Vital Signs Temperature 96.8 F L 03/02/20 08:40 Pulse Rate 68 03/02/20 08:40 Respiratory Rate 18 03/02/20 08:40 Blood Pressure 106/63 03/02/20 08:40 O2 Sat by Pulse Oximetry (%) 97 03/02/20 08:40 Pertinent Admission Physical Exam Findings: alcohol and opiate withdrawal Laboratory Tests 02/26/20 02/26/20 02/27/20 16:20 19:10 07:55 WBC RBC Hgb Hct MCV MCH MCHC RDW Plt Count MPV Sodium Potassium Chloride Carbon Dioxide Anion Gap BUN Creatinine Est GFR (CKD-EPI)AfAm Est GFR (CKD-EPI)NonAf Random Glucose Fasting Glucose Calcium Total Bilirubin AST ALT Alkaline Phosphatase Total Protein Albumin POC Urine HCG, Qual Negative Syphilis Serology Non-reactive COVID-19 ([facility]) Not detected 02/27/20 02/27/20 03/01/20 07:55 07:55 08:15 WBC 2.7 L RBC 3.07 L Hgb 11.8 Hct 32.7 MCV 106.7 H MCH 38.6 H D MCHC 36.2 H RDW 18.1 H Plt Count 222 D MPV 9.2 Sodium 140 Potassium 4.2 Chloride 110 H Carbon Dioxide 25 Anion Gap 4 L BUN 25.5 H 27.9 H Creatinine 1.1 Est GFR (CKD-EPI)AfAm 65.92 Est GFR (CKD-EPI)NonAf 56.87 Random Glucose 127 H Fasting Glucose 69 L Calcium 8.5 Total Bilirubin 0.3 AST 115 H 168 H ALT 228 H Alkaline Phosphatase 96 Total Protein 7.5 Albumin 2.7 L POC Urine HCG, Qual Syphilis Serology COVID-19 ([facility]) bun ast elevation - Treatment Hospital Course: Detox Protocol Followed, Detoxed Safely, Responded well, Discharged Condition Good, Rehab Referral Accepted Patient has Accepted [facility] - Medication Discharge Medications: Ambulatory Orders Naloxone HCl [Narcan] 4 mg NS ASDIR PRN #1 spray 03/01/20 - Diagnosis (1) Alcohol dependence with withdrawal, uncomplicated Status: Acute (2) Opioid dependence with withdrawal Status: Acute (3) Weight loss Status: Chronic (4) HIV (human immunodeficiency virus infection) Status: Chronic Qualifiers: HIV symptom status: asymptomatic Qualified Code(s): Z21 - Asymptomatic human immunodeficiency virus [HIV] infection status (5) Nicotine dependence Status: Acute Qualifiers: Nicotine product type: cigarettes Substance use status: in withdrawal Qualified Code(s): F17.213 - Nicotine dependence, cigarettes, with withdrawal (6) Ambulates with cane Status: Chronic - AMA Did Patient Leave Against Medical Advice: No CIWA Score - CIWA Score Nausea/Vomitin-No Nausea/No Vomiting Muscle Tremors: 1-None Visible, but [place] Anxiety: 0-No Anxiety, at Ease Agitation: 0-Normal Activity Paroxysmal Sweats: No Perspiration Orientation: 0-Oriented Tacttile Disturbances: 0-None Auditory Disturbances: 0-None Visual Disturbances: 0-None Headache: 0-None Present CIWA-Ar Total Score: 1 COWS (PN) - Opiate Withdrawal Resting Pulse: 0= [place] 80 or Below Sweatin= No chills or Flushing Restless Observation: 0= Sits Still Pupil Size: 0= Normal to Room Light Bone or Joint Aches: 0= None Runny Nose/ Eye Tearin= None GI Upset > 30mins: 0= None Tremor Observation of Outstretched Hands: 1= Tremor [place], Not Seen Yawning Observation: 0= None Anxiety or Irritability: 0= None Goose Flesh Skin: 0=Smooth Skin COWS Score: 1
== END 2020-03-02 10:25 | disposition other institution (70) | DRG 773 ==
LOC: YASAS 14:55 → Y3N 19:04
PROVIDERS: ADMIT Allergy & Immunology; ATTEND Allergy & Immunology
PROC: HZ2ZZZZ Detoxification Services for Substance Abuse Treatment (ICD-10-PCS; principal; 2020-02-26)
DX: F10.230 Alcohol dependence with withdrawal, uncomplicated (principal); F11.23 Opioid dependence with withdrawal; F14.20 Cocaine dependence, uncomplicated; F17.210 Nicotine dependence, cigarettes, uncomplicated; Z21 Asymptomatic human immunodeficiency virus [HIV] infection status; L85.3 Xerosis cutis; M79.18 Myalgia, other site; R74.0 Nonspecific elevation of levels of transaminase and lactic acid dehydrogenase [LDH]; R63.4 Abnormal weight loss; Z68.1 Body mass index [BMI] 19.9 or less, adult; Z99.89 Dependence on other enabling machines and devices; Z98.890 Other specified postprocedural states; Z90.49 Acquired absence of other specified parts of digestive tract
CPT/HCPCS: 36415; 80053; 81025; 82947; 84450; 84520; 85027; 86780; 93005; 93010; J0735; U0003

== ENCOUNTER 2020-03-02 10:37 | Inpatient (IN) | payer OTHER ==
[2020-03-02] MEDS ORDERED: P-EPHED 60MG/TRIPROLIDI 2.5MG TABLET PO PRN (11:49)
[2020-03-02] MEDS ORDERED: ACETAMINOPHEN 325 MG TABLET (FP) PO PRN (11:49)
[2020-03-02] MEDS ORDERED: NICOTINE POLACRILEX 2 MG GUM BUC PRN (11:49)
[2020-03-02] MEDS ORDERED: MAGNESIUM HYDROX 2400MG/30ML ORAL SUSPENSION 30 ML CUP PO PRN (11:49)
[2020-03-02] MEDS ORDERED: MAGNESIUM CITRATE 300 ML BOTTLE PO PRN (11:49)
[2020-03-02] MEDS ORDERED: LOPERAMIDE HCL 2 MG CAPSULE PO PRN (11:49)
--- NOTE | 2020-03-02 11:49 | HP ---
[facility] Rehab Assess/Revision - Admission History Admitted to Rehab from: [facility] Date of Admission to Rehab: 03/02/20 - Vital signs Vital Signs: Vital Signs Period Temp Pulse Resp BP Sys/Gaines Pulse Ox Last 24 Hr 98 F 69 18 116/96 - Findings Detox History & Physical reviewed: Yes Concur with findings: Yes Comments/Additional Findings: transferred from detox to rehab admission as per protocol Inpatient Rehab Admission - Rehab Decision to Admit Inpatient rehab admission?: Yes - Initial Determination Are CD services needed?: Yes Free of communicable disease: Yes Not in need of hospitalization: Yes - Rehab Admission Criteria Previous failed treatment: Yes Poor recovery environment: Yes Comorbidities: Yes Lacks judgement: Yes Patient is meeting Inpatient Rehab admission criteria:: Yes
[2020-03-02] MEDS: hydrOXYzine PAMOATE 25 MG CAPSULE (FP) PO SCH ×3 (14:15→21:49)
[2020-03-02] MEDS: MELATONIN 5 MG TABLETS PO SCH (21:49)
[2020-03-02] MEDS: THIAMINE HCL 100 MG TABLET (FP) PO SCH (21:49)
[2020-03-03] MEDS: hydrOXYzine PAMOATE 25 MG CAPSULE (FP) PO SCH (06:49)
[2020-03-03] MEDS: PRENATAL VITAMINS W/ FOLIC ACID TABLET (FP) PO SCH (09:40)
[2020-03-03] MEDS: NICOTINE 14 MG/24 HOURS TOPICAL PATCH TD SCH (09:40)
[2020-03-03] MEDS ORDERED: PT OWN MED DRAWER 7, Y5N ONE (11:00)
[2020-03-03 11:21] LABS: BLOOD UREA NITROGEN 23.3 mg/dL (7-18)
--- NOTE | 2020-03-03 14:00 | PN ---
[facility] Progress Note Note: Laboratory Last Values BUN 23.3 mg/dL (7-18) H 03/03/20 07:50 AST 168 U/L (15-37) H 03/03/20 07:50 Vital Signs Period Temp Pulse Resp BP Sys/Gaines Pulse Ox Last 24 Hr 97.7 F-97.8 F 77 18 117/74 98-98 patient with elevated BUN, AST. Asymptomatic. Elevated BUN most likely related to decreased kidney function as a result of HIV, AST may be related to opiate use effect on liver function. Will repeat labs. Encourage patient to increase fluids.
[2020-03-03] MEDS: MELATONIN 5 MG TABLETS PO SCH (21:56)
[2020-03-03] MEDS: THIAMINE HCL 100 MG TABLET (FP) PO SCH (21:56)
[2020-03-04] MEDS: PRENATAL VITAMINS W/ FOLIC ACID TABLET (FP) PO SCH (10:41)
[2020-03-04] MEDS: NICOTINE 14 MG/24 HOURS TOPICAL PATCH TD SCH (10:41)
[2020-03-04] MEDS: guaiFENesin 200 MG/10 ML 10 ML UNIT-DOSE CUPS PO PRN (12:27)
[2020-03-04] MEDS: THIAMINE HCL 100 MG TABLET (FP) PO SCH (22:01)
[2020-03-04] MEDS: MELATONIN 5 MG TABLETS PO SCH (22:01)
[2020-03-05] MEDS: guaiFENesin 200 MG/10 ML 10 ML UNIT-DOSE CUPS PO PRN (10:26)
[2020-03-05] MEDS: NICOTINE 14 MG/24 HOURS TOPICAL PATCH TD SCH (10:26)
[2020-03-05] MEDS: PRENATAL VITAMINS W/ FOLIC ACID TABLET (FP) PO SCH (10:26)
[2020-03-05] MEDS: THIAMINE HCL 100 MG TABLET (FP) PO SCH (21:53)
[2020-03-05] MEDS: MELATONIN 5 MG TABLETS PO SCH (21:53)
[2020-03-06] MEDS: NICOTINE 14 MG/24 HOURS TOPICAL PATCH TD SCH (10:30)
[2020-03-06] MEDS: PRENATAL VITAMINS W/ FOLIC ACID TABLET (FP) PO SCH (10:30)
[2020-03-06] MEDS: THIAMINE HCL 100 MG TABLET (FP) PO SCH (22:00)
[2020-03-06] MEDS: MELATONIN 5 MG TABLETS PO SCH (22:00)
[2020-03-07] MEDS: NICOTINE 14 MG/24 HOURS TOPICAL PATCH TD SCH (10:34)
[2020-03-07] MEDS: PRENATAL VITAMINS W/ FOLIC ACID TABLET (FP) PO SCH (10:34)
[2020-03-07] MEDS: MELATONIN 5 MG TABLETS PO SCH (21:43)
[2020-03-07] MEDS: THIAMINE HCL 100 MG TABLET (FP) PO SCH (21:43)
[2020-03-08] MEDS: PRENATAL VITAMINS W/ FOLIC ACID TABLET (FP) PO SCH (10:42)
[2020-03-08] MEDS: NICOTINE 14 MG/24 HOURS TOPICAL PATCH TD SCH (10:42)
[2020-03-08] MEDS: guaiFENesin 200 MG/10 ML 10 ML UNIT-DOSE CUPS PO PRN (10:43)
[2020-03-08] MEDS: IBUPROFEN 400 MG TABLET (FP) PO PRN (15:55)
[2020-03-08] MEDS: MAG HYDROX/AL HYDROX/SIMETH 30 ML UNIT-DOSE CUP PO PRN (16:39)
[2020-03-08] MEDS: THIAMINE HCL 100 MG TABLET (FP) PO SCH (21:16)
[2020-03-08] MEDS: MELATONIN 5 MG TABLETS PO SCH (21:16)
[2020-03-09] MEDS: guaiFENesin 200 MG/10 ML 10 ML UNIT-DOSE CUPS PO PRN (10:13)
[2020-03-09] MEDS: PRENATAL VITAMINS W/ FOLIC ACID TABLET (FP) PO SCH (10:13)
[2020-03-09] MEDS: NICOTINE 14 MG/24 HOURS TOPICAL PATCH TD SCH (10:13)
[2020-03-09] MEDS: MAG HYDROX/AL HYDROX/SIMETH 30 ML UNIT-DOSE CUP PO PRN (17:03)
[2020-03-09] MEDS: MELATONIN 5 MG TABLETS PO SCH (23:04)
[2020-03-09] MEDS: THIAMINE HCL 100 MG TABLET (FP) PO SCH (23:05)
--- NOTE | 2020-03-10 10:25 | PN ---
[facility] Progress Note (SOAP) Subjective: Patient wants to know about liver enzymes. Also c/o left knee pain since being in rehab. No hx of falls in rehab. HPI: 54 years old female with a long history of alcohol and heroin dependence. Patient's last admission to detox was for the period 09/24/2019-09/29/2019. She reports that she uses 12 bags of heroin daily and drinks 2 pints of vodka daily. She became dependent on both at age 18. She has medical history of HIV, HEP B. PCP stopped HIV medications (odesfey & Tivicay) r/t elevated liver enzymes. Objective: 03/10/20 10:27 Laboratory Last Values BUN 23.3 mg/dL (7-18) H 03/03/20 07:50 AST 168 U/L (15-37) H 03/03/20 07:50 03/10/20 10:29 P/E: General: no apparent distress. HEENTM: EOMI, PERRLA, sclera-clear Neck: supple ABD: +BS, Liver non-tender to palpation MSK: Left knee with bulge on lateral aspect, spongy, non-tender to palpation, hard, bony prominence on inner aspect of L knee appears swollen. Skin: color consistent throughout trunk and extremities 03/10/20 10:30 Assessment: elevated liver enzymes left knee swelling 03/10/20 10:33 Plan: Liver enzymes: encouraged patient to increase fluid intake, follow up with PCP upon discharge. Will order CMP Knee swelling: myles bandage, lidoderm patch, and anamaria-sanon ordered. Encouraged patient to take motrin as ordered. Will continue to monitor.
[2020-03-10] MEDS: NICOTINE 14 MG/24 HOURS TOPICAL PATCH TD SCH (10:38)
[2020-03-10] MEDS: PRENATAL VITAMINS W/ FOLIC ACID TABLET (FP) PO SCH (10:55)
[2020-03-10] MEDS: IBUPROFEN 400 MG TABLET (FP) PO PRN (12:11)
[2020-03-10] MEDS: LIDOCAINE 5% TOPICAL PATCH TP SCH (12:12)
[2020-03-10] MEDS: METHYL SALICYLATE/MENTHOL OINT 30 GM TUBE TP SCH (21:55)
[2020-03-10] MEDS: THIAMINE HCL 100 MG TABLET (FP) PO SCH (21:56)
[2020-03-10] MEDS: MELATONIN 5 MG TABLETS PO SCH (21:56)
[2020-03-10] MEDS: LIDOCAINE PATCH REMOVAL MC SCH (21:56)
[2020-03-11] MEDS: PRENATAL VITAMINS W/ FOLIC ACID TABLET (FP) PO SCH (09:52)
[2020-03-11] MEDS: METHYL SALICYLATE/MENTHOL OINT 30 GM TUBE TP SCH (09:52)
[2020-03-11] MEDS: LIDOCAINE 5% TOPICAL PATCH TP SCH (09:52)
[2020-03-11] MEDS: NICOTINE 14 MG/24 HOURS TOPICAL PATCH TD SCH (09:54)
[2020-03-11 10:29] LABS: BLOOD UREA NITROGEN 20.1 mg/dL (7-18); CALCIUM 8.7 mg/dL (8.5-10.1); CREATININE 0.8 mg/dL (0.55-1.3); POTASSIUM 4.5 mmol/L (3.5-5.1)
[2020-03-11] MEDS: MELATONIN 5 MG TABLETS PO SCH (21:18)
[2020-03-11] MEDS: THIAMINE HCL 100 MG TABLET (FP) PO SCH (21:18)
[2020-03-11] MEDS: hydrOXYzine PAMOATE 25 MG CAPSULE (FP) PO PRN (21:18)
[2020-03-11] MEDS: LIDOCAINE PATCH REMOVAL MC SCH (21:18)
[2020-03-12] MEDS ORDERED: PT OWN MED DRAWER 7, Y5N ONE (08:54)
[2020-03-12] MEDS: PRENATAL VITAMINS W/ FOLIC ACID TABLET (FP) PO SCH (10:57)
[2020-03-12] MEDS: NICOTINE 14 MG/24 HOURS TOPICAL PATCH TD SCH (10:57)
[2020-03-12] MEDS: LIDOCAINE 5% TOPICAL PATCH TP SCH (10:57)
[2020-03-12] MEDS: METHYL SALICYLATE/MENTHOL OINT 30 GM TUBE TP SCH (10:57)
[2020-03-12] MEDS: THIAMINE HCL 100 MG TABLET (FP) PO SCH (21:45)
[2020-03-12] MEDS: LIDOCAINE PATCH REMOVAL MC SCH (21:45)
[2020-03-12] MEDS: MELATONIN 5 MG TABLETS PO SCH (21:45)
[2020-03-12] MEDS: hydrOXYzine PAMOATE 25 MG CAPSULE (FP) PO PRN (21:46)
[2020-03-13] MEDS: IBUPROFEN 400 MG TABLET (FP) PO PRN (09:28)
[2020-03-13] MEDS: PRENATAL VITAMINS W/ FOLIC ACID TABLET (FP) PO SCH (09:29)
[2020-03-13] MEDS: METHYL SALICYLATE/MENTHOL OINT 30 GM TUBE TP SCH (09:29)
[2020-03-13] MEDS: LIDOCAINE 5% TOPICAL PATCH TP SCH (09:30)
[2020-03-13] MEDS: NICOTINE 14 MG/24 HOURS TOPICAL PATCH TD SCH (10:50)
[2020-03-13] MEDS: NYSTATIN 500,000 UNITS/5 ML SUSPENSION PO SCH ×2 (11:51→16:59)
--- NOTE | 2020-03-13 13:46 | PN ---
[facility] Progress Note Note: Patient is referred for oral thrush. On exam, she is noted with white lesions on the roof of the mouth, there is slight redness present. She denies pain, difficulty swallowing, fever or chills. PMHx: HIV PE Vital Signs Period Temp Pulse Resp BP Sys/Gaines Pulse Ox Last 24 Hr 98.0 F 98-98 HEENT: Oral mucosa moist, white patches to the roof of the mouth, no adenopathy, neck supple A/P Oral thrush-Nystatin oral suspension as ordered.
[2020-03-13] MEDS: hydrOXYzine PAMOATE 25 MG CAPSULE (FP) PO PRN ×2 (17:00→23:58)
[2020-03-13] MEDS: THIAMINE HCL 100 MG TABLET (FP) PO SCH (22:24)
[2020-03-13] MEDS: MELATONIN 5 MG TABLETS PO SCH ×2 (22:24→23:56)
[2020-03-13] MEDS: LIDOCAINE PATCH REMOVAL MC SCH (22:24)
[2020-03-14] MEDS: NYSTATIN 500,000 UNITS/5 ML SUSPENSION PO SCH ×4 (06:39→17:00)
[2020-03-14] MEDS: LIDOCAINE 5% TOPICAL PATCH TP SCH (10:15)
[2020-03-14] MEDS: METHYL SALICYLATE/MENTHOL OINT 30 GM TUBE TP SCH (10:15)
[2020-03-14] MEDS: NICOTINE 14 MG/24 HOURS TOPICAL PATCH TD SCH (10:16)
[2020-03-14] MEDS: PRENATAL VITAMINS W/ FOLIC ACID TABLET (FP) PO SCH (10:16)
--- NOTE | 2020-03-14 13:27 | CONSULT ---
[facility] Psychiatric Consult - Data Date of interview: 03/14/20 Admission source: Transfer from [address] [place] [address]. Identifying data: Admission to [address] for this 54 y/o AA female, in post-detoxification from [address] [place] [address], currently undergoing rehabilitation treatment for maintenance of sobriety and management of co-morbidities (chronic insomnia + affective dysregulation). Patient is single, mother of one, domiciled, unemployed and supported on [employer] funds. Substance Abuse History: Discussed with the patient. MARKUS profile as follows : Smoking history: Current every day smoker. Have you smoked in the past 12 months: No. Aproximately how many cigarettes per day: 6. Hx Chewing Tobacco Use: No. Initiated information on smoking cessation: Yes. 'Breaking Loose' booklet given: 02/26/20. - Substance & Tx. History. Hx Alcohol Use: Yes. Hx Substance Use: Yes. Substance Use Type: Cocaine, Heroin, Opiates. Hx Substance Use Treatment: Yes ([facility]). - Substances abused. Alcohol. Substance route: Oral. Frequency: Daily. Amount used: 2 pints. Age of first use: 18. Date of last use: 02/26/20. Heroin. Substance route: Inhalation. Frequency: Daily. Amount used: 12 bags. Age of first use: 18. Date of last use: 02/26/20 Medical History: Medical profile is remarkable for HIV infection since 1997 (non-adherent to ART medications), chronic lumbar pain, antecedents of cholecystectomy + ectopic (age 18) and herniorraphy (incisional hernia) in 2002. No known allergies. Psychiatric History: Patient endorses a distant history of psychiatric hospitalizations at a facility located in [place], [place]. Was diagnosed with MDD at the time (exact date not recalled). As per records ([facility]), she entered psychiatric treatment in 1999 to address impulse control issues (self-mutilation) + mood dysregulation + refractory insomnia. Ms Cottrell has been prescribed various drugs (haldol, prozac, amitriptyline, remeron, trazodone and other unnamed medications). Lost to [facility] care follow-up for months, as per self- report. Patient admits to a recent (2018) history of suicide attempt via overdose with medications (medically managed at [facility]). Physical/Sexual Abuse/Trauma History: Not discussed. Patient declines. Additional Comment: Urine drug screen results: SHIRA-Cocaine, FEN-Fentanyl, MOP- Opiates, BZO-Benzodiazepines. Noted on admission (02/26/20). Mental Status Exam - Mental Status Exam Alert and Oriented to: Time, Place, Person Cognitive Function: Good Patient Appearance: Well Groomed (short stature, cachectic frame) Mood: Hopeful Affect: Appropriate, Normal Range Patient Behavior: Appropriate, Cooperative Speech Pattern: Clear, Appropriate Voice Loudness: Normal Thought Process: Intact, Goal Oriented Thought Disorder: Not Present Hallucinations: Denies Suicidal Ideation: Denies Homicidal Ideation: Denies Insight/Judgement: Fair Sleep: Poorly, Difficulty falling asleep Appetite: Poor, Weight loss Gait/Station: Normal Psychiatric Findings - Problem List ([place] 1, 2,3) (1) Alcohol use disorder Current Visit: Yes Status: Chronic (2) Opioid dependence Current Visit: Yes Status: Chronic Qualifiers: Substance use status: uncomplicated Qualified Code(s): F11.20 - Opioid dependence, uncomplicated (3) Cocaine dependence Current Visit: Yes Status: Chronic Qualifiers: Substance use status: uncomplicated Qualified Code(s): F14.20 - Cocaine dependence, uncomplicated (4) Nicotine dependence Current Visit: Yes Status: Chronic Qualifiers: Nicotine product type: cigarettes Substance use status: in withdrawal Qualified Code(s): F17.213 - Nicotine dependence, cigarettes, with withdrawal (5) Insomnia Current Visit: Yes Status: Chronic - Initial Treatment Plan Initial Treatment Plan: Psychoeducation. Motivational counseling. Support. AA/NA meetings (COVID-19 precautions : face mask, social distancing, hand washing). Re creational/group/individual therapy. Resumed, at the patient's request : trazodone 50 mg po hs. Side effects/benefits discussed and consent (verbal) granted by patient. Observation.
[2020-03-14] MEDS: traZODone HCL 50 MG TABLET (FP) PO SCH (21:45)
[2020-03-14] MEDS: MELATONIN 5 MG TABLETS PO SCH (21:46)
[2020-03-14] MEDS: LIDOCAINE PATCH REMOVAL MC SCH (21:46)
[2020-03-14] MEDS: THIAMINE HCL 100 MG TABLET (FP) PO SCH (21:46)
[2020-03-15] MEDS ORDERED: MASKS NR ONE ×2 (07:04→08:27)
[2020-03-15] MEDS: NYSTATIN 500,000 UNITS/5 ML SUSPENSION PO SCH ×5 (07:07→23:36)
[2020-03-15] MEDS: PRENATAL VITAMINS W/ FOLIC ACID TABLET (FP) PO SCH (10:26)
[2020-03-15] MEDS: LIDOCAINE 5% TOPICAL PATCH TP SCH (10:26)
[2020-03-15] MEDS: METHYL SALICYLATE/MENTHOL OINT 30 GM TUBE TP SCH (10:26)
[2020-03-15] MEDS: NICOTINE 14 MG/24 HOURS TOPICAL PATCH TD SCH (10:26)
--- NOTE | 2020-03-15 11:45 | PN ---
[facility] Progress Note Note: Patient is scheduled for discharge tomorrow. Script for 30 days supply of Trazadone 50 mg/hs will be electronically transmitted to [facility], [facility] [address] [facility] [place] [address]
--- NOTE | 2020-03-15 14:26 | DS ---
[facility] Rehab Discharge Summary - [facility] Rehab Discharge Summary Admission Date: 03/02/20 Discharge Date: 03/16/20 - History Present History: Alcohol dependence, Opioid dependence Pertinent Past History: 54 years old female with a long history of alcohol and heroin dependence is seeking admission. Patient's last admission to detox was for the period 09/24/2019-09/29/2019. She reports that she uses 12 bags of heroin daily and drinks 2 pints of vodka daily. She became dependent on both at age 18. She has medical history of HIV+ and denies psych. history and suicidal ideation at this time. She is unemployed, lives in the [place] and denies legal issues. 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 - Discharge Physical Exam Vital Signs: Vital Signs Temperature 98.2 F 03/15/20 07:00 Pulse Rate 84 03/15/20 07:00 Respiratory Rate 16 03/15/20 07:00 Blood Pressure 119/90 03/15/20 07:00 O2 Sat by Pulse Oximetry (%) 96 03/15/20 07:00 Pertinent Admission Physical Exam Findings: Physical General Appearance: No apparent distress HEENTM: Normocephalic, PERRLA, EOMI, Sclera clear Respiratory: No Respiratory Distress Abdominal +Bowel Soundsn Musculoskeletal: full weight bearing, steady gait, Full ROM Neurological: CN 2-12 intact, A+O x4, Muscle strength Equal Integumentary: Color consistent throughout trunk and extremities Lymphatic: No palpable lymph nodes. - Treatment Discharge Condition: Outpatient referral accepted (patient will return to [facility]. Medically stable for discharge.) Hospital Course: Patient attended groups, had 1;1 with her counselor, was seen by the psychiatric service. She was seen by this provider for elevated liver enzymes and elevated BUN. On repeat labs. the BUN trended down, but the AST remained high. She has a hx of HEP C and HIV, and was recently taken off her HIV medications because of her liver enzymes. Patient to follow up on discharge. She also has oral thrush, probably as a result of HIV and low CD4 count. Patient plans to return to her PCP for treatment. She also c/o knee pain, which was treated. - Medication Discharge Medications: Ambulatory Orders Naloxone HCl [Narcan] 4 mg NS ASDIR PRN #1 spray 03/01/20 Nystatin Oral Suspension - [Nystatin Oral Susp 138294 Units/5 ML -] 500,000 units PO Q6HPO #1 bottle 03/15/20 traZODone HCL [Desyrel -] 50 mg PO HS #30 tablet 03/15/20 - Medication-Assisted Treatment (MAT) Medication-Assisted Treatment (MAT): No - Discharge Instructions Diet, activity, other medical instructions: Diet:as tolerated Activity: as tolerated Other medical instructions: Please follow up at [facility]. - Diagnosis (1) Alcohol use disorder Current Visit: Yes Status: Chronic (2) Cocaine abuse Current Visit: Yes Status: Chronic (3) Opioid dependence Current Visit: Yes Status: Chronic Qualifiers: Substance use status: uncomplicated Qualified Code(s): F11.20 - Opioid dependence, uncomplicated - Follow-up Referral Minutes to complete discharge: 15 - AMA Did Patient Leave Against Medical Advice: No
[2020-03-15] MEDS: MELATONIN 5 MG TABLETS PO SCH (21:11)
[2020-03-15] MEDS: traZODone HCL 50 MG TABLET (FP) PO SCH (21:11)
[2020-03-15] MEDS: THIAMINE HCL 100 MG TABLET (FP) PO SCH (21:11)
[2020-03-15] MEDS: LIDOCAINE PATCH REMOVAL MC SCH (21:11)
[2020-03-16] MEDS: NYSTATIN 500,000 UNITS/5 ML SUSPENSION PO SCH (06:43)
[2020-03-16 07:10] VITALS: BP 121/81; PULSE 79; TEMP 98
[2020-03-16] MEDS: LIDOCAINE 5% TOPICAL PATCH TP SCH (09:18)
[2020-03-16] MEDS: IBUPROFEN 400 MG TABLET (FP) PO PRN (09:19)
[2020-03-16] MEDS: METHYL SALICYLATE/MENTHOL OINT 30 GM TUBE TP SCH (09:20)
[2020-03-16] MEDS: NICOTINE 14 MG/24 HOURS TOPICAL PATCH TD SCH (09:20)
== END 2020-03-16 09:27 | disposition home or self-care (01) | DRG 772 ==
LOC: YASAS 10:37 → Y3W 10:38
PROVIDERS: ADMIT Allergy & Immunology; ATTEND Allergy & Immunology
PROC: HZ42ZZZ Group Counseling for Substance Abuse Treatment, Cognitive-Behavioral (ICD-10-PCS; principal; 2020-03-02)
DX: F10.20 Alcohol dependence, uncomplicated (principal); F11.20 Opioid dependence, uncomplicated; F14.20 Cocaine dependence, uncomplicated; F17.210 Nicotine dependence, cigarettes, uncomplicated; F34.81 Disruptive mood dysregulation disorder; Z21 Asymptomatic human immunodeficiency virus [HIV] infection status; B37.0 Candidal stomatitis; G47.00 Insomnia, unspecified; B19.10 Unspecified viral hepatitis B without hepatic coma; R74.8 Abnormal levels of other serum enzymes; M79.89 Other specified soft tissue disorders; M25.562 Pain in left knee; M25.462 Effusion, left knee; M54.5 Low back pain; G89.29 Other chronic pain; R63.4 Abnormal weight loss; Z68.20 Body mass index [BMI] 20.0-20.9, adult; Z90.49 Acquired absence of other specified parts of digestive tract; Z86.19 Personal history of other infectious and parasitic diseases; Z91.5 Personal history of self-harm; Z98.890 Other specified postprocedural states; Z56.0 Unemployment, unspecified
CPT/HCPCS: 36415; 80048; 84450; 84520